=== PATIENT | male | born 1940 | race African-American/Black ===

== ENCOUNTER 2017-08-04 05:47 | Day surgery (SDC) | payer MEDICARE ==
[2017-08-04] MEDS ORDERED: NACL 0.9% 500 ML 500 ML ONE (06:01)
[2017-08-04 06:57] LABS: Basophils % (Auto) 0.9 % (0.0-1.8); Eosinophils % (Auto) 3.4 % (0.0-4.3); Hematocrit 35.2 % (35.5-45.6); Hemoglobin 12.1 gm/dl (11.8-15.2); Mean Corpuscular HGB Conc 34 % (32-34); Mean Corpuscular Hemoglobin 32 pg (28-32); Mean Corpuscular Volume 92 fl (84-94); Platelet Count 181 K/mm3 (140-440); Red Blood Count 3.82 M/mm3 (3.65-5.03); Red Cell Distribution Width 12.6 % (13.2-15.2); White Blood Count 7.5 K/mm3 (4.5-11.0)
[2017-08-04] MEDS ORDERED: NACL 0.9% 500 ML 500 ML IV SCH (07:00)
[2017-08-04 07:09] LABS: INR 0.95 (0.87-1.13)
[2017-08-04 07:12] LABS: Calcium 9.4 mg/dL (8.4-10.2); Chloride 102.2 mmol/L (98-107); Potassium 3.7 mmol/L (3.6-5.0)
[2017-08-04] MEDS ORDERED: HEPARIN/NS 5000 UNIT/500ML(CATH LAB) 1,000 ML IR ONE (08:26)
[2017-08-04] MEDS ORDERED: HEPARIN 10,000 UNITS/10 ML ONE (08:26)
[2017-08-04] MEDS ORDERED: CALAN ONE (08:27)
[2017-08-04] MEDS ORDERED: NITROGLYCERIN SYRINGE 3 ML ONE (08:27)
[2017-08-04] MEDS ORDERED: XYLOCAINE 2% INFILTRATI ONE (08:27)
[2017-08-04] MEDS ORDERED: ECOTRIN PO ONE (08:30)
[2017-08-04] MEDS: VERSED ONE ×2 (08:32→08:50)
[2017-08-04] MEDS: SUBLIMAZE ONE ×2 (08:32→08:50)
--- NOTE | 2017-08-04 10:40 | Discharge Summary ---
Short Stay Discharge Plan Diet: low fat, low cholesterol, low salt Special Instructions: other (Encourage fluids for 48hrs post cardiac cath.) Follow up with: CHRISTINA SALINAS MD [Primary Care Provider] - 7 Days HERMES JACQUES MD [Staff Physician] - 7 Days
--- NOTE | 2017-08-04 11:31 | Cardiac Catherization Report ---
HISTORY: The patient is a 76-year-old gentleman with a history of recurrent chest pain, on medications with an abnormal stress thallium study. Coronary angiography was recommended. PROCEDURE PERFORMED: Left heart catheterization, ventriculography, and coronary angiography via the right radial artery using 5-Azeri Roxie catheters and the pigtail catheter. COMPLICATIONS: None. HEMODYNAMICS: Central aortic pressure 95/55. Left ventricular pressure 119/27. PREPROCEDURE DIAGNOSIS: Coronary artery disease. POSTPROCEDURE DIAGNOSES: Moderate coronary artery disease with angina. SEDATION: Intravenous Versed and fentanyl. TISSUE SAMPLES: None. COMPLICATIONS: None. ESTIMATED BLOOD LOSS: 10-20 mL. ANGIOGRAPHIC RESULTS: 1. Left coronary artery: This vessel has moderate calcification and is diffusely irregular. The left main is free of remarkable disease. The circumflex contains a 50% stenosis in the posterolateral branch. The LAD contains a moderately long 50% stenosis in the mid portion. 2. Right coronary artery: This vessel is the dominant vessel and it is diffusely irregular. The proximal portion contains a 50% stenosis and the mid portion contains 40% stenosis. The RV marginal branch has an ostial 50% stenosis. 3. Left ventricle: The ventriculogram reveals a normal-sized left ventricle with normal systolic function. The ejection fraction is 60-65%, mild calcification to be seen in the thoracic aorta. FINAL IMPRESSION: Moderate diffuse coronary artery disease with normal left ventricular function and symptoms suggestive of angina. PLAN: Aggressive medical therapy, CAD risk factor modification, office followup within 1 week. Encourage fluids for 48 hours. Repeat BNP in the office. JOB# [id number] ARIN/NTS
[2017-08-04] MEDS ORDERED: ULTRAM PO PRN (12:00)
[2017-08-04 12:27] VITALS: BP 121/76
== END 2017-08-04 11:30 | disposition home or self-care (01) ==
LOC: CATHLABREC 05:47
PROVIDERS: ATTEND Internal Medicine
DX: I25.118 Atherosclerotic heart disease of native coronary artery with other forms of angina pectoris (principal); I10 Essential (primary) hypertension; I48.4 Atypical atrial flutter; E78.5 Hyperlipidemia, unspecified; E03.9 Hypothyroidism, unspecified; E10.9 Type 1 diabetes mellitus without complications; Z79.899 Other long term (current) drug therapy; Z79.01 Long term (current) use of anticoagulants; Z79.82 Long term (current) use of aspirin; Z87.891 Personal history of nicotine dependence
CPT/HCPCS: 36415; 80048; 82962; 85025; 85610; 85730; 93005; 93010; 93458; 99156; 99157; C1894; J1644; J2250; J3010; J7040; Q9967

== ENCOUNTER 2020-10-27 15:03 | Emergency (ER) | payer MEDICARE ==
--- NOTE | 2020-10-27 15:16 | Event Note ---
ED Screening Note ED Screening Note: sent by PCP for H/H no blood in stool no CP no SOB no abd pain never had transfusion before PMHx DM, COPD, hypothyroidism, HLD, HTN This initial assessment/diagnostic orders/clinical plan/treatment(s) is/are subject to change based on patients health status, clinical progression and re-assessment by fellow clinical providers in the ED. Further treatment and workup at subsequent clinical providers discretion. Patient/guardian urged not to elope from the ED as their condition may be serious if not clinically assessed and managed. Initial orders include: labs
[2020-10-27 16:19] LABS: Hematocrit 24.9 % (35.5-45.6); Hemoglobin 8.3 gm/dl (11.8-15.2); Mean Corpuscular HGB Conc 33 % (32-34); Mean Corpuscular Volume 101 fl (84-94); Platelet Count 429 K/mm3 (140-440); Red Blood Count 2.46 M/mm3 (3.65-5.03)
[2020-10-27 16:29] LABS: Albumin 2.9 g/dL (3.9-5); Calcium 8.5 mg/dL (8.4-10.2)
[2020-10-27 18:29] LABS: Band Neutrophils # (Manual) 0.3 K/mm3; Total Cells Counted 100
[2020-10-27 18:31] LABS: Anisocytosis 1+; Ovalocytes Rare
[2020-10-27 18:32] LABS: Platelet Estimate Consistent w Auto
--- NOTE | 2020-10-27 19:27 | Emergency Department Report ---
ED Recheck HPI - General Chief Complaint: Recheck/Abnormal Lab/Rx Stated Complaint: BLOOD DISORDER Time Seen by Provider: 10/27/20 15:15 Source: patient Mode of arrival: Ambulatory Limitations: No Limitations - History of Present Illness Initial Comments: 79-year-old male, history of COPD, diabetes, throat cancer status post treatment, COVID-19, presents to ED for blood transfusion. Patient had lab work done at PCPs office 5 days ago which shows hemoglobin of 6.7. Patient advised to come to the emergency room for transfusion. MD Complaint: abnormal lab -: days(s) (5) Returns Today for: CBOAL Symptoms Since Prior Visit: no new symptoms Associated Symptoms: denies: fever, chills, chest pain, shortness of breath, nasuea, abdominal pain - Related Data Home Medications Medication Instructions Recorded Confirmed Last Taken Aspirin [Aspirin Enteric Coated] 81 mg PO DAILY 08/11/13 09/26/20 08/03/17 Metoprolol [Lopressor TAB] 50 mg PO DAILY 08/11/13 09/26/20 08/03/17 amLODIPine 10 mg PO DAILY 08/11/13 09/26/20 08/03/17 Tamsulosin [Flomax] 0.4 mg PO DAILY 08/14/13 09/26/20 08/03/17 Insulin NPH/Regular [NovoLIN 70/30] 52 unit SQ QAM 08/19/13 09/26/20 08/03/17 Losartan/Hydrochlorothiazide 1 tab PO QDAY 08/04/15 09/26/20 Unknown [Hyzaar 50-12.5 TAB] Rosuvastatin (Nf) [Crestor] 10 mg PO QHS 08/04/15 09/26/20 08/03/17 Insulin NPH/Regular [NovoLIN 70/30] 56 unit SQ QPM 08/04/17 09/26/20 08/03/17 Levocetirizine Dihydrochloride 5 mg PO DAILY 08/04/17 09/26/20 08/03/17 [Xyzal] Levothyroxine [Synthroid] 125 mcg PO QAM 08/04/17 09/26/20 08/03/17 Losartan/Hydrochlorothiazide 1 tab PO DAILY 08/04/17 09/26/20 08/03/17 [Hyzaar 100-12.5 Tablet] Previous Rx's Medication Instructions Recorded Last Taken Type Albuterol Mdi (or & Nicu Only) 2 puff IH Q4H PRN #1 vial 08/19/13 Unknown Rx [ProAir HFA Inhaler] Montelukast [Singulair] 10 mg PO QHS #30 tablet 08/19/13 08/03/17 Rx Acetaminophen [Acetaminophen TAB] 650 mg PO Q4H PRN tablet 09/29/20 Unknown Rx Potassium Chloride [K-Dur] 10 meq PO QDAY #4 tablet 09/29/20 Unknown Rx dexAMETHasone [Dexamethasone] 6 mg PO DAILY #4 tablet 09/29/20 Unknown Rx Allergies Allergy/AdvReac Type Severity Reaction Status Date / Time amoxicillin Allergy Unknown Verified 08/04/15 12:51 ED Review of Systems ROS: Stated complaint: BLOOD DISORDER Other details as noted in HPI Comment: All other systems reviewed and negative Constitutional: denies: chills, fever Respiratory: denies: cough, shortness of breath Cardiovascular: denies: chest pain Gastrointestinal: denies: abdominal pain, vomiting, diarrhea Genitourinary: denies: dysuria, frequency ED Past Medical Hx - Past Medical History Previous Medical History?: Yes Hx Hypertension: Yes Hx Heart Attack/AMI: No Hx Diabetes: Yes (insulin) Hx GERD: Yes Hx Arthritis: Yes Hx Headaches / Migraines: No Hx COPD: Yes Hx HIV: No Additional medical history: family unsure of hx pt unable to speak, throat cancer and post treatment had difficulty digesting his food this and put on Creon, elevated cholesterol - Social History Smoking Status: Former Smoker - Medications Home Medications: Home Medications Medication Instructions Recorded Confirmed Last Taken Type Aspirin [Aspirin Enteric Coated] 81 mg PO DAILY 08/11/13 09/26/20 08/03/17 History Metoprolol [Lopressor TAB] 50 mg PO DAILY 08/11/13 09/26/20 08/03/17 History amLODIPine 10 mg PO DAILY 08/11/13 09/26/20 08/03/17 History Tamsulosin [Flomax] 0.4 mg PO DAILY 08/14/13 09/26/20 08/03/17 History Albuterol Mdi (or & Nicu Only) 2 puff IH Q4H PRN #1 vial 08/19/13 09/26/20 Unknown Rx [ProAir HFA Inhaler] Insulin NPH/Regular [NovoLIN 70/30] 52 unit SQ QAM 08/19/13 09/26/20 08/03/17 History Montelukast [Singulair] 10 mg PO QHS #30 tablet 08/19/13 09/26/20 08/03/17 Rx Losartan/Hydrochlorothiazide 1 tab PO QDAY 08/04/15 09/26/20 Unknown History [Hyzaar 50-12.5 TAB] Rosuvastatin (Nf) [Crestor] 10 mg PO QHS 08/04/15 09/26/20 08/03/17 History Insulin NPH/Regular [NovoLIN 70/30] 56 unit SQ QPM 08/04/17 09/26/20 08/03/17 History Levocetirizine Dihydrochloride 5 mg PO DAILY 08/04/17 09/26/20 08/03/17 History [Xyzal] Levothyroxine [Synthroid] 125 mcg PO QAM 08/04/17 09/26/20 08/03/17 History Losartan/Hydrochlorothiazide 1 tab PO DAILY 08/04/17 09/26/20 08/03/17 History [Hyzaar 100-12.5 Tablet] Acetaminophen [Acetaminophen TAB] 650 mg PO Q4H PRN tablet 09/29/20 Unknown Rx Potassium Chloride [K-Dur] 10 meq PO QDAY #4 tablet 09/29/20 Unknown Rx dexAMETHasone [Dexamethasone] 6 mg PO DAILY #4 tablet 09/29/20 Unknown Rx ED Physical Exam - General Limitations: No Limitations General appearance: alert, in no apparent distress - Head Head exam: Present: atraumatic, normocephalic - Eye Eye exam: Present: normal appearance, EOMI - ENT ENT exam: Present: mucous membranes moist - Neck Neck exam: Present: normal inspection - Respiratory Respiratory exam: Present: normal lung sounds bilaterally. Absent: respiratory distress - Cardiovascular Cardiovascular Exam: Present: regular rate, normal rhythm - GI/Abdominal GI/Abdominal exam: Present: soft. Absent: distended, tenderness - Extremities Exam Extremities exam: Present: normal inspection - Neurological Exam Neurological exam: Present: alert, oriented X3 - Psychiatric Psychiatric exam: Present: normal affect, normal mood - Skin Skin exam: Present: warm, dry, intact, normal color ED Course Vital Signs 10/27/20 10/27/20 15:17 20:47 Temperature 97.8 F Pulse Rate 72 69 Respiratory 18 16 Rate Blood Pressure 123/63 121/66 [Right] O2 Sat by Pulse 97 98 Oximetry - Reevaluation(s) Reevaluation #1: 10/27/20 21:00 Son states pt unable to urinate at this time. Refuses straight cath. Son states that he is ready to take patient home. Spoke to son using Turkmen language line retail stock clerk. Explained that WBCs elevated, want to r/o UTI. Son undertands there may be an occult infection. Pt afebrile, not tachycardic, BP normal at this time. Advised to return to ED or f/u w/ PCP if he begins to feel abnormal in any way or show any signs of infection. ED Recheck MDM - Medical Decision Making 79-year-old male presents to ED for hemoglobin of 6.7. Labs drawn 5 days ago. PCP instructed patient to come to ED for blood transfusion. Today, hemoglobin is 8.3. Patient not require a blood transfusion at this time. Of note, WBCs elevated to 16. Negative review of systems. Patient is afebrile and remainder of vitals are normal. Patient unable to give urine sample while here in the ED, however also refusing catheterization. Spoke with son about need for urine sample and he understands. Advised son to take patient to PCP or return to ED if any signs of infection. Will discharge at this time. Critical care attestation.: If time is entered above; I have spent that time in minutes in the direct care of this critically ill patient, excluding procedure time. ED Disposition Clinical Impression: Anemia, Leukocytosis Disposition: -01 TO HOME OR SELFCARE Is pt being admited?: No Condition: Stable Instructions: Complete Blood Count Additional Instructions: Hemoglobin is 8.3 today. Referrals: PRIMARY CARE, [Primary Care Provider] - 3-5 Days Time of Disposition: 20:57
[2020-10-27 20:48] VITALS: BP 121/66
== END 2020-10-27 20:59 | disposition home or self-care (01) ==
LOC: ED 15:03
DX: D64.9 Anemia, unspecified (principal); D72.829 Elevated white blood cell count, unspecified; I10 Essential (primary) hypertension; E11.9 Type 2 diabetes mellitus without complications; K21.9 Gastro-esophageal reflux disease without esophagitis; M19.91 Primary osteoarthritis, unspecified site; J44.9 Chronic obstructive pulmonary disease, unspecified; Z87.891 Personal history of nicotine dependence; Z79.4 Long term (current) use of insulin; Z79.899 Other long term (current) drug therapy; Z88.1 Allergy status to other antibiotic agents
CPT/HCPCS: 36415; 80053; 85007; 85025; 86850; 86900; 86901

== ENCOUNTER 2021-05-01 07:21 | Observation (INO) | payer MEDICARE ==
--- NOTE | 2021-05-01 09:11 | Emergency Department Report ---
HPI - General Chief Complaint: Recheck/Abnormal Lab/Rx Time Seen by Provider: 05/01/21 08:49 - HPI HPI: Room 2 The patient is an 80-year-old male present with a chief complaint of anemia. The patient had routine labs drawn by his primary physician yesterday. This morning the patient was called and told to come to the emergency department as his hemoglobin was low at 4.5. Patient denies symptoms including nausea vomiting diarrhea. Patient denies melena. ED Past Medical Hx - Past Medical History Hx Hypertension: Yes Hx Diabetes: Yes (insulin) Hx GERD: Yes Hx of Cancer: Yes (Throat CA, prostate CA) Hx Arthritis: Yes Hx COPD: Yes Additional medical history: family unsure of hx pt unable to speak, throat cancer and post treatment had difficulty digesting his food this and put on Creon, elevated cholesterol - Surgical History Additional Surgical History: "Prostate surgery" - Family History Family history: no significant - Social History Smoking Status: Never Smoker Substance Use Type: None - Medications Home Medications: Home Medications Medication Instructions Recorded Confirmed Last Taken Type Aspirin [Aspirin Enteric Coated] 81 mg PO DAILY 08/11/13 09/26/20 08/03/17 History Metoprolol [Lopressor TAB] 50 mg PO DAILY 08/11/13 09/26/20 08/03/17 History amLODIPine 10 mg PO DAILY 08/11/13 09/26/20 08/03/17 History Tamsulosin [Flomax] 0.4 mg PO DAILY 08/14/13 09/26/20 08/03/17 History Albuterol Mdi (or & Nicu Only) 2 puff IH Q4H PRN #1 vial 08/19/13 09/26/20 Unknown Rx [ProAir HFA Inhaler] Insulin NPH/Regular [NovoLIN 70/30] 52 unit SQ QAM 08/19/13 09/26/20 08/03/17 History Montelukast [Singulair] 10 mg PO QHS #30 tablet 08/19/13 09/26/20 08/03/17 Rx Losartan/Hydrochlorothiazide 1 tab PO QDAY 08/04/15 09/26/20 Unknown History [Hyzaar 50-12.5 TAB] Rosuvastatin (Nf) [Crestor] 10 mg PO QHS 08/04/15 09/26/20 08/03/17 History Insulin NPH/Regular [NovoLIN 70/30] 56 unit SQ QPM 08/04/17 09/26/20 08/03/17 History Levocetirizine Dihydrochloride 5 mg PO DAILY 08/04/17 09/26/20 08/03/17 History [Xyzal] Levothyroxine [Synthroid] 125 mcg PO QAM 08/04/17 09/26/20 08/03/17 History Losartan/Hydrochlorothiazide 1 tab PO DAILY 08/04/17 09/26/20 08/03/17 History [Hyzaar 100-12.5 Tablet] Acetaminophen [Acetaminophen TAB] 650 mg PO Q4H PRN tablet 09/29/20 Unknown Rx Potassium Chloride [K-Dur] 10 meq PO QDAY #4 tablet 09/29/20 Unknown Rx dexAMETHasone [Dexamethasone] 6 mg PO DAILY #4 tablet 09/29/20 Unknown Rx ED Review of Systems ROS: Stated complaint: BLOOD TRANSFUSION Other details as noted in HPI Constitutional: no symptoms reported Eyes: denies: eye pain ENT: denies: throat pain Respiratory: no symptoms reported Cardiovascular: denies: chest pain Endocrine: no symptoms reported Gastrointestinal: denies: vomiting, melena Genitourinary: denies: dysuria Musculoskeletal: denies: back pain Neurological: denies: headache Physical Exam - Physical Exam Vital Signs: Vital Signs 05/01/21 05/01/21 07:43 07:46 Temperature 98.0 F Pulse Rate 65 Respiratory 17 Rate Blood Pressure 164/63 O2 Sat by Pulse 94 Oximetry Physical Exam: GENERAL: The patient is well-developed well-nourished male lying on stretcher not appearing to be in acute distress. [] HEENT: Normocephalic. Atraumatic. Extraocular motions are intact. Patient has moist mucous membranes. NECK: Supple. Trachea midline CHEST/LUNGS: Clear to auscultation. There is no respiratory distress noted. HEART/CARDIOVASCULAR: Regular. There is no tachycardia. There is no gallop rub or murmur. ABDOMEN: Abdomen is soft, but diffuse discomfort to palpation. No rebound or guarding. Patient has normal bowel sounds. There is no abdominal distention. SKIN: There is no rash. There is no edema. There is no diaphoresis. NEURO: The patient is awake, alert, and oriented. The patient is cooperative. The patient has no focal neurologic deficits. The patient has normal speech MUSCULOSKELETAL: There is no evidence of acute injury. RECTAL: Faint guaiac positive brown stool ED Course Vital Signs 05/01/21 05/01/21 07:43 07:46 Temperature 98.0 F Pulse Rate 65 Respiratory 17 Rate Blood Pressure 164/63 O2 Sat by Pulse 94 Oximetry - Consultations Consultation #1: 05/01/21 10:42 GI paged 05/01/21 10:[address] Cabral ED Medical Decision Making - Lab Data Result diagrams: 05/01/21 09:25 05/01/21 09:25 Laboratory Tests 05/01/21 05/01/21 05/01/21 07:44 09:25 09:25 WBC 6.2 RBC 1.76 L Hgb 4.9 L* Hct 15.6 L* MCV 87 MCH 28 MCHC 32 RDW 18.4 H Plt Count 201 Lymph % (Auto) 20.1 [place] % (Auto) 8.2 H Eos % (Auto) 4.5 H Baso % (Auto) 2.8 H Lymph # (Auto) 1.3 [place] # (Auto) 0.5 Eos # (Auto) 0.3 Baso # (Auto) 0.2 H Seg Neutrophils % 64.4 Seg Neutrophils # 4.0 PT 14.8 INR 1.10 APTT 31.0 Sodium Potassium Chloride Carbon Dioxide Anion Gap BUN Creatinine Estimated GFR BUN/Creatinine Ratio Glucose POC Glucose 190 H Calcium Blood Type Crossmatch 05/01/21 05/01/21 09:25 09:27 WBC RBC Hgb Hct MCV MCH MCHC RDW Plt Count Lymph % (Auto) [place] % (Auto) Eos % (Auto) Baso % (Auto) Lymph # (Auto) [place] # (Auto) Eos # (Auto) Baso # (Auto) Seg Neutrophils % Seg Neutrophils # PT INR APTT Sodium 141 Potassium 4.2 Chloride 110.9 H Carbon Dioxide 25 Anion Gap 9 BUN 15 Creatinine 1.6 H Estimated GFR 42 BUN/Creatinine Ratio 9 Glucose 182 H POC Glucose Calcium 7.4 L Blood Type B POSITIVE Crossmatch See Detail - Differential Diagnosis GI bleed, anemia Critical care attestation.: If time is entered above; I have spent that time in minutes in the direct care of this critically ill patient, excluding procedure time. ED Disposition Clinical Impression: GI bleed, Anemia Disposition: ADMITTED INPATIENT Is pt being admited?: Yes Does the pt Need Aspirin: No Condition: Fair Referrals: LISET HOLT MD [Primary Care Provider] - 3-5 Days Time of Disposition: 10:42 (Hospitalist called (Dr. Mendoza))
[2021-05-01 09:52] LABS: Basophils # (Auto) 0.2 K/mm3 (0.0-0.1); Basophils % (Auto) 2.8 % (0.0-1.8); Eosinophils # (Auto) 0.3 K/mm3 (0.0-0.4); Eosinophils % (Auto) 4.5 % (0.0-4.3); Lymphocytes # (Auto) 1.3 K/mm3 (1.2-5.4); Lymphocytes % (Auto) 20.1 % (13.4-35.0); Mean Corpuscular HGB Conc 32 % (32-34); Mean Corpuscular Volume 87 fl (84-94); Monocytes # (Auto) 0.5 K/mm3 (0.0-0.8); Monocytes % (Auto) 8.2 % (0.0-7.3); Platelet Count 201 K/mm3 (140-440); Red Cell Distribution Width 18.4 % (13.2-15.2)
[2021-05-01 09:58] LABS: Red Blood Count 1.76 M/mm3 (3.65-5.03)
[2021-05-01 10:06] LABS: Hematocrit 15.6 % (35.5-45.6); Hemoglobin 4.9 gm/dl (11.8-15.2); INR 1.1 (0.87-1.13)
[2021-05-01 10:07] LABS: Calcium 7.4 mg/dL (8.4-10.2)
[2021-05-01] MEDS ORDERED: SODIUM CHLORIDE 0.9% 500 ML 500 ML IV ONE (10:12)
[2021-05-01] MEDS ORDERED: ACETAMINOPHEN 325 MG TAB PO PRN (11:20)
[2021-05-01] MEDS ORDERED: ONDANSETRON 4 MG/2 ML INJ IV PRN (11:20)
[2021-05-01] MEDS ORDERED: oxyCODONE /ACETAMINOPHEN 5-325MG TAB PO PRN (11:20)
[2021-05-01] MEDS ORDERED: DEXTROSE 50% IN WATER (25GM) 50 ML SYRINGE IV PRN ×2 (11:22→16:25)
[2021-05-01] MEDS ORDERED: SODIUM CHLORIDE 0.9% 1000 ML 1,000 ML IV SCH (11:30)
[2021-05-01] MEDS: INSULIN REGULAR, HUMAN 100 UNITS/1 ML SUB-Q SCH ×2 (11:57→17:06)
[2021-05-01] MEDS ORDERED: PANTOPRAZOLE 40 MG INJ IV SCH (12:00)
--- NOTE | 2021-05-01 12:31 | Gastroenterology Consultation ---
History of Present Illness - Reason for Consult Consult date: 05/01/21 anemia Requesting physician: RONI CENTENO - History of Present Illness This is an 80 yo male with pmh of HTN, DM, COPD, and COVID pneumonia in 09/2020 presenting to the ED for symptomatic anemia. Patient had a routine labs yesterday with PCP and was told to go to the ED for low hemoglobin. He has fatigue but no nausea/vomiting, blood in the stools, melena, or weight loss. Reports upper abdominal pain. In the ED, patient noted to have Hgb at 4.9 with normal wbc and platelets. Rectal exam with brown stool, occult blood positive. No prior EGD/colonoscopy. Medication list reviewed. Past History Past Medical History: COPD, GERD, hypertension Social history: lives with family. denies: smoking, alcohol abuse Family history: other (no history of colon cancer) Medications and Allergies Allergies Allergy/AdvReac Type Severity Reaction Status Date / Time amoxicillin Allergy Unknown Verified 08/04/15 12:51 Home Medications Medication Instructions Recorded Confirmed Last Taken Type Aspirin [Aspirin Enteric Coated] 81 mg PO DAILY 08/11/13 09/26/20 08/03/17 History Metoprolol [Lopressor TAB] 50 mg PO DAILY 08/11/13 09/26/20 08/03/17 History amLODIPine 10 mg PO DAILY 08/11/13 09/26/20 08/03/17 History Tamsulosin [Flomax] 0.4 mg PO DAILY 08/14/13 09/26/20 08/03/17 History Albuterol Mdi (or & Nicu Only) 2 puff IH Q4H PRN #1 vial 08/19/13 09/26/20 Unknown Rx [ProAir HFA Inhaler] Insulin NPH/Regular [NovoLIN 70/30] 52 unit SQ QAM 08/19/13 09/26/20 08/03/17 History Montelukast [Singulair] 10 mg PO QHS #30 tablet 08/19/13 09/26/20 08/03/17 Rx Losartan/Hydrochlorothiazide 1 tab PO QDAY 08/04/15 09/26/20 Unknown History [Hyzaar 50-12.5 TAB] Rosuvastatin (Nf) [Crestor] 10 mg PO QHS 08/04/15 09/26/20 08/03/17 History Insulin NPH/Regular [NovoLIN 70/30] 56 unit SQ QPM 08/04/17 09/26/20 08/03/17 History Levocetirizine Dihydrochloride 5 mg PO DAILY 08/04/17 09/26/20 08/03/17 History [Xyzal] Levothyroxine [Synthroid] 125 mcg PO QAM 08/04/17 09/26/20 08/03/17 History Losartan/Hydrochlorothiazide 1 tab PO DAILY 08/04/17 09/26/20 08/03/17 History [Hyzaar 100-12.5 Tablet] Acetaminophen [Acetaminophen TAB] 650 mg PO Q4H PRN tablet 09/29/20 Unknown Rx Potassium Chloride [K-Dur] 10 meq PO QDAY #4 tablet 09/29/20 Unknown Rx dexAMETHasone [Dexamethasone] 6 mg PO DAILY #4 tablet 09/29/20 Unknown Rx Active Meds: Active Medications Acetaminophen (Acetaminophen 325 Mg Tab) 650 mg PO Q4H PRN PRN Reason: Pain MILD(1-3)/Fever >100.5/PALMER Dextrose (Dextrose 50% In Water (25gm) 50 Ml Syringe) 50 ml IV Q30MIN PRN; Protocol PRN Reason: Hypoglycemia Sodium Chloride (Nacl 0.9% 1000 Ml) 1,000 mls @ 75 mls/hr IV DIRECT NICOLASA Stop: 05/03/21 00:49 Insulin Human Regular (Insulin Regular, Human 100 Units/1 Ml) 0 units SUB-Q ACH S NICOLASA; Protocol Last Admin: 05/01/21 11:57 Dose: Not Given Documented by: Ondansetron HCl (Ondansetron 4 Mg/2 Ml Inj) 4 mg IV Q8H PRN PRN Reason: Nausea And Vomiting Oxycodone/Acetaminophen (Oxycodone /Acetaminophen 5-325mg Tab) 1 tab PO Q6H PRN PRN Reason: Pain, Moderate (4-6) Pantoprazole Sodium (Pantoprazole 40 Mg Inj) 40 mg IV BID NICOLASA Sodium Chloride (Sodium Chloride 0.9% 10 Ml Flush Syringe) 10 ml IV BID NICOLASA Sodium Chloride (Sodium Chloride 0.9% 10 Ml Flush Syringe) 10 ml IV PRN PRN PRN Reason: LINE FLUSH Review of Systems - Review of Systems All systems: negative Constitutional: no weight loss, no weight gain Cardiovascular: no chest pain, no edema, no palpitations Respiratory: no cough, no shortness of breath Gastrointestinal: abdominal pain, no nausea, no vomiting, no diarrhea, no constipation, no BRBPR, no melena, no hematochezia Neurological: weakness Psychiatric: anxiety Endocrine: no cold intolerance Hematologic/Lymphatic: no easy bruising Allergic/Immunologic: no wheezing Exam - Constitutional Vital Signs: Temp Pulse Resp BP Pulse Ox 98.1 F 64 19 144/64 100 05/01/21 11:48 05/01/21 11:48 05/01/21 11:48 05/01/21 11:48 05/01/21 11:48 General appearance: no acute distress - EENT Eyes: EOM intact ENT: hearing intact - Neck Neck: supple - Respiratory Respiratory effort: normal - Cardiovascular Rhythm: regular Heart Sounds: Present: S1 & S2 - Gastrointestinal General gastrointestinal: Present: soft, tender, non-distended, normal bowel sounds - Integumentary Integumentary: Present: clear - Psychiatric Psychiatric: appropriate mood/affect - Labs CBC & Chem 7: 05/01/21 09:25 05/01/21 09:25 Lab Results: Laboratory Results - last 24 hr 05/01/21 05/01/21 05/01/21 07:44 09:25 09:25 WBC 6.2 RBC 1.76 L Hgb 4.9 L* Hct 15.6 L* MCV 87 MCH 28 MCHC 32 RDW 18.4 H Plt Count 201 Lymph % (Auto) 20.1 [place] % (Auto) 8.2 H Eos % (Auto) 4.5 H Baso % (Auto) 2.8 H Lymph # (Auto) 1.3 [place] # (Auto) 0.5 Eos # (Auto) 0.3 Baso # (Auto) 0.2 H Seg Neutrophils % 64.4 Seg Neutrophils # 4.0 PT 14.8 INR 1.10 APTT 31.0 Sodium Potassium Chloride Carbon Dioxide Anion Gap BUN Creatinine Estimated GFR BUN/Creatinine Ratio Glucose POC Glucose 190 H Calcium Blood Type Antibody Screen Crossmatch 05/01/21 05/01/21 05/01/21 09:25 09:27 11:56 WBC RBC Hgb Hct MCV MCH MCHC RDW Plt Count Lymph % (Auto) [place] % (Auto) Eos % (Auto) Baso % (Auto) Lymph # (Auto) [place] # (Auto) Eos # (Auto) Baso # (Auto) Seg Neutrophils % Seg Neutrophils # PT INR APTT Sodium 141 Potassium 4.2 Chloride 110.9 H Carbon Dioxide 25 Anion Gap 9 BUN 15 Creatinine 1.6 H Estimated GFR 42 BUN/Creatinine Ratio 9 Glucose 182 H POC Glucose 122 H Calcium 7.4 L Blood Type B POSITIVE Antibody Screen Negative Crossmatch See Detail Assessment and Plan This is an 80 yo male with pmh of HTN, DM, COPD, and COVID pneumonia in 09/2020 presenting to the ED for symptomatic anemia. # Symptomatic anemia. acute on chronic anemia. - Hgb at 4.9 with normal wbc and platelets. Rectal exam with brown stool, occult blood positive by ED doctor. - No prior EGD/colonoscopy. - no overt GI bleeding symptoms. - previous Hgb at 8.3 in 10/2020. # Abdominal pain - mild TTP over epigastrum. - ddx including gastritis, PUD. Rec - transfuse with Hgb goal >7. - recommend CT a/p for abdominal pain work up - PPI IV bid - will plan for EGD/colonoscopy on Tuesday. clear liquids for now. Prep on Tuesday evening with [facility]. - will follow. - Patient Problems (1) Anemia Current Visit: Yes Status: Acute
--- NOTE | 2021-05-01 14:33 | History and Physical Report ---
History of Present Illness Date of admission: 05/01/21 10:43 Chief complaint: Fatigue History of present illness: 80-year-old [place] male with past medical history of HTN, diabetes, COPD, Covid infection 10/11/2020 presenting to the emergency department after being sent by his primary care doctor, Dr Natasha Grimes. Patient was present at bedside along with son in law. Patient is apparently been more fatigued over the last few days. He was also found to have low blood sugar readings by his family. Daughter and son-in-law took patient to primary who completed routine labs yesterday and patient was found to have low hemoglobin. Patient's only implants is fatigue and slight epigastric tenderness. He denies any headache, chest pain, nausea, vomiting, constipation, diarrhea, melena/hematochezia in stool. Denies any history of prior EGD/colonoscopy. He denies any family history of colon cancer. He denies any significant weight loss over the last few months. He denies significant NSAID or anticoagulant use. Patient was taking daily aspirin however was told by primary care to discontinue taking this. PMH: COPD, GERD, hypertension, history of throat cancer, history of prostate cancer PSH: Throat cancer status post surgery, prostate cancer status post prostate resection FH: Reviewed and noncontributory SH: Smokingdenies EtOHdenies Recreational drugsdenies Lives with daughter (Melina Shelby [phone]) and son-in-law Speaks Panamanian almost exclusively. Past History Past Medical History: COPD, GERD, hypertension Social history: lives with family. denies: smoking, alcohol abuse Family history: other (no history of colon cancer) Medications and Allergies Allergies Allergy/AdvReac Type Severity Reaction Status Date / Time amoxicillin Allergy Unknown Verified 08/04/15 12:51 Home Medications Medication Instructions Recorded Confirmed Last Taken Type Aspirin [Aspirin Enteric Coated] 81 mg PO DAILY 08/11/13 09/26/20 08/03/17 History Metoprolol [Lopressor TAB] 50 mg PO DAILY 08/11/13 09/26/20 08/03/17 History amLODIPine 10 mg PO DAILY 08/11/13 09/26/20 08/03/17 History Tamsulosin [Flomax] 0.4 mg PO DAILY 08/14/13 09/26/20 08/03/17 History Albuterol Mdi (or & Nicu Only) 2 puff IH Q4H PRN #1 vial 08/19/13 09/26/20 Unknown Rx [ProAir HFA Inhaler] Insulin NPH/Regular [NovoLIN 70/30] 52 unit SQ QAM 08/19/13 09/26/20 08/03/17 History Montelukast [Singulair] 10 mg PO QHS #30 tablet 08/19/13 09/26/20 08/03/17 Rx Losartan/Hydrochlorothiazide 1 tab PO QDAY 08/04/15 09/26/20 Unknown History [Hyzaar 50-12.5 TAB] Rosuvastatin (Nf) [Crestor] 10 mg PO QHS 08/04/15 09/26/20 08/03/17 History Insulin NPH/Regular [NovoLIN 70/30] 56 unit SQ QPM 08/04/17 09/26/20 08/03/17 History Levocetirizine Dihydrochloride 5 mg PO DAILY 08/04/17 09/26/20 08/03/17 History [Xyzal] Levothyroxine [Synthroid] 125 mcg PO QAM 08/04/17 09/26/20 08/03/17 History Losartan/Hydrochlorothiazide 1 tab PO DAILY 08/04/17 09/26/20 08/03/17 History [Hyzaar 100-12.5 Tablet] Acetaminophen [Acetaminophen TAB] 650 mg PO Q4H PRN tablet 09/29/20 Unknown Rx Potassium Chloride [K-Dur] 10 meq PO QDAY #4 tablet 09/29/20 Unknown Rx dexAMETHasone [Dexamethasone] 6 mg PO DAILY #4 tablet 09/29/20 Unknown Rx Active Meds: Active Medications Acetaminophen (Acetaminophen 325 Mg Tab) 650 mg PO Q4H PRN PRN Reason: Pain MILD(1-3)/Fever >100.5/PALMER Dextrose (Dextrose 50% In Water (25gm) 50 Ml Syringe) 50 ml IV Q30MIN PRN; Protocol PRN Reason: Hypoglycemia Sodium Chloride (Nacl 0.9% 1000 Ml) 1,000 mls @ 75 mls/hr IV DIRECT NICOLASA Stop: 05/03/21 00:49 Insulin Human Regular (Insulin Regular, Human 100 Units/1 Ml) 0 units SUB-Q ACHS NICOLASA; Protocol Last Admin: 05/01/21 11:57 Dose: Not Given Documented by: Ondansetron HCl (Ondansetron 4 Mg/2 Ml Inj) 4 mg IV Q8H PRN PRN Reason: Nausea And Vomiting Oxycodone/Acetaminophen (Oxycodone /Acetaminophen 5-325mg Tab) 1 tab PO Q6H PRN PRN Reason: Pain, Moderate (4-6) Pantoprazole Sodium (Pantoprazole 40 Mg Inj) 40 mg IV BID [facility] Last Admin: 05/01/21 13:11 Dose: 40 mg Documented by: Sodium Chloride (Sodium Chloride 0.9% 10 Ml Flush Syringe) 10 ml IV BID [facility] Sodium Chloride (Sodium Chloride 0.9% 10 Ml Flush Syringe) 10 ml IV PRN PRN PRN Reason: LINE FLUSH Review of Systems All systems: negative Constitutional: fatigue Gastrointestinal: abdominal pain Exam - Physical Exam Narrative exam: Physical Exam: Constitutional: Alert, cooperative. No acute distress, elevated BMI Head, Ears, Nose: Normocephalic, atraumatic. External ears, nose normal Eyes: pale Conjunctivae,corneas clear. No icterus. No ptosis. Neck: Supple, no meningeal signs Oral: dentition fair, no thrush Cardiovascular: S1, S2 normal. Respiratory: Good air entry, clear to auscultation bilaterally GI: Soft, mild tenderness in epigastrum; bowel sounds normal. No peritoneal signs. Musculoskeletal: No pedal edema, no cyanosis. Skin: No rash or abscess, see nursing assessment for full skin exam Hem/Lymphatic: No palpable cervical or supraclavicular nodes. No lymphangitis Psych: Mood ok. Affect normal Neurological: Awake, alert, oriented. No gross abnormality - Constitutional Vitals: Temp Pulse Resp BP Pulse Ox 98.2 F 68 19 145/74 99 05/01/21 14:25 05/01/21 14:25 05/01/21 14:25 05/01/21 14:25 05/01/21 14:25 Results - Labs CBC & Chem 7: 05/01/21 15:33 05/01/21 09:25 Labs: Laboratory Last Values WBC 6.2 K/mm3 (4.5-11.0) 05/01/21 09:25 RBC 1.76 M/mm3 (3.65-5.03) L 05/01/21 09:25 Hgb 4.9 gm/dl (11.8-15.2) L* 05/01/21 09:25 Hct 15.6 % (35.5-45.6) L* 05/01/21 09:25 MCV 87 fl (84-94) 05/01/21 09:25 MCH 28 pg (28-32) 05/01/21 09:25 MCHC 32 % (32-34) 05/01/21 09:25 RDW 18.4 % (13.2-15.2) H 05/01/21 09:25 Plt Count 201 K/mm3 (140-440) 05/01/21 09:25 Lymph % (Auto) 20.1 % (13.4-35.0) 05/01/21 09:25 [place] % (Auto) 8.2 % (0.0-7.3) H 05/01/21 09:25 Eos % (Auto) 4.5 % (0.0-4.3) H 05/01/21 09:25 Baso % (Auto) 2.8 % (0.0-1.8) H 05/01/21 09:25 Lymph # (Auto) 1.3 K/mm3 (1.2-5.4) 05/01/21 09:25 [place] # (Auto) 0.5 K/mm3 (0.0-0.8) 05/01/21 09:25 Eos # (Auto) 0.3 K/mm3 (0.0-0.4) 05/01/21 09:25 Baso # (Auto) 0.2 K/mm3 (0.0-0.1) H 05/01/21 09:25 Seg Neutrophils % 64.4 % (40.0-70.0) 05/01/21 09:25 Seg Neutrophils # 4.0 K/mm3 (1.8-7.7) 05/01/21 09:25 PT 14.8 Sec. (12.2-14.9) 05/01/21 09:25 INR 1.10 (0.87-1.13) 05/01/21 09:25 APTT 31.0 Sec. (24.2-36.6) 05/01/21 09:25 Sodium 141 mmol/L (137-145) 05/01/21 09:25 Potassium 4.2 mmol/L (3.6-5.0) 05/01/21 09:25 Chloride 110.9 mmol/L (98-107) H 05/01/21 09:25 Carbon Dioxide 25 mmol/L (22-30) 05/01/21 09:25 Anion Gap 9 mmol/L 05/01/21 09:25 BUN 15 mg/dL (9-20) 05/01/21 09:25 Creatinine 1.6 mg/dL (0.8-1.3) H 05/01/21 09:25 Estimated GFR 42 ml/min 05/01/21 09:25 BUN/Creatinine Ratio 9 % 05/01/21 09:25 Glucose 182 mg/dL (75-100) H 05/01/21 09:25 POC Glucose 122 mg/dL (70-105) H 05/01/21 11:56 Calcium 7.4 mg/dL (8.4-10.2) L 05/01/21 09:25 Blood Type B POSITIVE 05/01/21 09:27 Antibody Screen Negative 05/01/21 09:27 Crossmatch See Detail 05/01/21 09:27 Microbiology: Microbiology 05/01/21 10:38 Stool Stool Occult Blood (NELIDA) - Final Assessment and Plan Assessment and plan: 1. Suspected gastrointestinal bleed -Fatigue, pale skin and conjunctiva. Vital signs stable on encounter -Hgb 4.9 on admission. Occult blood positive -ED ordered 1 unit PRBC, additional 1 unit PRBC ordered -CTAP unremarkable for acute GI pathology. Please refer to official radiology report. -Monitor H/H -IV Fluids -Protonix IV twice daily -prbc prn Hgb<7 -Clear liquid diet -Avoid NSAIDs, antiplatelet, or anticoagulants -GI consulted: Plan for EGD Tuesday. Will need GoLYTELY prep Tuesday evening. 2. Symptomatic anemia -Hemoglobin 4.9 on admission. -Trend with serial H/H 3. Type 2 diabetes with hyperglycemia Uses NPH insulin outpatient Accu-Cheks AC at bedtime Basal bolus insulin protocol. 5 units regular insulin with meals/10 units Lantus nightly Correctional insulin ordered 4. Hypertension Resumed home antihypertensives 5. History of COPD As needed albuterol inhaler DVT prophylaxis: SCD GI prophylaxis: Protonix IV twice daily Diet: Diabetic clear liquid Full code - Patient Problems (1) GI bleed Current Visit: Yes Status: Acute (2) Anemia Current Visit: Yes Status: Acute (3) COPD (chronic obstructive pulmonary disease) Current Visit: No Status: Chronic Qualifiers: COPD type: chronic bronchitis (4) HLD (hyperlipidemia) Current Visit: No Status: Chronic Qualifiers: Hyperlipidemia type: mixed hyperlipidemia Qualified Code(s): E78.2 - Mixed hyperlipidemia (5) HTN (hypertension) Current Visit: No Status: Chronic Qualifiers: Hypertension type: essential hypertension Qualified Code(s): I10 - Essential (primary) hypertension (6) IDDM (insulin dependent diabetes mellitus) Current Visit: No Status: Chronic
--- NOTE | 2021-05-01 15:27 | Cat Scan Report ---
CT ABDOMEN AND PELVIS WITHOUT CONTRAST INDICATION / CLINICAL INFORMATION: abd pain, GI bleed.. TECHNIQUE: Axial CT images were obtained through the abdomen and pelvis without IV contrast. All CT scans at this location are performed using CT dose reduction for ALARA by means of automated exposure control. COMPARISON: CTA of the chest from 09/22/2020. FINDINGS: LOWER CHEST: There is cardiomegaly with mild bibasilar interstitial edema and/or atelectasis. Trace r ight pleural effusion. LIVER: No significant abnormality GALLBLADDER/BILIARY TREE: No significant abnormality PANCREAS: No significant abnormality SPLEEN: No significant abnormality ADRENALS: No significant abnormality KIDNEYS / URETER: Incompletely characterized bilateral renal cysts there is no acute abnormality. URINARY BLADDER: No significant abnormality REPRODUCTIVE ORGANS: Brachytherapy seeds in the prostate gland. STOMACH / BOWEL: Stomach is unremarkable. Small bowel and colon demonstrate no evidence of mechanical obstruction or inflammation. The appendix is normal in caliber. LYMPH NODES: No significant adenopathy. VASCULATURE: No significant abnormality. OTHER: No free air, free fluid, or focal fluid collection is identified. SKELETAL SYSTEM: Probable bone island within the right aspect of L4. No acute osseous findings. Moder ate degenerative changes of the spine, greatest in the lower lumbar spine with grade 1 anterolisthesi s of L4 on L5 related to facet arthropathy. IMPRESSION: 1. No acute abnormality of the abdomen or pelvis. No bowel inflammation or obstruction. 2. CHF/volume overload with mild bibasilar interstitial edema and/or atelectasis and trace right pleu ral effusion. 3. Other chronic and incidental findings as above. Signer Name: José Ahumada MD Signed: 05/01/2021 3:22 PM Workstation Name: [id number]
[2021-05-01 15:43] LABS: Hemoglobin 6.1 gm/dl (11.8-15.2)
[2021-05-01] MEDS ORDERED: ALBUTEROL 2.5 MG/3 ML NEBU IH PRN (16:26)
[2021-05-01] MEDS ORDERED: SODIUM CHLORIDE 0.9% 500 ML 500 ML IV SCH (16:37)
[2021-05-01] MEDS: INSULIN LISPRO 100 UNIT/ML SUB-Q SCH ×2 (16:43→17:05)
[2021-05-01 16:45] LABS: Hematocrit 19.7 % (35.5-45.6)
[2021-05-01] MEDS ORDERED: INSULIN LISPRO 100 UNIT/ML SUB-Q SCH (17:30)
[2021-05-01 20:33] VITALS: BP 177/74
[2021-05-01] MEDS ORDERED: INSULIN GLARGINE 100 UNITS/ML SUB-Q SCH (22:00)
[2021-05-01] MEDS ORDERED: NON-FORMULARY EACH (Rosuvastatin (Nf) 10 MG Tablet) PO SCH (22:00)
[2021-05-02] MEDS ORDERED: amLODIPine 10 MG TAB PO SCH (10:00)
[2021-05-02] MEDS ORDERED: TAMSULOSIN 0.4 MG CAP PO SCH (10:00)
[2021-05-02] MEDS ORDERED: hydroCHLOROthiazide 12.5 MG CAP PO SCH (10:00)
[2021-05-02] MEDS ORDERED: LOSARTAN 50 MG TAB PO SCH (10:00)
[2021-05-02] MEDS ORDERED: METOPROLOL TARTRATE 50 MG TAB PO SCH (10:00)
[2021-05-02] MEDS ORDERED: HYDROCHLOROTHIAZIDE PO SCH (10:00)
[2021-05-02] MEDS ORDERED: LEVOTHYROXINE 125 MCG TAB PO SCH (10:00)
[2021-05-02] MEDS ORDERED: [UNRECOGNIZED DRUG - OTHER] PO SCH (10:00)
[2021-05-02] MEDS ORDERED: LOSARTAN PO SCH (10:00)
== END 2021-05-01 20:28 | disposition left against medical advice (07) ==
LOC: ED 07:21 → 4A 10:43
PROVIDERS: ADMIT Internal Medicine; ATTEND Internal Medicine
DX: K92.2 Gastrointestinal hemorrhage, unspecified (principal); D64.9 Anemia, unspecified; E11.65 Type 2 diabetes mellitus with hyperglycemia; I10 Essential (primary) hypertension; J44.9 Chronic obstructive pulmonary disease, unspecified; R53.83 Other fatigue; E78.2 Mixed hyperlipidemia; K21.9 Gastro-esophageal reflux disease without esophagitis; M19.90 Unspecified osteoarthritis, unspecified site; Z85.46 Personal history of malignant neoplasm of prostate; Z79.899 Other long term (current) drug therapy; Z98.890 Other specified postprocedural states; Z79.4 Long term (current) use of insulin; Z79.82 Long term (current) use of aspirin
CPT/HCPCS: 36415; 36430; 74176; 80048; 82271; 82962; 85014; 85018; 85025; 85610; 85730; 86850; 86900; 86901; 86920; 96374; 99284; C9113; G0378; J7040; P9016

== ENCOUNTER 2022-01-13 14:39 | Emergency (ER) | payer MEDICARE ==
[2022-01-13 15:56] LABS: Hemoglobin 6.6 gm/dl (11.8-15.2); Mean Corpuscular HGB Conc 34 % (32-34); Mean Corpuscular Volume 93 fl (84-94); Platelet Count 131 K/mm3 (140-440); Red Blood Count 2.09 M/mm3 (3.65-5.03); Red Cell Distribution Width 16.3 % (13.2-15.2)
[2022-01-13 16:21] LABS: Hematocrit 19.5 % (35.5-45.6)
--- NOTE | 2022-01-13 17:01 | Emergency Department Report ---
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 States he told him he needed to report to the emergency department for blood transfusion. He reports history of blood transfusions in the past. He is accompanied by son who reports that he has been having some blood in his stool. He is not on blood thinners. - Related Data Home Medications Medication Instructions Recorded Confirmed Last Taken Aspirin [Aspirin Enteric Coated] 81 mg PO DAILY 08/11/13 12/13/21 12/08/21 amLODIPine 10 mg PO DAILY 08/11/13 12/13/21 08/03/17 Tamsulosin [Flomax] 0.4 mg PO DAILY 08/14/13 12/13/21 12/08/21 Rosuvastatin (Nf) [Crestor] 10 mg PO QHS 08/04/15 12/13/21 08/03/17 Levocetirizine Dihydrochloride 5 mg PO DAILY 08/04/17 12/13/21 08/03/17 [Xyzal] Levothyroxine [Synthroid] 125 mcg PO QAM 08/04/17 12/13/21 12/08/21 Brimonidine 0.15% 0.15 mg OU TID 12/13/21 12/13/21 12/13/21 10:44 Dorzolamide 2% Eye Drop 0.02 mg OU BID 12/13/21 12/13/21 12/08/21 Latanoprost 0.005% 0.05 mg OU HS 12/13/21 12/13/21 12/08/21 Previous Rx's Medication Instructions Recorded Last Taken Type Albuterol Mdi (or & Nicu Only) 2 puff IH Q4H PRN #1 vial 08/19/13 Unknown Rx [ProAir HFA Inhaler] Montelukast [Singulair] 10 mg PO QHS #30 tablet 08/19/13 08/03/17 Rx Acetaminophen [Acetaminophen TAB] 650 mg PO Q4H PRN tablet 09/29/20 Unknown Rx dexAMETHasone [Dexamethasone] 6 mg PO DAILY #4 tablet 09/29/20 Unknown Rx Metoprolol [Lopressor TAB] 12.5 mg PO BID #60 tablet 12/22/21 Unknown Rx hydrALAZINE [Apresoline TAB] 50 mg PO Q8HR #90 tablet 12/22/21 Unknown Rx Allergies Allergy/AdvReac Type Severity Reaction Status Date / Time amoxicillin Allergy Unknown Verified 08/04/15 12:51 ED Review of Systems ROS: Stated complaint: BLOOD TRANSFUSION Other details as noted in HPI Comment: All other systems reviewed and negative Constitutional: no symptoms reported Respiratory: denies: cough, shortness of breath, wheezing Cardiovascular: denies: chest pain, palpitations Gastrointestinal: denies: abdominal pain, vomiting Musculoskeletal: as per HPI Skin: denies: rash, lesions Neurological: as per HPI Psychiatric: denies: anxiety, depression ED Past Medical Hx - Past Medical History Hx Hypertension: Yes Hx Heart Attack/AMI: No Hx Diabetes: Yes (insulin) Hx GERD: Yes Hx Arthritis: Yes Hx Headaches / Migraines: No Hx COPD: Yes Hx HIV: No Additional medical history: family unsure of hx pt unable to speak, throat cancer and post treatment had difficulty digesting his food this and put on Creon, elevated cholesterol - Surgical History Additional Surgical History: "Prostate surgery" - Social History Smoking Status: Never Smoker Substance Use Type: None - Medications Home Medications: Home Medications Medication Instructions Recorded Confirmed Last Taken Type Aspirin [Aspirin Enteric Coated] 81 mg PO DAILY 08/11/13 12/13/21 12/08/21 History amLODIPine 10 mg PO DAILY 08/11/13 12/13/21 08/03/17 History Tamsulosin [Flomax] 0.4 mg PO DAILY 08/14/13 12/13/21 12/08/21 History Albuterol Mdi (or & Nicu Only) 2 puff IH Q4H PRN #1 vial 08/19/13 12/13/21 Unknown Rx [ProAir HFA Inhaler] Montelukast [Singulair] 10 mg PO QHS #30 tablet 08/19/13 12/13/21 08/03/17 Rx Rosuvastatin (Nf) [Crestor] 10 mg PO QHS 08/04/15 12/13/21 08/03/17 History Levocetirizine Dihydrochloride 5 mg PO DAILY 1212/13/21 08/03/17 History [Xyzal] Levothyroxine [Synthroid] 125 mcg PO QAM 08/04/17 12/13/21 12/08/21 History Acetaminophen [Acetaminophen TAB] 650 mg PO Q4H PRN tablet 09/29/20 12/13/21 Unknown Rx dexAMETHasone [Dexamethasone] 6 mg PO DAILY #4 tablet 09/29/20 12/13/21 Unknown Rx Brimonidine 0.15% 0.15 mg OU TID 12/13/21 12/13/21 12/13/21 10:44 History Dorzolamide 2% Eye Drop 0.02 mg OU BID 12/13/21 12/13/21 12/08/21 History Latanoprost 0.005% 0.05 mg OU HS 12/13/21 12/13/21 12/08/21 History Metoprolol [Lopressor TAB] 12.5 mg PO BID #60 tablet 12/22/21 Unknown Rx hydrALAZINE [Apresoline TAB] 50 mg PO Q8HR #90 tablet 12/22/21 Unknown Rx ED Physical Exam - General Limitations: No Limitations General appearance: alert, in no apparent distress - Head Head exam: Present: atraumatic, normocephalic - Respiratory Respiratory exam: Present: normal lung sounds bilaterally. Absent: respiratory distress - Cardiovascular Cardiovascular Exam: Present: regular rate, normal rhythm. Absent: systolic murmur, diastolic murmur, rubs, gallop - GI/Abdominal GI/Abdominal exam: Present: soft. Absent: distended, tenderness - Rectal Rectal exam: Present: deferred - Neurological Exam Neurological exam: Present: alert, oriented X3, CN II-XII intact - Psychiatric Psychiatric exam: Present: normal affect, normal mood - Skin Skin exam: Present: warm, dry, intact, normal color ED Course Vital Signs 01/13/22 01/13/22 01/13/22 15:24 17:06 17:09 Temperature 99.6 F Pulse Rate 67 61 61 Respiratory 20 26 H 18 Rate Blood Pressure 139/56 179/73 O2 Sat by Pulse 99 100 99 Oximetry 01/13/22 01/13/22 01/13/22 17:15 17:30 17:45 Temperature Pulse Rate 62 61 61 Respiratory 22 22 19 Rate Blood Pressure 179/73 177/71 177/71 O2 Sat by Pulse 100 97 98 Oximetry 01/13/22 01/13/22 01/13/22 18:01 18:15 18:30 Temperature Pulse Rate 61 61 61 Respiratory 16 16 21 Rate Blood Pressure 177/66 168/68 177/69 O2 Sat by Pulse 98 98 96 Oximetry 01/13/22 01/13/22 01/13/22 18:45 19:01 19:15 Temperature Pulse Rate 63 65 63 Respiratory 18 20 16 Rate Blood Pressure 177/69 159/61 157/61 O2 Sat by Pulse 99 98 100 Oximetry 01/13/22 01/13/22 01/13/22 19:30 19:45 20:01 Temperature Pulse Rate 64 64 64 Respiratory 17 20 22 Rate Blood Pressure 163/64 163/64 161/66 O2 Sat by Pulse 97 98 99 Oximetry 01/13/22 01/13/22 01/13/22 20:12 20:15 20:30 Temperature 97.7 F Pulse Rate 64 64 Respiratory 17 25 H Rate Blood Pressure 168/64 164/64 O2 Sat by Pulse 99 94 Oximetry 01/13/22 01/13/22 01/13/22 20:37 20:45 21:01 Temperature 97.8 F Pulse Rate 66 63 Respiratory 19 26 H Rate Blood Pressure 164/64 174/70 O2 Sat by Pulse 92 94 Oximetry 01/13/22 01/13/22 01/13/22 21:15 21:30 21:45 Temperature Pulse Rate 64 63 66 Respiratory 25 H 24 14 Rate Blood Pressure 179/60 181/70 181/70 O2 Sat by Pulse 94 93 96 Oximetry 01/13/22 01/13/22 01/13/22 22:01 22:15 22:31 Temperature Pulse Rate 62 63 64 Respiratory 26 H 27 H 20 Rate Blood Pressure 193/74 186/70 186/69 O2 Sat by Pulse 95 94 95 Oximetry 01/13/22 01/13/22 01/13/22 22:45 22:51 23:01 Temperature 97.5 F L Pulse Rate 66 64 66 Respiratory 28 H 26 H 19 Rate Blood Pressure 186/69 190/67 190/67 O2 Sat by Pulse 95 93 94 Oximetry 01/13/22 01/13/22 01/13/22 23:15 23:31 23:45 Temperature Pulse Rate 68 68 64 Respiratory 26 H 14 22 Rate Blood Pressure 190/67 183/66 183/66 O2 Sat by Pulse 98 100 98 Oximetry 01/14/22 01/14/22 01/14/22 00:01 00:15 00:31 Temperature Pulse Rate 64 61 62 Respiratory 20 19 22 Rate Blood Pressure 181/67 181/67 166/68 O2 Sat by Pulse 98 98 98 Oximetry 01/14/22 01/14/22 01/14/22 00:35 00:45 01:01 Temperature 97.5 F L Pulse Rate 63 63 Respiratory 25 H 23 Rate Blood Pressure 166/68 184/65 O2 Sat by Pulse 99 98 Oximetry ED Medical Decision Making - Lab Data Result diagrams: 01/14/22 01:17 - Medical Decision Making Patient presenting to emergency department after notified by dialysis center that his hemoglobin was low. Hemoglobin here is 6.6. He is still guaiac negati ve. He denies any symptoms. He was transfused 2 units of red blood cells. Repeat hemoglobin 9.4. Vital signs are stable. Will discharge home with return precautions. Critical care attestation.: If time is entered above; I have spent that time in minutes in the direct care of this critically ill patient, excluding procedure time. ED Disposition Clinical Impression: Anemia, COPD (chronic obstructive pulmonary disease), ESRD (end stage renal disease) Disposition: 01 HOME / SELF CARE / HOMELESS Is pt being admited?: No Does the pt Need Aspirin: No Condition: Stable Instructions: Blood Transfusion, Adult, Care After, Chronic Obstructive Pulmonary Disease (ED) Referrals: PRIMARY CARE [Primary Care Provider] - 3-5 Days
[2022-01-13] MEDS ORDERED: SODIUM CHLORIDE 0.9% 500 ML 500 ML IV ONE (17:43)
[2022-01-13 17:54] LABS: INR 0.88 (0.87-1.13)
[2022-01-13 17:55] LABS: Partial Thromboplastin Time 29.3 Sec. (24.2-36.6)
[2022-01-13] MEDS ORDERED: SODIUM CHLORIDE 0.9% 1000 ML 1,000 ML ONE (19:57)
[2022-01-13] MEDS ORDERED: SODIUM CHLORIDE 0.9% 500 ML 500 ML ONE (20:00)
[2022-01-14 01:08] VITALS: BP 184/65
[2022-01-14 01:36] LABS: Basophils % (Auto) 0.6 % (0.0-1.8); Eosinophils # (Auto) 0.2 K/mm3 (0.0-0.4); Eosinophils % (Auto) 2.5 % (0.0-4.3); Hematocrit 26.8 % (35.5-45.6); Hemoglobin 9.4 gm/dl (11.8-15.2); Lymphocytes # (Auto) 1.5 K/mm3 (1.2-5.4); Lymphocytes % (Auto) 18.9 % (13.4-35.0); Mean Corpuscular HGB Conc 35 % (32-34); Mean Corpuscular Volume 91 fl (84-94); Monocytes # (Auto) 0.7 K/mm3 (0.0-0.8); Monocytes % (Auto) 9.3 % (0.0-7.3); Platelet Count 129 K/mm3 (140-440); Red Blood Count 2.95 M/mm3 (3.65-5.03); Red Cell Distribution Width 15.7 % (13.2-15.2)
--- NOTE | 2022-01-15 10:17 | Electrocardiograph Report ---
[facility] Test Date: 2022-01-13 Test Time: 16:59:59 Pat Name: JANA HOLT Department: Room: Gender: M Sod Stripper: 000 : 1940 Requested By: RODNEY AYOUB Order Number: [id number] Reading MD: Trung Pride Measurements Intervals [place] Rate: 62 P: 34 SC: 176 QRS: -33 QRSD: 97 T: 94 QT: 469 QTc: 476 Interpretive Statements Sinus rhythm POSSIBLE Anterior infarct, old LAD Nonspecific T abnormalities, lateral leads Compared to ECG 12/19/2021 09:27:14 No significant changes Electronically Signed On 01-15-2022 10:16:48 EDT by Trung Pride
== END 2022-01-14 02:20 | disposition home or self-care (01) ==
LOC: ED 14:39
DX: D64.9 Anemia, unspecified (principal); J44.9 Chronic obstructive pulmonary disease, unspecified; I13.2 Hypertensive heart and chronic kidney disease with heart failure and with stage 5 chronic kidney disease, or end stage renal disease; E11.22 Type 2 diabetes mellitus with diabetic chronic kidney disease; N18.6 End stage renal disease; I50.9 Heart failure, unspecified; Z99.2 Dependence on renal dialysis; K21.9 Gastro-esophageal reflux disease without esophagitis; M19.90 Unspecified osteoarthritis, unspecified site; Z98.890 Other specified postprocedural states; Z88.0 Allergy status to penicillin
CPT/HCPCS: 36415; 36430; 82270; 85025; 85027; 85610; 85730; 86850; 86900; 86901; 86920; 93005; 99283; J7030; J7040; P9016

== ENCOUNTER 2022-02-06 10:08 | Inpatient (IN) | payer MEDICARE ==
[2022-02-06 10:55] LABS: Basophils % (Auto) 0.6 % (0.0-1.8); Eosinophils # (Auto) 0.1 K/mm3 (0.0-0.4); Eosinophils % (Auto) 1.8 % (0.0-4.3); Lymphocytes % (Auto) 15.3 % (13.4-35.0); Mean Corpuscular HGB Conc 34 % (32-34); Mean Corpuscular Volume 95 fl (84-94); Monocytes # (Auto) 0.6 K/mm3 (0.0-0.8); Monocytes % (Auto) 8.4 % (0.0-7.3); Platelet Count 111 K/mm3 (140-440); Red Blood Count 1.77 M/mm3 (3.65-5.03); Red Cell Distribution Width 16.1 % (13.2-15.2)
[2022-02-06 11:06] LABS: INR 0.89 (0.87-1.13)
[2022-02-06 11:07] LABS: Partial Thromboplastin Time 30.1 Sec. (24.2-36.6)
[2022-02-06 11:20] LABS: Albumin 2.4 g/dL (3.9-5); Calcium 7.5 mg/dL (8.4-10.2)
[2022-02-06 11:30] LABS: Hematocrit 16.9 % (35.5-45.6); Hemoglobin 5.8 gm/dl (11.8-15.2)
[2022-02-06] MEDS ORDERED: SODIUM CHLORIDE 0.9% 500 ML 500 ML IV ONE (14:05)
--- NOTE | 2022-02-06 14:26 | Emergency Department Report ---
ED General Adult HPI - General Chief complaint: Weakness Stated complaint: LOW BLOOD Time Seen by Provider: 02/06/22 13:53 Source: patient Mode of arrival: Ambulatory Limitations: No Limitations - History of Present Illness Initial comments: Patient presents with weakness that has been going on today patient states that he went to dialysis and his blood level was too low. is his cigarette examiner patient states that he feels a little weak however he is not having any acute pain no shortness of breath no GI bleeds. History obtained by patient's son they state that this is happened to him before. Patient has no fevers and no chills Severity scale (0 -10): 3 - Related Data Home Medications Medication Instructions Recorded Confirmed Last Taken Aspirin [Aspirin Enteric Coated] 81 mg PO DAILY 08/11/13 12/13/21 12/08/21 amLODIPine 10 mg PO DAILY 08/11/13 12/13/21 08/03/17 Tamsulosin [Flomax] 0.4 mg PO DAILY 08/14/13 12/13/21 12/08/21 Rosuvastatin (Nf) [Crestor] 10 mg PO QHS 08/04/15 12/13/21 08/03/17 Levocetirizine Dihydrochloride 5 mg PO DAILY 08/04/17 12/13/21 08/03/17 [Xyzal] Levothyroxine [Synthroid] 125 mcg PO QAM 08/04/17 12/13/21 12/08/21 Brimonidine 0.15% 0.15 mg OU TID 12/13/21 12/13/21 12/13/21 10:44 Dorzolamide 2% Eye Drop 0.02 mg OU BID 12/13/21 12/13/21 12/08/21 Latanoprost 0.005% 0.05 mg OU HS 12/13/21 12/13/21 12/08/21 Previous Rx's Medication Instructions Recorded Last Taken Type Albuterol Mdi (or & Nicu Only) 2 puff IH Q4H PRN #1 vial 08/19/13 Unknown Rx [ProAir HFA Inhaler] Montelukast [Singulair] 10 mg PO QHS #30 tablet 08/19/13 08/03/17 Rx Acetaminophen [Acetaminophen TAB] 650 mg PO Q4H PRN tablet 09/29/20 Unknown Rx dexAMETHasone [Dexamethasone] 6 mg PO DAILY #4 tablet 09/29/20 Unknown Rx Metoprolol [Lopressor TAB] 12.5 mg PO BID #60 tablet 12/22/21 Unknown Rx hydrALAZINE [Apresoline TAB] 50 mg PO Q8HR #90 tablet 12/22/21 Unknown Rx Allergies Allergy/AdvReac Type Severity Reaction Status Date / Time amoxicillin Allergy Unknown Verified 02/06/22 14:57 ED Review of Systems ROS: Stated complaint: LOW BLOOD Other details as noted in HPI Constitutional: denies: chills, fever Eyes: denies: eye pain, eye discharge, vision change ENT: denies: ear pain, throat pain Respiratory: denies: cough, shortness of breath, wheezing Cardiovascular: denies: chest pain, palpitations Endocrine: no symptoms reported Gastrointestinal: denies: abdominal pain, nausea, diarrhea Genitourinary: denies: urgency, dysuria Musculoskeletal: denies: back pain, joint swelling, arthralgia Skin: denies: rash, lesions Neurological: weakness. denies: headache, paresthesias Psychiatric: denies: anxiety, depression Hematological/Lymphatic: denies: easy bleeding, easy bruising ED Past Medical Hx - Past Medical History Previous Medical History?: Yes Hx Hypertension: Yes Hx Heart Attack/AMI: No Hx Diabetes: Yes (insulin) Hx GERD: Yes Hx of Cancer: Yes Hx Arthritis: Yes Hx Headaches / Migraines: No Hx COPD: Yes Hx HIV: No Additional medical history: family unsure of hx pt unable to speak, throat cancer and post treatment had difficulty digesting his food this and put on Creon, elevated cholesterol - Surgical History Past Surgical History?: Yes Additional Surgical History: "Prostate surgery" - Social History Smoking Status: Never Smoker Substance Use Type: None - Medications Home Medications: Home Medications Medication Instructions Recorded Confirmed Last Taken Type Aspirin [Aspirin Enteric Coated] 81 mg PO DAILY 08/11/13 12/13/21 12/08/21 History amLODIPine 10 mg PO DAILY 08/11/13 12/13/21 08/03/17 History Tamsulosin [Flomax] 0.4 mg PO DAILY 08/14/13 12/13/21 12/08/21 History Albuterol Mdi (or & Nicu Only) 2 puff IH Q4H PRN #1 vial 08/19/13 12/13/21 Unknown Rx [ProAir HFA Inhaler] Montelukast [Singulair] 10 mg PO QHS #30 tablet 08/19/13 12/13/21 08/03/17 Rx Rosuvastatin (Nf) [Crestor] 10 mg PO QHS 08/04/15 12/13/21 08/03/17 History Levocetirizine Dihydrochloride 5 mg PO DAILY 08/04/17 12/13/21 08/03/17 History [Xyzal] Levothyroxine [Synthroid] 125 mcg PO QAM 08/04/17 12/13/21 12/08/21 History Acetaminophen [Acetaminophen TAB] 650 mg PO Q4H PRN tablet 09/29/20 12/13/21 Unknown Rx dexAMETHasone [Dexamethasone] 6 mg PO DAILY #4 tablet 09/29/20 12/13/21 Unknown Rx Brimonidine 0.15% 0.15 mg OU TID 12/13/21 12/13/21 12/13/21 10:44 History Dorzolamide 2% Eye Drop 0.02 mg OU BID 12/13/21 12/13/21 12/08/21 History Latanoprost 0.005% 0.05 mg OU HS 12/13/21 12/13/21 12/08/21 History Metoprolol [Lopressor TAB] 12.5 mg PO BID #60 tablet 12/22/21 Unknown Rx hydrALAZINE [Apresoline TAB] 50 mg PO Q8HR #90 tablet 12/22/21 Unknown Rx ED Physical Exam - General Limitations: No Limitations General appearance: alert, in no apparent distress - Head Head exam: Present: atraumatic, normocephalic - Eye Eye exam: Present: normal appearance - ENT ENT exam: Present: mucous membranes moist - Neck Neck exam: Present: normal inspection - Respiratory Respiratory exam: Present: normal lung sounds bilaterally. Absent: respiratory distress - Cardiovascular Cardiovascular Exam: Present: regular rate, normal rhythm. Absent: systolic murmur, diastolic murmur, rubs, gallop - GI/Abdominal GI/Abdominal exam: Present: soft, normal bowel sounds - Rectal Rectal exam: Present: deferred - Extremities Exam Extremities exam: Present: normal inspection - Back Exam Back exam: Present: normal inspection - Neurological Exam Neurological exam: Present: alert, oriented X3 - Psychiatric Psychiatric exam: Present: normal affect, normal mood - Skin Skin exam: Present: warm, dry, intact, normal color. Absent: rash ED Course Vital Signs 02/06/22 02/06/22 02/06/22 10:13 12:13 12:15 Temperature 98.6 F Pulse Rate 66 76 68 Respiratory 18 27 H 18 Rate Blood Pressure 173/62 Blood Pressure 174/58 [Right] O2 Sat by Pulse 98 98 Oximetry 02/06/22 02/06/22 02/06/22 12:31 12:45 13:01 Temperature Pulse Rate 68 69 68 Respiratory 26 H 17 19 Rate Blood Pressure 173/62 173/62 162/57 Blood Pressure [Right] O2 Sat by Pulse 100 100 100 Oximetry 02/06/22 02/06/22 02/06/22 13:15 13:31 13:45 Temperature Pulse Rate 61 60 59 L Respiratory 19 18 19 Rate Blood Pressure 162/57 162/57 162/57 Blood Pressure [Right] O2 Sat by Pulse 100 100 100 Oximetry 02/06/22 02/06/22 02/06/22 14:01 14:15 14:31 Temperature Pulse Rate 61 88 87 Respiratory 20 13 24 Rate Blood Pressure 169/63 162/57 162/57 Blood Pressure [Right] O2 Sat by Pulse 100 99 99 Oximetry 02/06/22 14:45 Temperature Pulse Rate 88 Respiratory 13 Rate Blood Pressure 162/57 Blood Pressure [Right] O2 Sat by Pulse 99 Oximetry ED Medical Decision Making - Lab Data Result diagrams: 02/06/22 10:35 02/06/22 10:35 Lab Results 02/06/22 02/06/22 02/06/22 Range/Units 10:35 10:35 10:35 WBC 6.6 (4.5-11.0) K/mm3 RBC 1.77 L (3.65-5.03) M/mm3 Hgb 5.8 L* (11.8-15.2) gm/dl Hct 16.9 L* (35.5-45.6) % MCV 95 H (84-94) fl MCH 33 H (28-32) pg MCHC 34 (32-34) % RDW 16.1 H (13.2-15.2) % Plt Count 111 L (140-440) K/mm3 Lymph % (Auto) 15.3 (13.4-35.0) % [place] % (Auto) 8.4 H (0.0-7.3) % Eos % (Auto) 1.8 (0.0-4.3) % Baso % (Auto) 0.6 (0.0-1.8) % Lymph # (Auto) 1.0 L (1.2-5.4) K/mm3 [place] # (Auto) 0.6 (0.0-0.8) K/mm3 Eos # (Auto) 0.1 (0.0-0.4) K/mm3 Baso # (Auto) 0.0 (0.0-0.1) K/mm3 Seg Neutrophils % 73.9 H (40.0-70.0) % Seg Neutrophils # 4.9 (1.8-7.7) K/mm3 PT 13.0 (12.2-14.9) Sec. INR 0.89 (0.87-1.13) APTT 30.1 (24.2-36.6) Sec. Sodium 137 (137-145) mmol/L Potassium 3.6 (3.6-5.0) mmol/L Chloride 103.5 (98-107) mmol/L Carbon Dioxide 24 (22-30) mmol/L Anion Gap 13 mmol/L BUN 37 H (9-20) mg/dL Creatinine 4.8 H (0.8-1.3) mg/dL Estimated GFR 12 ml/min BUN/Creatinine Ratio 8 % Glucose 208 H (75-100) mg/dL Calcium 7.5 L (8.4-10.2) mg/dL Total Bilirubin 0.20 (0.1-1.2) mg/dL AST 18 (5-40) units/L ALT 16 (7-56) units/L Alkaline Phosphatase 75 (35-129) units/L Total Protein 5.5 L (6.3-8.2) g/dL Albumin 2.4 L (3.9-5) g/dL Albumin/Globulin Ratio 0.8 % Blood Type Antibody Screen Crossmatch 02/06/22 Range/Units 10:35 WBC (4.5-11.0) K/mm3 RBC (3.65-5.03) M/mm3 Hgb (11.8-15.2) gm/dl Hct (35.5-45.6) % MCV (84-94) fl MCH (28-32) pg MCHC (32-34) % RDW (13.2-15.2) % Plt Count (140-440) K/mm3 Lymph % (Auto) (13.4-35.0) % [place] % (Auto) (0.0-7.3) % Eos % (Auto) (0.0-4.3) % Baso % (Auto) (0.0-1.8) % Lymph # (Auto) (1.2-5.4) K/mm3 [place] # (Auto) (0.0-0.8) K/mm3 Eos # (Auto) (0.0-0.4) K/mm3 Baso # (Auto) (0.0-0.1) K/mm3 Seg Neutrophils % (40.0-70.0) % Seg Neutrophils # (1.8-7.7) K/mm3 PT (12.2-14.9) Sec. INR (0.87-1.13) APTT (24.2-36.6) Sec. Sodium (137-145) mmol/L Potassium (3.6-5.0) mmol/L Chloride (98-107) mmol/L Carbon Dioxide (22-30) mmol/L Anion Gap mmol/L BUN (9-20) mg/dL Creatinine (0.8-1.3) mg/dL Estimated GFR ml/min BUN/Creatinine Ratio % Glucose (75-100) mg/dL Calcium (8.4-10.2) mg/dL Total Bilirubin (0.1-1.2) mg/dL AST (5-40) units/L ALT (7-56) units/L Alkaline Phosphatase (35-129) units/L Total Protein (6.3-8.2) g/dL Albumin (3.9-5) g/dL Albumin/Globulin Ratio % Blood Type B POSITIVE Antibody Screen Negative Crossmatch See Detail - Medical Decision Making Chief medical diagnosis: Severe anemia Differential medical diagnosis: End-stage renal disease, low hemoglobin secondary to kidney failure I will get type and screen I will transfuse patient 2 units of blood I will consult Dr. Lorenzo cigarette examiner and I will admit patient to the hospital under Dr. Avalos Critical care attestation.: If time is entered above; I have spent that time in minutes in the direct care of this critically ill patient, excluding procedure time. ED Disposition Clinical Impression: Severe anemia Type 2 diabetes mellitus with diabetic chronic kidney disease Qualifiers: Diabetes mellitus detention insulin use: unspecified medical terminologist insulin use status Chronic kidney disease stage: stage 5, not on chronic dialysis Qualified Code(s): E11.22 - Type 2 diabetes mellitus with diabetic chronic kidney disease; N18.5 - Chronic kidney disease, stage 5 Disposition: 09 ADMITTED INPATIENT Is pt being admited?: Yes Does the pt Need Aspirin: No Condition: Stable Instructions: Diabetes Mellitus Type 2 in Adults (ED)
[2022-02-06] MEDS ORDERED: ALBUTEROL 8.5 GM MDI INHALATION IH PRN (16:22)
[2022-02-06] MEDS ORDERED: ACETAMINOPHEN 325 MG TAB PO PRN ×2 (16:22→16:25)
[2022-02-06] MEDS ORDERED: HYDROmorphone 0.5 MG/0.5 ML INJ IV PRN (16:25)
[2022-02-06] MEDS ORDERED: oxyCODONE /ACETAMINOPHEN 5-325MG TAB PO PRN (16:25)
[2022-02-06] MEDS ORDERED: ONDANSETRON 4 MG/2 ML INJ IV PRN (16:25)
[2022-02-06] MEDS ORDERED: MORPHINE 2 MG/1 ML INJ IV PRN (16:25)
[2022-02-06] MEDS ORDERED: METOCLOPRAMIDE 10 MG/2 ML INJ IV PRN (16:25)
[2022-02-06] MEDS ORDERED: SODIUM CHLORIDE 0.9% 100 ML IV PRN (16:32)
[2022-02-06 17:51] LABS: Hepatitis B Surface Antigen Reactive (Negative)
[2022-02-06] MEDS: ASPIRIN EC 81 MG TAB PO SCH (18:10)
[2022-02-06] MEDS: hydrALAZINE 25 MG TAB PO SCH (18:10)
[2022-02-06] MEDS: amLODIPine 10 MG TAB PO SCH (18:10)
[2022-02-06] MEDS: TAMSULOSIN 0.4 MG CAP PO SCH (18:10)
[2022-02-06 18:55] LABS: Hepatitis C Virus Antibody Non-Reactive (NonReactive)
[2022-02-06] MEDS ORDERED: BRIMONIDINE 0.15% OPHTH SOLN OU SCH (20:00)
[2022-02-06] MEDS: METOPROLOL TARTRATE 25 MG TAB PO SCH (22:00)
[2022-02-06] MEDS: HEPARIN 5,000 UNIT/1 ML VIAL SUB-Q SCH (22:00)
[2022-02-06] MEDS ORDERED: EYE OU SCH (22:00)
[2022-02-06] MEDS ORDERED: MONTELUKAST 10 MG TAB PO SCH (22:00)
[2022-02-06] MEDS ORDERED: NON-FORMULARY EACH (Rosuvastatin (Nf) 10 MG Tablet) PO SCH (22:00)
[2022-02-06] MEDS ORDERED: DORZOLAMIDE 2% OU SCH (22:00)
[2022-02-06] MEDS ORDERED: LATANOPROST 0.005% OPHTH SOLN 2.5 ML OU SCH (22:00)
[2022-02-06] MEDS ORDERED: guaiFENesin DM 200/20 MG ORAL LIQD 10 ML PO PRN (22:33)
[2022-02-06] MEDS: ALBUTEROL 2.5 MG/3 ML NEBU IH PRN (23:11)
[2022-02-07] MEDS ORDERED: hydrALAZINE 20 MG/1 ML INJ IV ONE (05:35)
[2022-02-07] MEDS: hydrALAZINE 25 MG TAB PO SCH (05:38)
[2022-02-07 06:29] LABS: Basophils # (Auto) 0.1 K/mm3 (0.0-0.1); Basophils % (Auto) 0.7 % (0.0-1.8); Eosinophils # (Auto) 0.2 K/mm3 (0.0-0.4); Eosinophils % (Auto) 1.9 % (0.0-4.3); Hematocrit 27.2 % (35.5-45.6); Hemoglobin 9.3 gm/dl (11.8-15.2); Lymphocytes # (Auto) 1.2 K/mm3 (1.2-5.4); Lymphocytes % (Auto) 15.1 % (13.4-35.0); Mean Corpuscular HGB Conc 34 % (32-34); Mean Corpuscular Volume 89 fl (84-94); Monocytes # (Auto) 0.6 K/mm3 (0.0-0.8); Monocytes % (Auto) 7.6 % (0.0-7.3); Platelet Count 103 K/mm3 (140-440); Red Blood Count 3.04 M/mm3 (3.65-5.03); Red Cell Distribution Width 18.2 % (13.2-15.2)
--- NOTE | 2022-02-07 06:43 | History and Physical Report ---
History of Present Illness Date of examination: 02/06/22 Date of admission: 02/06/22 16:25 Chief complaint: Low hemoglobin level History of present illness: 81-year-old -[place] male with history of end-stage renal disease, hypertension, BPH, hyperlipidemia and glaucoma sent from dialysis center because of low hemoglobin level of 6.0. Patient is alert and oriented. No shortness of breath. No melanotic stools. Son at bedside. No change in his condition. - Past Medical History --Previous Medical History?: Yes --Hypertension: Yes --Diabetes: Yes (insulin) --GERD: Yes --Cancer: Yes --Arthritis: Yes --COPD: Yes --Additional medical history: family unsure of hx pt unable to speak, throat cancer and post treatment had difficulty digesting his food this and put on -------Creon, elevated cholesterol - Surgical History --Past Surgical History?: Yes --Additional Surgical History: "Prostate surgery" - Social History family history --Smoking Status: Never Smoker --Substance Use Type: None - Medications Home Medications: Home Medications Medication Instructions Recorded Confirmed Last Taken Type Aspirin [Aspirin Enteric Coated] 81 mg PO DAILY 08/11/13 12/13/21 12/08/21 History amLODIPine 10 mg PO DAILY 08/11/13 12/13/21 08/03/17 History Tamsulosin [Flomax] 0.4 mg PO DAILY 08/14/13 12/13/21 12/08/21 History Albuterol Mdi (or & Nicu Only) 2 puff IH Q4H PRN #1 vial 08/19/13 12/13/21 Unknown Rx [ProAir HFA Inhaler] Montelukast [Singulair] 10 mg PO QHS #30 tablet 08/19/13 12/13/21 08/03/17 Rx Rosuvastatin (Nf) [Crestor] 10 mg PO QHS 08/04/15 12/13/21 08/03/17 History Levocetirizine Dihydrochloride 5 mg PO DAILY 08/04/17 12/13/21 08/03/17 History [Xyzal] Levothyroxine [Synthroid] 125 mcg PO QAM 08/04/17 12/13/21 12/08/21 History Acetaminophen [Acetaminophen TAB] 650 mg PO Q4H PRN tablet 09/29/20 12/13/21 Unknown Rx dexAMETHasone [Dexamethasone] 6 mg PO DAILY #4 tablet 09/29/20 12/13/21 Unknown Rx Brimonidine 0.15% 0.15 mg OU TID 12/13/21 12/13/21 12/13/21 10:44 History Dorzolamide 2% Eye Drop 0.02 mg OU BID 12/13/21 12/13/21 12/08/21 History Latanoprost 0.005% 0.05 mg OU HS 12/13/21 12/13/21 12/08/21 History Metoprolol [Lopressor TAB] 12.5 mg PO BID #60 tablet 12/22/21 Unknown Rx hydrALAZINE [Apresoline TAB] 50 mg PO Q8HR #90 tablet 12/22/21 Unknown Rx Review of Systems ROS: Stated complaint: LOW BLOOD Other details as noted in HPI Constitutional: denies: chills, fever Eyes: denies: eye pain, eye discharge, vision change ENT: denies: ear pain, throat pain Respiratory: denies: cough, shortness of breath, wheezing Cardiovascular: denies: chest pain, palpitations Endocrine: no symptoms reported Gastrointestinal: denies: abdominal pain, nausea, diarrhea Genitourinary: denies: urgency, dysuria Musculoskeletal: denies: back pain, joint swelling, arthralgia Skin: denies: rash, lesions Neurological: weakness. denies: headache, paresthesias Psychiatric: denies: anxiety, depression Hematological/Lymphatic: denies: easy bleeding, easy bruising Medications and Allergies Allergies Allergy/AdvReac Type Severity Reaction Status Date / Time amoxicillin Allergy Unknown Verified 02/06/22 16:34 Home Medications Medication Instructions Recorded Confirmed Last Taken Type Aspirin [Aspirin Enteric Coated] 81 mg PO DAILY 08/11/13 12/13/21 12/08/21 History amLODIPine 5 mg PO DAILY 08/11/13 12/13/21 1 Day Ago History ~02/06/22 Tamsulosin [Flomax] 0.4 mg PO DAILY 08/14/13 12/13/21 1 Day Ago History ~02/06/22 Albuterol Mdi (or & Nicu Only) 2 puff IH Q4H PRN #1 vial 08/19/13 12/13/21 Unknown Rx [ProAir HFA Inhaler] Montelukast [Singulair] 10 mg PO QHS #30 tablet 08/19/13 12/13/21 1 Day Ago Rx ~02/06/22 Rosuvastatin (Nf) [Crestor] 10 mg PO QHS 08/04/15 12/13/21 08/03/17 History Levocetirizine Dihydrochloride 5 mg PO DAILY 08/04/17 12/13/21 08/03/17 History [Xyzal] Levothyroxine [Synthroid] 100 mcg PO QAM 08/04/17 12/13/21 1 Day Ago History ~02/06/22 Acetaminophen [Acetaminophen TAB] 650 mg PO Q4H PRN tablet 09/29/20 12/13/21 Unknown Rx dexAMETHasone [Dexamethasone] 6 mg PO DAILY #4 tablet 09/29/20 12/13/21 Unknown Rx Brimonidine 0.15% 0.15 mg OU TID 12/13/21 12/13/21 1 Day Ago History ~02/06/22 Dorzolamide 2% Eye Drop 0.02 mg OU BID 12/13/21 12/13/21 1 Day Ago History ~02/06/22 Latanoprost 0.005% 0.05 mg OU HS 12/13/21 12/13/21 1 Day Ago History ~02/06/22 Metoprolol [Lopressor TAB] 12.5 mg PO BID #60 tablet 12/22/21 Unknown Rx hydrALAZINE [Apresoline TAB] 50 mg PO Q8HR #90 tablet 12/22/21 Unknown Rx Atropine 1% Ophth Soln BID 02/07/22 1 Day Ago History ~02/06/22 Metoprolol [Lopressor] 25 mg PO 02/07/22 1 Day Ago History ~02/06/22 Moxifloxacin 0.5% QID 02/07/22 1 Day Ago History ~02/06/22 Prednisolone Acet 1% Eye Drop QID 02/07/22 1 Day Ago History ~02/06/22 Rhopressa DAILY 02/07/22 1 Day Ago History ~02/06/22 Active Meds: Active Medications Acetaminophen (Acetaminophen 325 Mg Tab) 650 mg PO Q4H PRN PRN Reason: Pain MILD(1-3)/Fever >100.5/PALMER Albuterol (Albuterol 2.5 Mg/3 Ml Nebu) 2.5 mg IH Q4H PRN PRN Reason: Shortness Of Breath Last Admin: 02/06/22 23:11 Dose: 2.5 mg Amlodipine Besylate (Amlodipine 10 Mg Tab) 10 mg PO DAILY [facility] Last Admin: 02/06/22 18:10 Dose: 10 mg Aspirin (Aspirin Ec 81 Mg Tab) 81 mg PO DAILY [facility] Last Admin: 02/06/22 18:10 Dose: 81 mg Atorvastatin Calcium (Atorvastatin 20 Mg Tab) 20 mg PO QHS [facility] Last Admin: 02/06/22 22:00 Dose: Not Given Atropine Sulfate (Atropine 1% Ophth Soln 2 Ml) 1 drops OD BID [facility] Dorzolamide/Timolol (Dorzolamide/Timolol(Nf) Ophth Drop 2-0.5% 10 Ml) 1 drops OU BID [facility] Guaifenesin (Guaifenesin Dm 200/20 Mg Oral Liqd 10 Ml) 10 ml PO Q6HR PRN PRN Reason: Cough Last Admin: 02/06/22 22:43 Dose: 10 ml Heparin Sodium (Porcine) (Heparin 5,000 Unit/1 Ml Vial) 5,000 unit SUB-Q Q12HR [facility] Last Admin: 02/06/22 22:00 Dose: Not Given Hydralazine HCl (Hydralazine 25 Mg Tab) 50 mg PO Q8HR [facility] Last Admin: 02/07/22 05:38 Dose: 50 mg Hydromorphone HCl (Hydromorphone 0.5 Mg/0.5 Ml Inj) 0.5 mg IV Q3H PRN PRN Reason: Pain , Severe (7-10) Sodium Chloride (Nacl 0.9%) 100 mls @ 999 mls/hr IV MARK PRN PRN Reason: Hypotension Latanoprost (Latanoprost 0.005% Ophth Soln 2.5 Ml) 1 drops OU HS [place]OLASA Levothyroxine Sodium (Levothyroxine 125 Mcg Tab) 125 mcg PO QAM [facility] Metoclopramide HCl (Metoclopramide 10 Mg/2 Ml Inj) 10 mg IV Q6H PRN PRN Reason: Nausea And Vomiting Metoprolol Tartrate (Metoprolol Tartrate 25 Mg Tab) 12.5 mg PO BID [facility] Last Admin: 02/06/22 22:00 Dose: Not Given Miscellaneous Medication (Rhopressa 0.02% Oph Soln) 1 drop OP QHS [facility] Miscellaneous Medication (Brimonidine 0.2% Ophthalmic Soln) 1 drop OP TID [facility] Montelukast Sodium (Montelukast 10 Mg Tab) 10 mg PO QHS [facility] Last Admin: 02/06/22 22:00 Dose: Not Given Morphine Sulfate (Morphine 2 Mg/1 Ml Inj) 2 mg IV Q4H PRN PRN Reason: Pain, Moderate (4-6) Moxifloxacin HCl (Moxifloxacin 0.5% Ophth Soln 3ml) 1 drops OD QID [facility] Ondansetron HCl (Ondansetron 4 Mg/2 Ml Inj) 4 mg IV Q8H PRN PRN Reason: Nausea And Vomiting Oxycodone/Acetaminophen (Oxycodone /Acetaminophen 5-325mg Tab) 1 tab PO Q6H PRN PRN Reason: Pain, Moderate (4-6) Prednisolone Acetate (Prednisolone Acetate 1% Ophth Susp 5 Ml) 1 drops OD QID [facility] Sodium Chloride (Sodium Chloride 0.9% 10 Ml Flush Syringe) 10 ml IV BID [facility] Last Admin: 02/06/22 22:00 Dose: Not Given Sodium Chloride (Sodium Chloride 0.9% 10 Ml Flush Syringe) 10 ml IV PRN PRN PRN Reason: LINE FLUSH Tamsulosin HCl (Tamsulosin 0.4 Mg Cap) 0.4 mg PO DAILY [facility] Last Admin: 02/06/22 18:10 Dose: 0.4 mg Exam - Constitutional Vitals: Temp Pulse Resp BP Pulse Ox 97.7 F 76 20 175/73 97 02/07/22 05:21 02/07/22 05:21 02/07/22 05:21 02/07/22 05:21 02/07/22 05:21 General appearance: Present: no acute distress, well-nourished - EENT Eyes: Present: PERRL ENT: hearing intact, clear oral mucosa - Neck Neck: Present: supple, normal ROM - Respiratory Respiratory effort: normal Respiratory: bilateral: CTA - Cardiovascular Heart rate: 78 Rhythm: regular Heart Sounds: Present: S1 & S2. Absent: rub, click - Extremities Extremities: pulses symmetrical, No edema Peripheral Pulses: within normal limits - Abdominal General gastrointestinal: Present: soft, non-tender, non-distended, normal bowel sounds Male genitourinary: Present: normal - Integumentary Integumentary: Present: clear, warm, dry - Musculoskeletal Musculoskeletal: gait normal, strength equal bilaterally - Psychiatric Psychiatric: appropriate mood/affect, intact judgment & insight - Neurologic Neurologic: CNII-XII intact, moves all extremities Results - Labs CBC & Chem 7: 02/07/22 06:05 02/06/22 10:35 Labs: Laboratory Last Values WBC 8.0 K/mm3 (4.5-11.0) 02/07/22 06:05 RBC 3.04 M/mm3 (3.65-5.03) L 02/07/22 06:05 Hgb 9.3 gm/dl (11.8-15.2) L D 02/07/22 06:05 Hct 27.2 % (35.5-45.6) L D 02/07/22 06:05 MCV 89 fl (84-94) 02/07/22 06:05 MCH 31 pg (28-32) 02/07/22 06:05 MCHC 34 % (32-34) 02/07/22 06:05 RDW 18.2 % (13.2-15.2) H 02/07/22 06:05 Plt Count 103 K/mm3 (140-440) L 02/07/22 06:05 Lymph % (Auto) 15.1 % (13.4-35.0) 02/07/22 06:05 [place] % (Auto) 7.6 % (0.0-7.3) H 02/07/22 06:05 Eos % (Auto) 1.9 % (0.0-4.3) 02/07/22 06:05 Baso % (Auto) 0.7 % (0.0-1.8) 02/07/22 06:05 Lymph # (Auto) 1.2 K/mm3 (1.2-5.4) 02/07/22 06:05 [place] # (Auto) 0.6 K/mm3 (0.0-0.8) 02/07/22 06:05 Eos # (Auto) 0.2 K/mm3 (0.0-0.4) 02/07/22 06:05 Baso # (Auto) 0.1 K/mm3 (0.0-0.1) 02/07/22 06:05 Seg Neutrophils % 74.7 % (40.0-70.0) H 02/07/22 06:05 Seg Neutrophils # 6.0 K/mm3 (1.8-7.7) 02/07/22 06:05 PT 13.0 Sec. (12.2-14.9) 02/06/22 10:35 INR 0.89 (0.87-1.13) 02/06/22 10:35 APTT 30.1 Sec. (24.2-36.6) 02/06/22 10:35 Sodium 137 mmol/L (137-145) 02/06/22 10:35 Potassium 3.6 mmol/L (3.6-5.0) 02/06/22 10:35 Chloride 103.5 mmol/L (98-107) 02/06/22 10:35 Carbon Dioxide 24 mmol/L (22-30) 02/06/22 10:35 Anion Gap 13 mmol/L 02/06/22 10:35 BUN 37 mg/dL (9-20) H 02/06/22 10:35 Creatinine 4.8 mg/dL (0.8-1.3) H 02/06/22 10:35 Estimated GFR 12 ml/min 02/06/22 10:35 BUN/Creatinine Ratio 8 % 02/06/22 10:35 Glucose 208 mg/dL (75-100) H 02/06/22 10:35 Calcium 7.5 mg/dL (8.4-10.2) L 02/06/22 10:35 Total Bilirubin 0.20 mg/dL (0.1-1.2) 02/06/22 10:35 AST 18 units/L (5-40) 02/06/22 10:35 ALT 16 units/L (7-56) 02/06/22 10:35 Alkaline Phosphatase 75 units/L (35-129) 02/06/22 10:35 Total Protein 5.5 g/dL (6.3-8.2) L 02/06/22 10:35 Albumin 2.4 g/dL (3.9-5) L 02/06/22 10:35 Albumin/Globulin Ratio 0.8 % 02/06/22 10:35 Hepatitis A IgM Ab Non-reactive (NonReactive) 02/06/22 17:01 Hep Bs Antigen Reactive (Negative) 02/06/22 17:01 Hep B Core IgM Ab Non-reactive (NonReactive) 02/06/22 17:01 Hepatitis C Antibody Non-reactive (NonReactive) 02/06/22 17:01 Blood Type B POSITIVE 02/06/22 10:35 Antibody Screen Negative 02/06/22 10:35 Crossmatch See Detail 02/06/22 10:35 Short CBC 02/06/22 02/07/22 Range/Units 10:35 06:05 WBC 6.6 8.0 (4.5-11.0) K/mm3 Hgb 5.8 L* 9.3 L D (11.8-15.2) gm/dl Hct 16.9 L* 27.2 L D (35.5-45.6) % Plt Count 111 L 103 L (140-440) K/mm3 BMP 02/06/22 10:35 Sodium 137 Potassium 3.6 Chloride 103.5 Carbon Dioxide 24 BUN 37 H Creatinine 4.8 H Glucose 208 H Calcium 7.5 L Liver Function 02/06/22 Range/Units 10:35 Total Bilirubin 0.20 (0.1-1.2) mg/dL AST 18 (5-40) units/L ALT 16 (7-56) units/L Alkaline Phosphatase 75 (35-129) units/L Albumin 2.4 L (3.9-5) g/dL Assessment and Plan Advance Directives: Yes (Full code) VTE prophylaxis?: Chemical Plan of care discussed with patient/family: Yes - Patient Problems (1) Severe anemia Current Visit: Yes Status: Chronic Plan to address problem: Secondary to end-stage renal disease No active GI bleeding Transfuse 1 to 2 units of packed red blood cells Recheck hemoglobin in a.m. (2) ESRD (end stage renal disease) Current Visit: No Status: Chronic Plan to address problem: Nephrology consulted for hemodialysis (3) COPD (chronic obstructive pulmonary disease) Current Visit: No Status: Chronic Qualifiers: COPD type: chronic bronchitis Plan to address problem: Bronchodilators as needed (4) HLD (hyperlipidemia) Current Visit: No Status: Chronic Qualifiers: Hyperlipidemia type: mixed hyperlipidemia Qualified Code(s): E78.2 - Mixed hyperlipidemia Plan to address problem: Continue statins (5) BPH (benign prostatic hyperplasia) Current Visit: Yes Status: Chronic Qualifiers: Lower urinary tract symptom presence: symptoms present Plan to address problem: On tamsulosin (6) Glaucoma Current Visit: Yes Status: Chronic Qualifiers: Glaucoma type: unspecified Laterality: bilateral Qualified Code(s): H40.9 - Unspecified glaucoma Plan to address problem: Continue latanoprost and other eyedrops (7) DVT prophylaxis Current Visit: No Status: Acute Plan to address problem: On heparin and GI prophylaxis (8) Advance care planning Current Visit: Yes Status: Acute Plan to address problem: Disease education conducted, diagnosis discussed, prognosis discussed. Patient is full code. Patient acknowledged understanding and agreement with care plan. +30 minutes.
[2022-02-07 06:56] LABS: Albumin 2.7 g/dL (3.9-5); Calcium 7.6 mg/dL (8.4-10.2)
[2022-02-07] MEDS ORDERED: LEVOTHYROXINE 125 MCG TAB PO SCH (08:00)
[2022-02-07] MEDS ORDERED: BRIMONIDINE 0.2% OP SCH (08:00)
[2022-02-07] MEDS ORDERED: METOCLOPRAMIDE 10 MG/2 ML INJ IV PRN (08:00)
[2022-02-07] MEDS ORDERED: SODIUM CHLORIDE 0.9% 100 ML IV PRN (08:22)
[2022-02-07] MEDS ORDERED: MOXIFLOXACIN 0.5% OPHTH SOLN 3ML OD SCH (10:00)
[2022-02-07] MEDS ORDERED: prednisoLONE ACETATE 1% OPHTH SUSP 5 ML OD SCH (10:00)
[2022-02-07] MEDS ORDERED: ATROPINE 1% OD SCH (10:00)
[2022-02-07] MEDS ORDERED: CALCITRIOL 0.5 MCG CAP PO SCH (10:00)
[2022-02-07] MEDS ORDERED: DORZOLAMIDE/TIMOLOL(NF) OPHTH DROP 2-0.5% 10 ML OU SCH (10:00)
[2022-02-07] MEDS ORDERED: FUROSEMIDE 40 MG/4 ML INJ IV ONE (10:26)
--- NOTE | 2022-02-07 10:31 | Consultation ---
History of Present Illness - Reason for Consult Consult date: 02/07/22 end stage renal disease Requesting physician: GURPREET SANDOVAL - History of Present Illness This is a 81 yo M with past medial history of hypertension, type 2 diabetes mellitus, advanced CKD progressing to ESRD, recently initiated on HD currently being dialyzed at [facility] on TTS schedule, who sees Dr. Brennen Carter my colleague in the office, who now presents to ER after he was found to have significant anemia on the routine labs from HD clinic with Hb as low as 6. patient is admitted for blood transfusion, renal consult is requested for management of ESRD/HD. Past History Past Medical History: anemia, ESRD, hypertension Past Surgical History: Other (permcath ) Social history: denies: smoking, prescription drug abuse, IV drug use Medications and Allergies Allergies Allergy/AdvReac Type Severity Reaction Status Date / Time amoxicillin Allergy Unknown Verified 02/06/22 16:34 Home Medications Medication Instructions Recorded Confirmed Last Taken Type Aspirin [Aspirin Enteric Coated] 81 mg PO DAILY 08/11/13 12/13/21 12/08/21 History amLODIPine 5 mg PO DAILY 08/11/13 12/13/21 1 Day Ago History ~02/06/22 Tamsulosin [Flomax] 0.4 mg PO DAILY 08/14/13 12/13/21 1 Day Ago History ~02/06/22 Albuterol Mdi (or & Nicu Only) 2 puff IH Q4H PRN #1 vial 08/19/13 12/13/21 Unknown Rx [ProAir HFA Inhaler] Montelukast [Singulair] 10 mg PO QHS #30 tablet 08/19/13 12/13/21 1 Day Ago Rx ~02/06/22 Rosuvastatin (Nf) [Crestor] 10 mg PO QHS 08/04/15 12/13/21 08/03/17 History Levocetirizine Dihydrochloride 5 mg PO DAILY 08/04/17 12/13/21 08/03/17 History [Xyzal] Levothyroxine [Synthroid] 100 mcg PO QAM 08/04/17 12/13/21 1 Day Ago History ~02/06/22 Acetaminophen [Acetaminophen TAB] 650 mg PO Q4H PRN tablet 09/29/20 12/13/21 Unknown Rx dexAMETHasone [Dexamethasone] 6 mg PO DAILY #4 tablet 09/29/20 12/13/21 Unknown Rx Brimonidine 0.15% 0.15 mg OU TID 12/13/21 12/13/21 1 Day Ago History ~02/06/22 Dorzolamide 2% Eye Drop 0.02 mg OU BID 12/13/21 12/13/21 1 Day Ago History ~02/06/22 Latanoprost 0.005% 0.05 mg OU HS 12/13/21 12/13/21 1 Day Ago History ~02/06/22 Metoprolol [Lopressor TAB] 12.5 mg PO BID #60 tablet 12/22/21 Unknown Rx hydrALAZINE [Apresoline TAB] 50 mg PO Q8HR #90 tablet 12/22/21 Unknown Rx Atropine 1% Ophth Soln BID 02/07/22 1 Day Ago History ~02/06/22 Metoprolol [Lopressor] 25 mg PO 02/07/22 1 Day Ago History ~02/06/22 Moxifloxacin 0.5% QID 02/07/22 1 Day Ago History ~02/06/22 Prednisolone Acet 1% Eye Drop QID 02/07/22 1 Day Ago History ~02/06/22 Rhopressa DAILY 02/07/22 1 Day Ago History ~02/06/22 Active Meds: Active Medications Acetaminophen (Acetaminophen 325 Mg Tab) 650 mg PO Q4H PRN PRN Reason: Pain MILD(1-3)/Fever >100.5/PALMER Albuterol (Albuterol 2.5 Mg/3 Ml Nebu) 2.5 mg IH Q4H PRN PRN Reason: Shortness Of Breath Last Admin: 02/06/22 23:11 Dose: 2.5 mg Amlodipine Besylate (Amlodipine 10 Mg Tab) 10 mg PO DAILY [facility] Last Admin: 02/06/22 18:10 Dose: 10 mg Aspirin (Aspirin Ec 81 Mg Tab) 81 mg PO DAILY [facility] Last Admin: 02/06/22 18:10 Dose: 81 mg Atorvastatin Calcium (Atorvastatin 20 Mg Tab) 20 mg PO QHS [facility] Last Admin: 02/06/22 22:00 Dose: Not Given Atropine Sulfate (Atropine 1% Ophth Soln 2 Ml) 1 drops OD BID [facility] Calcitriol (Calcitriol 0.5 Mcg Cap) 0.5 mcg PO QDAY [facility] Dorzolamide/Timolol (Dorzolamide/Timolol(Nf) Ophth Drop 2-0.5% 10 Ml) 1 drops OU BID [facility] Furosemide (Furosemide 40 Mg/4 Ml Inj) 80 mg IV ONCE ONE Stop: 02/07/22 10:27 Furosemide (Furosemide 40 Mg Tab) 40 mg PO QDAY [facility] Guaifenesin (Guaifenesin Dm 200/20 Mg Oral Liqd 10 Ml) 10 ml PO Q6HR PRN PRN Reason: Cough Last Admin: 02/06/22 22:43 Dose: 10 ml Heparin Sodium (Porcine) (Heparin 5,000 Unit/1 Ml Vial) 5,000 unit SUB-Q Q12HR [facility] Last Admin: 02/06/22 22:00 Dose: Not Given Hydralazine HCl (Hydralazine 25 Mg Tab) 50 mg PO Q8HR [facility] Last Admin: 02/07/22 05:38 Dose: 50 mg Hydromorphone HCl (Hydromorphone 0.5 Mg/0.5 Ml Inj) 0.5 mg IV Q3H PRN PRN Reason: Pain , Severe (7-10) Sodium Chloride (Nacl 0.9%) 100 mls @ 999 mls/hr IV MARK PRN PRN Reason: Hypotension Latanoprost (Latanoprost 0.005% Ophth Soln 2.5 Ml) 1 drops OU HS [facility] Levothyroxine Sodium (Levothyroxine 125 Mcg Tab) 125 mcg PO DAILY@0600 [facility] Metoclopramide HCl (Metoclopramide 10 Mg/2 Ml Inj) 5 mg IV Q8H PRN PRN Reason: Nausea And Vomiting Metoprolol Tartrate (Metoprolol Tartrate 25 Mg Tab) 12.5 mg PO BID [facility] Last Admin: 02/06/22 22:00 Dose: Not Given Miscellaneous Medication (Rhopressa 0.02% Oph Soln) 1 drop OP QHS [facility] Miscellaneous Medication (Brimonidine 0.2% Ophthalmic Soln) 1 drop OP TID [facility] Montelukast Sodium (Montelukast 10 Mg Tab) 10 mg PO QHS [facility] Last Admin: 02/06/22 22:00 Dose: Not Given Morphine Sulfate (Morphine 2 Mg/1 Ml Inj) 2 mg IV Q4H PRN PRN Reason: Pain, Moderate (4-6) Moxifloxacin HCl (Moxifloxacin 0.5% Ophth Soln 3ml) 1 drops OD QID NICOLASA Ondansetron HCl (Ondansetron 4 Mg/2 Ml Inj) 4 mg IV Q8H PRN PRN Reason: Nausea And Vomiting Oxycodone/Acetaminophen (Oxycodone /Acetaminophen 5-325mg Tab) 1 tab PO Q6H PRN PRN Reason: Pain, Moderate (4-6) Prednisolone Acetate (Prednisolone Acetate 1% Ophth Susp 5 Ml) 1 drops OD QID NICOLASA Sodium Chloride (Sodium Chloride 0.9% 10 Ml Flush Syringe) 10 ml IV BID [facility] Last Admin: 02/06/22 22:00 Dose: Not Given Sodium Chloride (Sodium Chloride 0.9% 10 Ml Flush Syringe) 10 ml IV PRN PRN PRN Reason: LINE FLUSH Tamsulosin HCl (Tamsulosin 0.4 Mg Cap) 0.4 mg PO DAILY [facility] Last Admin: 02/06/22 18:10 Dose: 0.4 mg Review of Systems Constitutional: anorexia, fatigue, weakness, malaise Hematologic/Lymphatic: other (anemia ) Exam - Vital Signs Vital signs: Vital Signs Temp Pulse Resp BP Pulse Ox 98.6 F 66 18 174/58 98 02/06/22 10:13 02/06/22 10:13 02/06/22 10:13 02/06/22 10:13 02/06/22 10:13 - General Appearance General appearance: well-developed, well-nourished, appears stated age EENT: ATNC, PERRL, mucous membranes moist Neck: Present: neck supple Respiratory: Decreased Breath Sounds Heart: regular, S1S2 Gastrointestinal: Present: normoactive bowel sounds Integumentary: no rash, other (+ edema b/l LE ) Neurologic: no focal deficit, alert and oriented x3, strength 5/5, CN 3-12 intact Results - Lab Results 02/07/22 06:05 02/07/22 06:05 Most recent lab results Calcium 7.6 mg/dL (8.4-10.2) L 02/07/22 06:05 Assessment and Plan - Patient Problems (1) Severe anemia Current Visit: Yes Status: Chronic Plan to address problem: Hb improved to > 9 after 4 PRBC transfusions. Will cont IV iron/SALIMA at his HD clinic. Recommend outpatient GI follow up to rule out GI etiologies of his anemia. (2) ESRD (end stage renal disease) Current Visit: Yes Status: Acute Plan to address problem: no acute indications for emergent renal replacement therapy. Will resume HD on TTS schedule at [facility]. Stable for discharge from renal stand point (3) Type 2 diabetes mellitus with diabetic chronic kidney disease Current Visit: Yes Status: Acute Qualifiers: Diabetes mellitus senior care insulin use: unspecified long term care pharmacist insulin use status Chronic kidney disease stage: stage 5, not on chronic dialysis Qualified Code(s): E11.22 - Type 2 diabetes mellitus with diabetic chronic kidney disease; N18.5 - Chronic kidney disease, stage 5 Plan to address problem: diabetes management as per primary attending (4) Hypertensive chronic kidney disease with stage 5 chronic kidney disease or end stage renal disease Current Visit: No Status: Acute Plan to address problem: monitor BP on current meds
[2022-02-07] MEDS: TAMSULOSIN 0.4 MG CAP PO SCH (10:34)
[2022-02-07] MEDS: ASPIRIN EC 81 MG TAB PO SCH (10:34)
[2022-02-07] MEDS: METOPROLOL TARTRATE 25 MG TAB PO SCH (10:35)
[2022-02-07] MEDS: amLODIPine 10 MG TAB PO SCH (10:35)
[2022-02-07 10:39] VITALS: BP 137/65
[2022-02-07] MEDS: HEPARIN 5,000 UNIT/1 ML VIAL SUB-Q SCH (10:39)
--- NOTE | 2022-02-07 11:01 | Discharge Summary ---
Providers - Providers Date of Admission: 02/06/22 16:25 Date of discharge: 02/07/22 Attending physician: GURPREET SANDOVAL MD 02/06/22 15:59 Consult to Physician [CONS] Stat Comment: Consulting Provider: KATHRYN ARNDT Physician Instructions: Reason For Exam: esrd on dialysis Primary care physician: GAYLA PERDOMO Hospitalization Reason for admission: Asymptomatic severe anemia Condition: Stable Pertinent studies: Reviewed. Procedures: Blood transfusion Hospital course: Patient is a 81-year-old male past medical history of hypertension, [id number] type 2 diabetes mellitus, ESRD on hemodialysis (TTS) who follows with Dr. Brennen Carter that presented to the ED from his hemodialysis clinic secondary to significant anemia with a hemoglobin of 5.8. The patient was unable to go hemodialysis at his HD center due to his hemoglobin being too low. Patient denies any hematuria, recent melena, or hematochezia. Patient was found to be hemodynamically stable on arrival in the ED. Patient underwent blood transfusion with 2 units packed RBCs, and he tolerated the procedure well. Patient was evaluated by nephrology who did not deem hemodialysis to be emergent at this time. The patient and his daughter were recommended to continue with her outpatient hemodialysis schedule with the next date being Tuesday (02/09/2022), expressed understanding. The patient will be referred to outpatient gastroenterology for further work-up of the patient's anemia despite receiving IV iron/SALIMA with his hemodialysis sessions. Family expresses understanding. Patient is medically clear for discharge. Disposition: 01 HOME / SELF CARE / HOMELESS Final Discharge Diagnosis (Prints w/discharge instructions): Asymptomatic severe anemia, ESRD on hemodialysis, history of COPD, hyperlipidemia, benign prostatic hyperplasia, glaucoma, obesity. Time spent for discharge: 45 min Core Measure Documentation - Palliative Care Palliative Care/ Comfort Measures: Not Applicable - Core Measures Any of the following diagnoses?: none Exam - Constitutional Vitals: Temp Pulse Resp BP Pulse Ox 98.2 F 80 18 137/65 99 02/07/22 10:23 02/07/22 10:35 02/07/22 10:23 02/07/22 10:35 02/07/22 10:23 General appearance: Present: no acute distress, well-nourished, obese - EENT Eyes: Present: PERRL, EOM intact ENT: hearing intact, clear oral mucosa, dentition normal - Neck Neck: Present: supple, normal ROM - Respiratory Respiratory effort: normal Respiratory: bilateral: diminished - Cardiovascular Rhythm: regular Heart Sounds: Present: S1 & S2 - Extremities Extremities: no ischemia, pulses intact, pulses symmetrical, No edema, normal temperature, normal color, Full ROM Peripheral Pulses: within normal limits - Abdominal General gastrointestinal: Present: soft, non-tender, non-distended, normal bowel sounds Male genitourinary: Present: deferred - Rectal Rectal Exam: deferred - Integumentary Integumentary: Present: clear, warm, dry - Musculoskeletal Musculoskeletal: strength equal bilaterally - Psychiatric Psychiatric: appropriate mood/affect, intact judgment & insight, memory intact, cooperative - Neurologic Neurologic: CNII-XII intact, moves all extremities - Allied Health Allied health notes reviewed: nursing Plan Activity: advance as tolerated Diet: renal Additional Instructions: Patient is a 81-year-old male past medical history of hypertension, sku-zadygbo-cycsfhjfh type 2 diabetes mellitus, ESRD on hemodialysis (TTS) who follows with Dr. Brennen Carter that presented to the ED from his hemodialysis clinic secondary to significant anemia with a hemoglobin of 5.8. The patient was unable to go hemodialysis at his HD center due to his hemoglobin being too low. Patient denies any hematuria, recent melena, or hematochezia. Patient was found to be hemodynamically stable on arrival in the ED. Patient underwent blood transfusion with 2 units packed RBCs, and he tolerated the procedure well. Patient was evaluated by nephrology who did not deem hemodialysis to be emergent at this time. The patient and his daughter were recommended to continue with her outpatient hemodialysis schedule with the next date being Tuesday (02/09/2022), expressed understanding. The patient will be referred to outpatient gastroenterology for further work-up of the patient's anemia despite receiving IV iron/SALIMA with his hemodialysis sessions. Family expresses understanding. Patient is medically clear for discharge. Care Plan Goals: Patient is medically cleared for discharge. Assessment: Patient is a 81-year-old male past medical history of hypertension, mvn-zvbrugt-cabsulfcj type 2 diabetes mellitus, ESRD on hemodialysis (TTS) who follows with Dr. Brennen Carter that presented to the ED from his hemodialysis clinic secondary to significant anemia with a hemoglobin of 5.8. The patient was unable to go hemodialysis at his HD center due to his hemoglobin being too low. Patient denies any hematuria, recent melena, or hematochezia. Patient was found to be hemodynamically stable on arrival in the ED. Patient underwent blood transfusion with 2 units packed RBCs, and he tolerated the procedure well. Patient was evaluated by nephrology who did not deem hemodialysis to be emergent at this time. The patient and his daughter were recommended to continue with her outpatient hemodialysis schedule with the next date being Tuesday (02/09/2022), expressed understanding. The patient will be referred to outpatient gastroenterology for further work-up of the patient's anemia despite receiving IV iron/SALIMA with his hemodialysis sessions. Family expresses understanding. Patient is medically clear for discharge. Follow up with: GAYLA PERDOMO MD [Primary Care Provider] - 7 Days EJNNIE ARMENTA MD [Staff Physician] - 14 Days
[2022-02-07] MEDS: ALBUTEROL 2.5 MG/3 ML NEBU IH PRN (11:15)
[2022-02-07] MEDS ORDERED: RHOPRESSA 0.02% OP SCH (22:00)
[2022-02-07] MEDS ORDERED: LATANOPROST 0.005% OPHTH SOLN 2.5 ML OU SCH (22:00)
[2022-02-08] MEDS ORDERED: FUROSEMIDE 40 MG TAB PO SCH (10:00)
== END 2022-02-07 13:28 | disposition home or self-care (01) | DRG 682 ==
LOC: ED 10:08 → 3A 16:25
PROVIDERS: ADMIT Internal Medicine; ATTEND Student in an Organized Health Care Education/Training Program
PROC: 30233N1 Transfusion of Nonautologous Red Blood Cells into Peripheral Vein, Percutaneous Approach (ICD-10-PCS; principal; 2022-02-06)
DX: I12.0 Hypertensive chronic kidney disease with stage 5 chronic kidney disease or end stage renal disease (principal); N18.6 End stage renal disease; E87.70 Fluid overload, unspecified; E11.22 Type 2 diabetes mellitus with diabetic chronic kidney disease; K21.9 Gastro-esophageal reflux disease without esophagitis; J44.9 Chronic obstructive pulmonary disease, unspecified; M19.90 Unspecified osteoarthritis, unspecified site; N40.0 Benign prostatic hyperplasia without lower urinary tract symptoms; D63.1 Anemia in chronic kidney disease; E78.2 Mixed hyperlipidemia; E66.9 Obesity, unspecified; Z68.34 Body mass index [BMI] 34.0-34.9, adult; Z79.82 Long term (current) use of aspirin; Z88.8 Allergy status to other drugs, medicaments and biological substances; Z99.2 Dependence on renal dialysis
CPT/HCPCS: 36415; 80053; 80074; 85025; 85610; 85730; 86850; 86900; 86901; 86920; 94640; 94644; G0378; J1644; J1940; P9016

== ENCOUNTER 2022-02-26 09:52 | Outpatient (CLI) | payer MEDICARE ==
--- NOTE | 2022-02-26 11:29 | Magnetic Resonance Report ---
MRI ABDOMEN WITHOUT CONTRAST INDICATION / CLINICAL INFORMATION: R31.0 HEMATURIA--RENAL MASS. TECHNIQUE: Multiplanar, multisequence series were obtained through the abdomen. COMPARISON: Noncontrast CT abdomen and pelvis dated 12/15/2021 FINDINGS: LIVER: No significant abnormality. GALLBLADDER: No significant abnormality. BILE DUCTS: No significant abnormality. PANCREAS: No significant abnormality. SPLEEN: No significant abnormality. ADRENALS: No significant abnormality. RIGHT KIDNEY AND URETER: There are multiple simple right renal cysts with the largest measuring 2.7 c m in diameter at the superior pole. There is an intermediate signal intensity cyst in the mid right k idney measuring 1.8 cm. The cyst demonstrates a debris level, increased signal on T1 and intermediate signal on T2. This is consistent with a hemorrhagic cyst. No solid renal mass. LEFT KIDNEY AND URETER: There are multiple simple left renal cysts with the largest measuring 3.4 cm near the superior pole. STOMACH AND VISUALIZED BOWEL: No significant abnormality. PERITONEUM: No free fluid. No free air. No fluid collection. LYMPH NODES: No significant adenopathy. AORTA and ARTERIES: No significant abnormality. IVC and VEINS: No significant abnormality. ADDITIONAL FINDINGS: None. SKELETAL SYSTEM: No significant abnormality. IMPRESSION: There are multiple bilateral renal cysts as described. Most of the cysts are simple in appearance. T here is one hemorrhagic cyst in the mid right kidney measuring 1.8 cm. This correlates with the abnor mality seen on recent CT. No solid renal mass. Signer Name: Sarkis Vanegas Jr, MD Signed: 02/26/2022 11:24 AM Workstation Name: [id number]
== END 2022-02-26 09:53 | disposition home or self-care (01) ==
LOC: MRI 09:52
PROVIDERS: ATTEND Urology
DX: N28.1 Cyst of kidney, acquired (principal); R31.0 Gross hematuria
CPT/HCPCS: 74181

== ENCOUNTER 2022-03-17 05:46 | Inpatient (IN) | payer MEDICARE ==
[2022-03-17] MEDS ORDERED: ceFAZolin/STERILE WATER 2 GM/20 ML SYRINGE IV SCH (06:00)
[2022-03-17] MEDS ORDERED: BACTERIOSTATIC SODIUM CHLORIDE 0.9% 30 ML VIAL INFILTRATI ONE (06:29)
[2022-03-17] MEDS ORDERED: SODIUM CHLORIDE 0.9% 1000 ML 1,000 ML ONE (06:29)
[2022-03-17] MEDS ORDERED: DEXTROSE 50% IN WATER (25GM) 50 ML SYRINGE IV ONE (06:57)
[2022-03-17] MEDS: SODIUM CHLORIDE 0.9% 1000 ML 1,000 ML IV SCH (07:02)
[2022-03-17 07:05] LABS: Mean Corpuscular HGB Conc 34 % (32-34); Mean Corpuscular Volume 97 fl (84-94); Platelet Count 133 K/mm3 (140-440); Red Blood Count 1.74 M/mm3 (3.65-5.03); Red Cell Distribution Width 17.5 % (13.2-15.2)
[2022-03-17 07:09] LABS: Hemoglobin 5.7 gm/dl (11.8-15.2)
[2022-03-17 07:10] LABS: Hematocrit 16.8 % (35.5-45.6)
[2022-03-17 07:23] LABS: Calcium 7.6 mg/dL (8.4-10.2)
[2022-03-17] MEDS ORDERED: HEPARIN 10,000 UNITS/10 ML VIAL ONE (07:34)
[2022-03-17] MEDS ORDERED: SODIUM CHLORIDE P/F VIAL 10 ML 0 ML ONE (07:34)
[2022-03-17] MEDS ORDERED: BUPIVACAINE/PF (0.5%) 5 MG/1 ML 30 ML VIAL INFILTRATI ONE (07:34)
[2022-03-17] MEDS ORDERED: SODIUM CHLORIDE 0.9% 250ML 0 ML ONE (07:35)
[2022-03-17] MEDS ORDERED: rifAMPin 600 MG VIAL ONE (07:35)
[2022-03-17] MEDS ORDERED: SODIUM CHLORIDE 0.9% 500 ML 0 ML ONE (07:35)
--- NOTE | 2022-03-17 08:02 | History and Physical Report ---
History of Present Illness Date of examination: 03/17/22 Date of admission: 03/17/22 Chief complaint: Severe anemia Hb 5.7 History of present illness: 80-year-old male patient with significant past medical history of chronic kidney disease on hemodialysis type 2 diabetes mellitus hypertension GERD arthritis COPD throat cancer dyslipidemia hypothyroidism was scheduled by vascular surgeon for elective AV graft creation this morning, however patient was found to be sev erely anemic with hemoglobin of 5.7 this morning. Patient has history of chronic anemia requiring blood transfusion many times, patient did not have any evidence of bleeding anemia is due to chronic kidney disease . Vascular canceled the scheduled procedure and requested hospitalist service to admit and manage severe anemia and other medical problems, and the plan to do the AV graft when patient is more stable.,Patient is elderly and language barrier,Son is at the bedside Patient denies any headache dizziness weakness or numbness denies any chest pain or shortness of breath Denies nausea vomiting or abdominal pain Patient is on hemodialysis TTS schedule. Past History Past Medical History: dialysis, ESRD, hypertension, hyperlipidemia, hypothyroid ism Past Surgical History: Other (AV fistula. Prostate surgery) Social history: denies: smoking, alcohol abuse, prescription drug abuse Family history: no significant family history Medications and Allergies Allergies Allergy/AdvReac Type Severity Reaction Status Date / Time amoxicillin Allergy Itching Verified 03/09/22 13:44 Home Medications Medication Instructions Recorded Confirmed Last Taken Type Tamsulosin [Flomax] 0.4 mg PO DAILY 08/14/13 03/09/22 03/16/22 History Levothyroxine [Synthroid] 100 mcg PO QAM 08/04/17 03/09/22 03/17/22 04:45 History Latanoprost 0.005% 0.05 mg OU HS 12/13/21 03/09/22 03/16/22 History Brimonidine 0.2% Ophthalmic Soln 1 drop OP TID 02/07/22 03/09/22 03/16/22 Rx Dorzolamide/Timolol(Nf) 2-0.5% 1 drops OU BID bottle 02/07/22 03/09/22 03/16/22 Rx [Cosopt (Nf)] Metoprolol [Lopressor TAB] 25 mg PO QDAY 02/07/22 03/09/22 03/17/22 04:45 History Rhopressa 0.02% Oph Soln 1 drop OP QHS 02/07/22 03/09/22 03/16/22 Rx Azelastine 0.1% (Nf) [Astelin (Nf)] 137 mcg NS BID 03/09/22 03/09/22 03/16/22 History Calcium Carbonate [Tums 500MG CHEW] 1,000 mg PO QHS 03/09/22 03/09/22 03/16/22 History Ferrous Sulfate [Feosol] 325 mg PO QDAY 03/09/22 03/09/22 03/16/22 History Fluticasone Propionate [Flovent 100 mcg IH PRN 03/09/22 03/09/22 03/16/22 History Diskus] Fluticasone/Umeclidin/Vilanter 1 each IH QDAY 03/09/22 03/09/22 03/16/22 History [Trelegy Ellipta 100-62.5-25] Furosemide [Lasix] 20 mg PO BID 03/09/22 03/09/22 03/16/22 History Insulin Lispro Protamin/Lispro 20 unit SQ BID 03/09/22 03/09/22 03/16/22 History [Humalog Mix 75-25 Vial] Ipratropium/Albuterol Sulfate 1 ampul IH Q4HR PRN 03/09/22 03/09/22 03/16/22 History [DUONEB *Not for PRN Use*] Simvastatin 20 mg PO QHS 03/09/22 03/09/22 03/16/22 History Sodium Bicarbonate 650 mg PO BID 03/09/22 03/09/22 03/16/22 History Telmisartan/Amlodipine 1 each PO QDAY 03/09/22 03/09/22 03/16/22 History [Telmisartan-Amlodipine 40-5 mg] prednisoLONE ACETATE 1% [Pred 1 drops OD TID 03/09/22 03/09/22 03/16/22 History Forte 1%] Active Meds: Active Medications Clindamycin HCl (Cleocin 900 Mg/50 Ml) 900 mg in 50 mls @ 100 mls/hr IV PREOP NR; Protocol Stop: 03/17/22 23:59 Sodium Chloride (Nacl 0.9% 1000 Ml) 1,000 mls @ 42 mls/hr IV DIRECT NICOLASA Sodium Chloride (Nacl 0.9% 500 Ml) 500 mls @ 0 mls/hr IV ONCE ONE Stop: 03/17/22 07:48 Review of Systems Constitutional: weakness, no weight loss, no weight gain, no fatigue Ears, nose, mouth and throat: no nasal congestion, no nasal discharge Cardiovascular: no chest pain (Vague chest discomfort), no orthopnea, no palpitations, no lightheadedness Respiratory: no cough, no shortness of breath Gastrointestinal: no abdominal pain, no nausea, no vomiting Genitourinary Male: no dysuria, no hematuria Musculoskeletal: no myalgias, no arthritis Integumentary: no rash, no lesions Neurological: no seizures, no syncope Psychiatric: no anxiety, no depression Endocrine: no cold intolerance, no heat intolerance Hematologic/Lymphatic: no easy bruising, no easy bleeding Allergic/Immunologic: no urticaria, no allergic rhinitis Exam - Constitutional General appearance: Present: no acute distress, well-nourished - EENT Eyes: Present: PERRL, EOM intact - Neck Neck: Present: supple, normal ROM - Respiratory Respiratory effort: normal Respiratory: bilateral: diminished, negative: rales, rhonchi, wheezing - Cardiovascular Rhythm: regular Heart Sounds: Present: S1 & S2 - Extremities Extremities: no ischemia, No edema - Abdominal General gastrointestinal: Present: soft, non-tender, non-distended, normal bowel sounds - Integumentary Integumentary: Present: clear, warm - Musculoskeletal Musculoskeletal: strength equal bilaterally, generalized weakness - Psychiatric Psychiatric: appropriate mood/affect, cooperative - Neurologic Neurologic: moves all extremities Results - Labs CBC & Chem 7: 03/17/22 06:40 03/17/22 06:40 Labs: Abnormal lab results 03/17/22 03/17/22 03/17/22 Range/Units 06:40 06:40 06:48 RBC 1.74 L (3.65-5.03) M/mm3 Hgb 5.7 L* (11.8-15.2) gm/dl Hct 16.8 L* (35.5-45.6) % MCV 97 H (84-94) fl MCH 33 H (28-32) pg RDW 17.5 H (13.2-15.2) % Plt Count 133 L (140-440) K/mm3 Sodium 134 L (137-145) mmol/L Potassium 3.5 L (3.6-5.0) mmol/L Carbon Dioxide 32 H (22-30) mmol/L Creatinine 4.0 H (0.8-1.3) mg/dL Glucose 50 L (75-100) mg/dL POC Glucose 50 L (70-105) mg/dL Calcium 7.6 L (8.4-10.2) mg/dL Assessment and Plan - Patient Problems (1) Severe anemia Current Visit: No Status: Chronic Plan to address problem: Type and cross, transfuse 2 to 3 units PRBC per protocol Closely monitor H&H and transfuse additional PRBC as needed (2) ESRD (end stage renal disease) Current Visit: No Status: Chronic Plan to address problem: On hemodialysis TTS Nephrology consulted, HD per schedule (3) Hypothyroidism (acquired) Current Visit: No Status: Chronic Plan to address problem: Resume home Synthroid, supportive care (4) HTN (hypertension) Current Visit: No Status: Chronic Qualifiers: Hypertension type: essential hypertension Plan to address problem: Moderate control Resume home antihypertensives and as needed hydralazine closely monitor blood pressures (5) IDDM (insulin dependent diabetes mellitus) Current Visit: No Status: Chronic Plan to address problem: Accu-Cheks sliding scale coverage ADA diet Long-acting insulin as needed (6) BPH (benign prostatic hyperplasia) Current Visit: No Status: Chronic Qualifiers: Lower urinary tract symptom presence: symptoms present Plan to address problem: Continue tamsulosin and supportive care (7) HLD (hyperlipidemia) Current Visit: No Status: Chronic Qualifiers: Hyperlipidemia type: mixed hyperlipidemia Qualified Code(s): E78.2 - Mixed hyperlipidemia Plan to address problem: Low-cholesterol diet, statin (8) Severe protein-calorie malnutrition Current Visit: Yes Status: Acute (9) Patient is full code Current Visit: Yes Status: Acute Plan to address problem: Full CODE STATUS (10) DVT prophylaxis Current Visit: No Status: Acute Plan to address problem: SCDs, no pharmacologic anticoagulation in view of severe anemia Closely monitor the patient and adjust management as needed Transfuse 3 units of PRBC,l Check H&H, transfuse additional PRBC if needed Follow health analytics consultant recommendations Discharge planning per case management when medically stable Elective creation of left arm AV graft; Vascular surgeon Dr. Stalin Munguia scheduled for left AV graft placement However patient has severe anemia with hemoglobin of 5.3, procedure was rescheduled to 03/19/2022 Patient is receiving total 3 units of PRBC transfusion, second unit planning.
[2022-03-17] MEDS ORDERED: MORPHINE 2 MG/1 ML INJ IV PRN (08:03)
[2022-03-17] MEDS ORDERED: DOCUSATE SODIUM 100 MG CAP PO PRN (08:03)
[2022-03-17] MEDS ORDERED: ACETAMINOPHEN 325 MG TAB PO PRN (08:03)
[2022-03-17] MEDS ORDERED: MORPHINE 4 MG/1 ML INJ IV PRN (08:03)
--- NOTE | 2022-03-17 08:03 | Event Note ---
Date: 03/17/22 Patient scheduled for elective creation of left arm arteriovenous graft. Labs today reveal Hgb 5.7. He has a history of anemia and has required admission with transfusion of PRBC in both December and January of this year. Unsafe to perform and elective procedure with such severe anemia. Will require admission and transfusion of PRBC with the plan to perform AVG creation on Tuesday.
[2022-03-17] MEDS ORDERED: FLUTICASONE PROPIONATE 100 MCG IH SCH (08:15)
--- NOTE | 2022-03-17 08:36 | Consultation ---
History of Present Illness - Reason for Consult Consult date: 03/17/22 Creation of Dialysis Access Requesting physician: YENY RICARDO - History of Present Illness The patient is an 81-year-old male with a history of end-stage renal disease was currently on hemodialysis through a right internal jugular permacath. He was scheduled for an elective creation of a left arm arteriovenous graft. His preoperative labs demonstrated that he has an anemia with a hemoglobin of 5.7. He has required multiple admissions over the last 10 months for anemia with his lowest hemoglobin being 4.9. Given the anemia and that this is an elective procedure the patient's case was canceled and he requires admission for transfusion of packed red blood cells. I discussed this with the patient's grandson who expressed understanding and was able to translate this to the patient who also expressed understanding and agrees to the admission. Past History Past Medical History: diabetes, dialysis, ESRD, hypertension, hypothyroidism, other (Asthma) Past Surgical History: thyroidectomy, TURP, Other (Permacath insertion, ) Social history: lives with family Family history: no significant family history Medications and Allergies Allergies Allergy/AdvReac Type Severity Reaction Status Date / Time amoxicillin Allergy Itching Verified 03/09/22 13:44 Home Medications Medication Instructions Recorded Confirmed Last Taken Type Tamsulosin [Flomax] 0.4 mg PO DAILY 08/14/13 03/09/22 03/16/22 History Levothyroxine [Synthroid] 100 mcg PO QAM 08/04/17 03/09/22 03/17/22 04:45 History Latanoprost 0.005% 0.05 mg OU HS 12/13/21 03/09/22 03/16/22 History Brimonidine 0.2% Ophthalmic Soln 1 drop OP TID 02/07/22 03/09/22 03/16/22 Rx Dorzolamide/Timolol(Nf) 2-0.5% 1 drops OU BID bottle 02/07/22 03/09/22 03/16/22 Rx [Cosopt (Nf)] Metoprolol [Lopressor TAB] 25 mg PO QDAY 02/07/22 03/09/22 03/17/22 04:45 History Rhopressa 0.02% Oph Soln 1 drop OP QHS 02/07/22 03/09/22 03/16/22 Rx Azelastine 0.1% (Nf) [Astelin (Nf)] 137 mcg NS BID 03/09/22 03/09/22 03/16/22 History Calcium Carbonate [Tums 500MG CHEW] 1,000 mg PO QHS 03/09/22 03/09/22 03/16/22 History Ferrous Sulfate [Feosol] 325 mg PO QDAY 03/09/22 03/09/22 03/16/22 History Fluticasone Propionate [Flovent 100 mcg IH PRN 03/09/22 03/09/22 03/16/22 History Diskus] Fluticasone/Umeclidin/Vilanter 1 each IH QDAY 03/09/22 03/09/22 03/16/22 History [Trelegy Ellipta 100-62.5-25] Furosemide [Lasix] 20 mg PO BID 03/09/22 03/09/22 03/16/22 History Insulin Lispro Protamin/Lispro 20 unit SQ BID 03/09/22 03/09/22 03/16/22 History [Humalog Mix 75-25 Vial] Ipratropium/Albuterol Sulfate 1 ampul IH Q4HR PRN 03/09/22 03/09/22 03/16/22 History [DUONEB *Not for PRN Use*] Simvastatin 20 mg PO QHS 03/09/22 03/09/22 03/16/22 History Sodium Bicarbonate 650 mg PO BID 03/09/22 03/09/22 03/16/22 History Telmisartan/Amlodipine 1 each PO QDAY 03/09/22 03/09/22 03/16/22 History [Telmisartan-Amlodipine 40-5 mg] prednisoLONE ACETATE 1% [Pred 1 drops OD TID 03/09/22 03/09/22 03/16/22 History Forte 1%] Active Meds: Active Medications Acetaminophen (Acetaminophen 325 Mg Tab) 650 mg PO Q4H PRN PRN Reason: Pain MILD(1-3)/Fever >100.5/PALMER Albuterol/Ipratropium (Ipratropium/Albuterol Sulfate 3 Ml Ampul.Neb) 1 ampul IH Q4HR PRN PRN Reason: Shortness Of Breath Calcium Carbonate/Glycine (Calcium Carbonate 500 Mg Tab Chew) 1,000 mg PO QHS [facility] Dextrose (Dextrose 50% In Water (25gm) 50 Ml Syringe) 25 ml IV PREOP [facility]; Protocol Stop: 03/17/22 12:00 Docusate Sodium (Docusate Sodium 100 Mg Cap) 100 mg PO BID PRN PRN Reason: Constipation Famotidine (Famotidine 20 Mg/2 Ml Inj) 20 mg IV BID [facility] Ferrous Sulfate (Ferrous Sulfate 325 Mg Tab) 325 mg PO QDAY [facility] Furosemide (Furosemide 20 Mg Tab) 20 mg PO BID [facility] Hydralazine HCl (Hydralazine 20 Mg/1 Ml Inj) 10 mg IV Q4HR PRN PRN Reason: Hypertension Clindamycin HCl (Cleocin 900 Mg/50 Ml) 900 mg in 50 mls @ 100 mls/hr IV PREOP NR; Protocol Stop: 03/17/22 23:59 Sodium Chloride (Nacl 0.9% 1000 Ml) 1,000 mls @ 42 mls/hr IV DIRECT [facility] Last Admin: 03/17/22 07:02 Dose: 42 mls/hr Sodium Chloride (Nacl 0.9% 500 Ml) 500 mls @ 0 mls/hr IV ONCE ONE Stop: 03/17/22 07:48 Levothyroxine Sodium (Levothyroxine 125 Mcg Tab) 100 mcg PO QAM [facility] Metoprolol Tartrate (Metoprolol Tartrate 25 Mg Tab) 25 mg PO QDAY [facility] Miscellaneous Medication (Fluticasone Propionate [Flovent Diskus]) 100 mcg IH PRN [facility] Miscellaneous Medication (Simvastatin [Simvastatin]) 20 mg PO QHS [facility] Morphine Sulfate (Morphine 2 Mg/1 Ml Inj) 2 mg IV Q4H PRN PRN Reason: Pain, Moderate (4-6) Morphine Sulfate (Morphine 4 Mg/1 Ml Inj) 4 mg IV Q4H PRN PRN Reason: Pain , Severe (7-10) Naloxone HCl (Naloxone 0.4 Mg/1 Ml Inj) 0.1 mg IV Q2MIN PRN PRN Reason: Res Rate </= 8 or 02 SAT < 92% Ondansetron HCl (Ondansetron 4 Mg/2 Ml Inj) 4 mg IV Q8H PRN PRN Reason: Nausea And Vomiting Sodium Bicarbonate (Sodium Bicarbonate 650 Mg Tab) 650 mg PO BID [facility] Sodium Chloride (Sodium Chloride 0.9% 10 Ml Flush Syringe) 10 ml IV BID [facility] Sodium Chloride (Sodium Chloride 0.9% 10 Ml Flush Syringe) 10 ml IV PRN PRN PRN Reason: LINE FLUSH Tamsulosin HCl (Tamsulosin 0.4 Mg Cap) 0.4 mg PO DAILY [facility] Review of Systems All systems: negative Exam - Constitutional Vitals: Temp Pulse Resp BP Pulse Ox 99.7 F H 60 20 137/68 100 03/17/22 06:36 03/17/22 06:36 03/17/22 06:36 03/17/22 06:36 03/17/22 06:36 General appearance: Present: no acute distress - Neck Neck: Present: supple, other (Right IJ permacath is without overt signs of infection) - Respiratory Respiratory effort: normal - Cardiovascular Rhythm: regular - Extremities Extremities: no ischemia, pulses intact (palpable radial pulses bilaterally) - Abdominal General gastrointestinal: Present: soft, non-tender Male genitourinary: Present: deferred - Rectal Rectal Exam: deferred Results - Labs CBC & Chem 7: 03/17/22 06:40 03/17/22 06:40 Labs: Abnormal lab results 03/17/22 03/17/22 03/17/22 Range/Units 06:40 06:40 06:48 RBC 1.74 L (3.65-5.03) M/mm3 Hgb 5.7 L* (11.8-15.2) gm/dl Hct 16.8 L* (35.5-45.6) % MCV 97 H (84-94) fl MCH 33 H (28-32) pg RDW 17.5 H (13.2-15.2) % Plt Count 133 L (140-440) K/mm3 Sodium 134 L (137-145) mmol/L Potassium 3.5 L (3.6-5.0) mmol/L Carbon Dioxide 32 H (22-30) mmol/L Creatinine 4.0 H (0.8-1.3) mg/dL Glucose 50 L (75-100) mg/dL POC Glucose 50 L (70-105) mg/dL Calcium 7.6 L (8.4-10.2) mg/dL Assessment and Plan The patient is an 81-year-old male with a history of end-stage renal disease who is being admitted secondary to severe anemia. He will require transfusion of packed red blood cells with the plan to hopefully undergo dialysis tomorrow and creation of a left arm arteriovenous graft on Tuesday. He will be able to be discharged after the creation of his graft. This plan was again discussed with the patient as well as his grandson who was able to translate this to him. They have both expressed understanding and agreed to proceed.
[2022-03-17] MEDS ORDERED: DEXTROSE 50% IN WATER (25GM) 50 ML SYRINGE IV SCH (09:00)
[2022-03-17] MEDS ORDERED: ALBUTEROL 2.5 MG/3 ML NEBU IH PRN (09:32)
[2022-03-17] MEDS ORDERED: NALOXONE 0.4 MG/1 ML INJ IV PRN (09:34)
[2022-03-17] MEDS ORDERED: ONDANSETRON 4 MG/2 ML INJ IV PRN (09:35)
[2022-03-17] MEDS ORDERED: SODIUM CHLORIDE 0.9% 500 ML 500 ML IV NR (10:00)
[2022-03-17] MEDS: LEVOTHYROXINE 100 MCG TAB PO SCH (12:49)
[2022-03-17] MEDS: FERROUS SULFATE 325 MG TAB PO SCH (12:49)
[2022-03-17] MEDS: TAMSULOSIN 0.4 MG CAP PO SCH (12:49)
[2022-03-17] MEDS: FUROSEMIDE 20 MG TAB PO SCH ×2 (12:50→22:03)
[2022-03-17] MEDS: METOPROLOL TARTRATE 25 MG TAB PO SCH (12:50)
[2022-03-17] MEDS: SODIUM BICARBONATE 650 MG TAB PO SCH ×2 (12:50→22:03)
[2022-03-17] MEDS: FAMOTIDINE 20 MG/2 ML INJ IV SCH ×2 (12:51→22:03)
--- NOTE | 2022-03-17 18:33 | Progress Note ---
Assessment and Plan Assessment and plan: -- Severe anemia/received blood transfusion/today Hb 7.6 Type and cross, transfuse 2 to 3 units PRBC per protocol Closely monitor H&H and transfuse additional PRBC as needed Stool for occult blood to rule out GI causes of severe anemia --ESRD (end stage renal disease) On hemodialysis TTS Nephrology consulted, HD per schedule --Hypothyroidism (acquired) Resume home Synthroid, supportive care -- HTN (hypertension) Moderate control Resume home antihypertensives and as needed hydralazine closely monitor blood pressures --IDDM (insulin dependent diabetes mellitus) Accu-Cheks sliding scale coverage ADA diet Long-acting insulin as needed --BPH (benign prostatic hyperplasia) Continue tamsulosin and supportive care Closely monitor the patient and adjust management as needed --HLD (hyperlipidemia) Low-cholesterol diet, statin Supportive care -- Severe protein-calorie malnutrition Nutrition supplements and supportive care --Full code status Full CODE STATUS --DVT prophylaxis SCDs, no pharmacologic anticoagulation in view of severe anemia Closely monitor the patient and adjust management as needed Plan of care reviewed with the patient and his daughter at bedside his nurse Also discussed with the case management 03/18/2022; New onset hemodialysis, outpatient HD chair Received 2 units PRBC Hb 7.6 today, nephrology following History Interval history: I have seen and examined the patient at the bedside Patient's chart and medications reviewed Patient's daughter is in the room Vital signs noted Hospitalist Physical - Constitutional Vitals: Temp Pulse Resp BP Pulse Ox 98.0 F 56 L 17 168/64 100 03/17/22 14:15 03/17/22 14:30 03/17/22 14:30 03/17/22 14:30 03/17/22 14:30 General appearance: Present: no acute distress, well-nourished, other (Minimally communicative/patient's daughter at the bedside) - EENT Eyes: Present: PERRL, EOM intact - Neck Neck: Present: supple, normal ROM - Respiratory Respiratory effort: normal Respiratory: bilateral: diminished, negative: rales, rhonchi, wheezing - Cardiovascular Rhythm: regular Heart Sounds: Present: S1 & S2 - Extremities Extremities: no ischemia, No edema - Abdominal General gastrointestinal: soft, non-tender, non-distended, normal bowel sounds - Integumentary Integumentary: Present: clear, warm - Psychiatric Psychiatric: appropriate mood/affect, cooperative, other (Minimally communicative) - Neurologic Neurologic: moves all extremities Results - Labs CBC & Chem 7: 03/18/22 06:17 03/18/22 06:17 Labs: Laboratory Last Values WBC 5.9 K/mm3 (4.5-11.0) 03/17/22 06:40 RBC 1.74 M/mm3 (3.65-5.03) L 03/17/22 06:40 Hgb 5.7 gm/dl (11.8-15.2) L* 03/17/22 06:40 Hct 16.8 % (35.5-45.6) L* 03/17/22 06:40 MCV 97 fl (84-94) H 03/17/22 06:40 MCH 33 pg (28-32) H 03/17/22 06:40 MCHC 34 % (32-34) 03/17/22 06:40 RDW 17.5 % (13.2-15.2) H 03/17/22 06:40 Plt Count 133 K/mm3 (140-440) L 03/17/22 06:40 Sodium 134 mmol/L (137-145) L 03/17/22 06:40 Potassium 3.5 mmol/L (3.6-5.0) L 03/17/22 06:40 Chloride 98.8 mmol/L (98-107) 03/17/22 06:40 Carbon Dioxide 32 mmol/L (22-30) H 03/17/22 06:40 Anion Gap 7 mmol/L 03/17/22 06:40 BUN 20 mg/dL (9-20) 03/17/22 06:40 Creatinine 4.0 mg/dL (0.8-1.3) H 03/17/22 06:40 Estimated GFR 14 ml/min 03/17/22 06:40 BUN/Creatinine Ratio 5 % 03/17/22 06:40 Glucose 50 mg/dL (75-100) L 03/17/22 06:40 POC Glucose 120 mg/dL (70-105) H 03/17/22 17:54 Calcium 7.6 mg/dL (8.4-10.2) L 03/17/22 06:40 Blood Type B POSITIVE 03/17/22 07:22 Antibody Screen Negative 03/17/22 07:22 Crossmatch See Detail 03/17/22 07:22 Salazar/IV: Voiding Method Toilet Active Medications - Current Medications Current Medications: Generic Name Dose Route Start Last Admin Trade Name Freq PRN Reason Stop Dose Admin Acetaminophen 650 mg 03/17/22 08:03 Acetaminophen 325 Mg Tab PO Q4H PRN Pain MILD(1-3)/Fever >100.5/PALMER Albuterol 1 mg 03/17/22 09:32 Albuterol 2.5 Mg/3 Ml Nebu IH Q4HR PRN Shortness Of Breath Budesonide 0.5 mg 03/17/22 20:00 Budesonide 0.5 Mg/2 Ml Nebu IH Q12HRT [facility] Calcium Carbonate/Glycine 1,000 mg 03/17/22 22:00 Calcium Carbonate 500 Mg Tab Chew PO QHS [facility] Docusate Sodium 100 mg 03/17/22 08:03 Docusate Sodium 100 Mg Cap PO BID PRN Constipation Famotidine 10 mg 03/17/22 10:00 03/17/22 12:51 Famotidine 20 Mg/2 Ml Inj IV 10 mg BID N[facility] Administration Ferrous Sulfate 325 mg 03/17/22 10:00 03/17/22 12:49 Ferrous Sulfate 325 Mg Tab PO 325 mg QDAY [facility] Administration Furosemide 20 mg 03/17/22 10:00 03/17/22 12:50 Furosemide 20 Mg Tab PO 20 mg BID [facility] Administration Hydralazine HCl 10 mg 03/17/22 08:24 Hydralazine 20 Mg/1 Ml Inj IV Q4HR PRN Hypertension Clindamycin HCl 900 mg in 50 mls @ 100 mls/hr 03/17/22 07:00 Cleocin 900 Mg/50 Ml IV 03/17/22 23:59 PREOP NR Protocol Sodium Chloride 1,000 mls @ 42 mls/hr 03/17/22 06:30 03/17/22 07:02 Nacl 0.9% 1000 Ml IV 42 mls/hr DIRECT [facility] Administration Sodium Chloride 500 mls @ 0 mls/hr 03/17/22 10:00 Nacl 0.9% 500 Ml IV 03/17/22 23:59 ONCE NR As Directed Levothyroxine Sodium 100 mcg 03/17/22 10:00 03/17/22 12:49 Levothyroxine 100 Mcg Tab PO 100 mcg DAILY@0600 [facility] Administration Metoprolol Tartrate 25 mg 03/17/22 10:00 03/17/22 12:50 Metoprolol Tartrate 25 Mg Tab PO 25 mg QDAY [facility] Administration Morphine Sulfate 2 mg 03/17/22 08:03 Morphine 2 Mg/1 Ml Inj IV Q4H PRN Pain, Moderate (4-6) Morphine Sulfate 4 mg 03/17/22 08:03 Morphine 4 Mg/1 Ml Inj IV Q4H PRN Pain , Severe (7-10) Naloxone HCl 0.1 mg 03/17/22 09:34 Naloxone 0.4 Mg/1 Ml Inj IV Q2MIN PRN Res Rate </= 8 or 02 SAT < 92% Ondansetron HCl 4 mg 03/17/22 09:35 Ondansetron 4 Mg/2 Ml Inj IV Q8H PRN Nausea And Vomiting Pravastatin Sodium 40 mg 03/17/22 22:00 Pravastatin 40 Mg Tab PO QHS [facility] Sodium Bicarbonate 650 mg 03/17/22 10:00 03/17/22 12:50 Sodium Bicarbonate 650 Mg Tab PO 650 mg BID [facility] Administration Sodium Chloride 10 ml 03/17/22 10:00 03/17/22 12:50 Sodium Chloride 0.9% 10 Ml Flush Syringe IV 10 ml BID [facility] Administration Sodium Chloride 10 ml 03/17/22 09:36 Sodium Chloride 0.9% 10 Ml Flush Syringe IV PRN PRN LINE FLUSH Tamsulosin HCl 0.4 mg 03/17/22 10:00 03/17/22 12:49 Tamsulosin 0.4 Mg Cap PO 0.4 mg DAILY N[facility] Administration Nutrition/Malnutrition Assess - Dietary Evaluation Nutrition/Malnutrition Findings: Nutrition Notes Start: 03/17/22 15:14 Freq: Status: Active Protocol: Document 03/17/22 15:14 ANDREW (Rec: 03/17/22 15:31 ANDREW [id number]) Nutrition Notes Need for Assessment generated from: diamond expert Initial or Follow up Assessment Current Diagnosis CKD (stage V CKD),COPD, Diabetes,Hypertension, Malnutrition,Hyperlipidemia Other Pertinent Diagnosis ESRD+HD, Anemia, Throat Cancer , GERD, Hypothyroidism. Current Diet Renal Diet (since L 03/17). Labs/Tests 03/17: Na 134, K 3.5, CO2 32, Crea 4.0, Glu 50, Ca 7.6. Pertinent Medications 03/17: FeSO4, Levthyroxine, others nutritionally unremarkable. 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 Weight Status Overweight Subjective/Other Information RD consult for skin risk assessment. No reports available on Pt;s PO intake of meals at the time , will assess at F/U. Pt is on Nasal Cannula, O2 saturation @ 96%, according to Physical Assessment History notes. Plan for creation of L-UE AV Graft on 03/19, according to Progress notes. Pt shows no signs of concern for skin risk at the time, according to Physical Assessment History notes. Percent of energy/protein needs met: Prescribed Renal Diet provides for energy/protein needs (2, 072 Kcal/77 g) during LOS. Burn Absent Trauma Absent GI Symptoms None Food Allergy No Skin Integrity/Comment Assessment WNL. Minimum of two criteria No Fluid Accumulation N/A Reduced Inspector Insulation Strength N/A (non-severe) Protein-Calorie Malnutrition N\A #1 Nutrition Diagnosis No nutrition diagnosis at this time Is patient on ventilator? No Is Patient Ambulatory and/or Out of Bed Yes REE-([place]-ambulatory/OOB) [ 1696.500 [id number]] Kcal/Kg value to use for calculation 17 Approximate Energy Requirements Using 1234 kcal/Kg Calculation Used for Recommendations Kcal/kg Additional Notes Protein: >1.2 g/Kg ABW; >88 g/ day. Fluids: 1 ml/Kcal, or as per MD. Nutrition Intervention Change Diet Order: Continue Renal Diet. Follow-Up By: 03/24/22 Additional Comments Continue monitoring food tolerance, %PO intake of meals , and BM.
[2022-03-17 20:26] LABS: Hematocrit 20.6 % (35.5-45.6); Hemoglobin 7.2 gm/dl (11.8-15.2)
[2022-03-17 20:28] LABS: Hematocrit 21.2 % (35.5-45.6); Hemoglobin 7.3 gm/dl (11.8-15.2)
[2022-03-17] MEDS: BUDESONIDE 0.5 MG/2 ML NEBU IH SCH (20:50)
[2022-03-17] MEDS: hydrALAZINE 20 MG/1 ML INJ IV PRN (22:02)
[2022-03-17] MEDS: PRAVASTATIN 40 MG TAB PO SCH (22:03)
[2022-03-17] MEDS: CALCIUM CARBONATE 500 MG TAB CHEW PO SCH (22:03)
[2022-03-18] MEDS: hydrALAZINE 20 MG/1 ML INJ IV PRN ×3 (05:37→23:05)
[2022-03-18] MEDS: LEVOTHYROXINE 100 MCG TAB PO SCH (05:37)
[2022-03-18 06:43] LABS: Basophils # (Auto) 0.1 K/mm3 (0.0-0.1); Basophils % (Auto) 0.9 % (0.0-1.8); Eosinophils # (Auto) 0.2 K/mm3 (0.0-0.4); Eosinophils % (Auto) 3.5 % (0.0-4.3); Hemoglobin 7.6 gm/dl (11.8-15.2); Lymphocytes # (Auto) 1.4 K/mm3 (1.2-5.4); Lymphocytes % (Auto) 21.2 % (13.4-35.0); Mean Corpuscular HGB Conc 34 % (32-34); Mean Corpuscular Volume 92 fl (84-94); Monocytes # (Auto) 0.8 K/mm3 (0.0-0.8); Monocytes % (Auto) 12.6 % (0.0-7.3); Platelet Count 138 K/mm3 (140-440); Red Blood Count 2.39 M/mm3 (3.65-5.03); Red Cell Distribution Width 18.9 % (13.2-15.2)
[2022-03-18 07:24] LABS: Albumin 2.6 g/dL (3.9-5); Calcium 7.5 mg/dL (8.4-10.2)
[2022-03-18] MEDS: BUDESONIDE 0.5 MG/2 ML NEBU IH SCH ×2 (07:37→19:38)
[2022-03-18] MEDS ORDERED: SODIUM CHLORIDE 0.9% 100 ML IV PRN (10:30)
[2022-03-18] MEDS: METOPROLOL TARTRATE 25 MG TAB PO SCH (12:10)
[2022-03-18] MEDS: TAMSULOSIN 0.4 MG CAP PO SCH (12:10)
[2022-03-18] MEDS: FUROSEMIDE 20 MG TAB PO SCH ×2 (12:11→22:38)
[2022-03-18] MEDS: SODIUM BICARBONATE 650 MG TAB PO SCH ×2 (12:11→22:38)
[2022-03-18] MEDS: FERROUS SULFATE 325 MG TAB PO SCH (12:11)
[2022-03-18] MEDS: FAMOTIDINE 20 MG/2 ML INJ IV SCH ×2 (12:12→22:38)
--- NOTE | 2022-03-18 12:37 | Consultation ---
History of Present Illness - Reason for Consult Consult date: 03/18/22 end stage renal disease Requesting physician: YENY RICARDO - History of Present Illness This is a 81 yo M with past medial history of hypertension, type 2 diabetes mellitus, advanced CKD progressing to ESRD on HD currently being dialyzed at [facility] on TTS schedule, who was scheduled for elevated AVG creation, however preop labs showed significant anemia with Hb as low as 5.7. patient was admitted for blood transfusion. renal consult is requested for management of ESRD/HD. Past History Past Medical History: dialysis, ESRD, hypertension, hyperlipidemia, hypothyroidism Past Surgical History: Other (AV fistula. Prostate surgery) Social history: denies: smoking, alcohol abuse, prescription drug abuse Family history: no significant family history Medications and Allergies Allergies Allergy/AdvReac Type Severity Reaction Status Date / Time amoxicillin Allergy Itching Verified 03/09/22 13:44 Home Medications Medication Instructions Recorded Confirmed Last Taken Type Tamsulosin [Flomax] 0.4 mg PO DAILY 08/14/13 03/09/22 03/16/22 History Levothyroxine [Synthroid] 100 mcg PO QAM 08/04/17 03/09/22 03/17/22 04:45 History Latanoprost 0.005% 0.05 mg OU HS 12/13/21 03/09/22 03/16/22 History Brimonidine 0.2% Ophthalmic Soln 1 drop OP TID 02/07/22 03/09/22 03/16/22 Rx Dorzolamide/Timolol(Nf) 2-0.5% 1 drops OU BID bottle 02/07/22 03/09/22 03/16/22 Rx [Cosopt (Nf)] Metoprolol [Lopressor TAB] 25 mg PO QDAY 02/07/22 03/09/22 03/17/22 04:45 History Rhopressa 0.02% Oph Soln 1 drop OP QHS 02/07/22 03/09/22 03/16/22 Rx Azelastine 0.1% (Nf) [Astelin (Nf)] 137 mcg NS BID 03/09/22 03/09/22 03/16/22 History Calcium Carbonate [Tums 500MG CHEW] 1,000 mg PO QHS 03/09/22 03/09/22 03/16/22 History Ferrous Sulfate [Feosol] 325 mg PO QDAY 03/09/22 03/09/22 03/16/22 History Fluticasone Propionate [Flovent 100 mcg IH PRN 03/09/22 03/09/22 03/16/22 History Diskus] Fluticasone/Umeclidin/Vilanter 1 each IH QDAY 03/09/22 03/09/22 03/16/22 History [Trelegy Ellipta 100-62.5-25] Furosemide [Lasix] 20 mg PO BID 03/09/22 03/09/22 03/16/22 History Insulin Lispro Protamin/Lispro 20 unit SQ BID 03/09/22 03/09/22 03/16/22 History [Humalog Mix 75-25 Vial] Ipratropium/Albuterol Sulfate 1 ampul IH Q4HR PRN 03/09/22 03/09/22 03/16/22 History [DUONEB *Not for PRN Use*] Simvastatin 20 mg PO QHS 03/09/22 03/09/22 03/16/22 History Sodium Bicarbonate 650 mg PO BID 03/09/22 03/09/22 03/16/22 History Telmisartan/Amlodipine 1 each PO QDAY 03/09/22 03/09/22 03/16/22 History [Telmisartan-Amlodipine 40-5 mg] prednisoLONE ACETATE 1% [Pred 1 drops OD TID 03/09/22 03/09/22 03/16/22 History Forte 1%] Active Meds: Active Medications Acetaminophen (Acetaminophen 325 Mg Tab) 650 mg PO Q4H PRN PRN Reason: Pain MILD(1-3)/Fever >100.5/PALMER Albuterol (Albuterol 2.5 Mg/3 Ml Nebu) 1 mg IH Q4HR PRN PRN Reason: Shortness Of Breath Budesonide (Budesonide 0.5 Mg/2 Ml Nebu) 0.5 mg IH Q12HRT [facility] Last Admin: 03/18/22 07:37 Dose: 0.5 mg Calcium Carbonate/Glycine (Calcium Carbonate 500 Mg Tab Chew) 1,000 mg PO QHS [facility] Last Admin: 03/17/22 22:03 Dose: 1,000 mg Docusate Sodium (Docusate Sodium 100 Mg Cap) 100 mg PO BID PRN PRN Reason: Constipation Famotidine (Famotidine 20 Mg/2 Ml Inj) 10 mg IV BID [facility] Last Admin: 03/18/22 12:12 Dose: Not Given Ferrous Sulfate (Ferrous Sulfate 325 Mg Tab) 325 mg PO QDAY [facility] Last Admin: 03/18/22 12:11 Dose: 325 mg Furosemide (Furosemide 20 Mg Tab) 20 mg PO BID [facility] Last Admin: 03/18/22 12:11 Dose: 20 mg Hydralazine HCl (Hydralazine 20 Mg/1 Ml Inj) 10 mg IV Q4HR PRN PRN Reason: Hypertension Last Admin: 03/18/22 05:37 Dose: 10 mg Sodium Chloride (Nacl 0.9% 1000 Ml) 1,000 mls @ 42 mls/hr IV DIRECT [facility] Last Admin: 03/17/22 07:02 Dose: 42 mls/hr Sodium Chloride (Nacl 0.9%) 100 mls @ 999 mls/hr IV MARK PRN PRN Reason: Hypotension Levothyroxine Sodium (Levothyroxine 100 Mcg Tab) 100 mcg PO DAILY@0600 [facility] Last Admin: 03/18/22 05:37 Dose: 100 mcg Metoprolol Tartrate (Metoprolol Tartrate 25 Mg Tab) 25 mg PO QDAY [facility] Last Admin: 03/18/22 12:10 Dose: 25 mg Morphine Sulfate (Morphine 2 Mg/1 Ml Inj) 2 mg IV Q4H PRN PRN Reason: Pain, Moderate (4-6) Morphine Sulfate (Morphine 4 Mg/1 Ml Inj) 4 mg IV Q4H PRN PRN Reason: Pain , Severe (7-10) Naloxone HCl (Naloxone 0.4 Mg/1 Ml Inj) 0.1 mg IV Q2MIN PRN PRN Reason: Res Rate </= 8 or 02 SAT < 92% Ondansetron HCl (Ondansetron 4 Mg/2 Ml Inj) 4 mg IV Q8H PRN PRN Reason: Nausea And Vomiting Pravastatin Sodium (Pravastatin 40 Mg Tab) 40 mg PO QHS [facility] Last Admin: 03/17/22 22:03 Dose: 40 mg Sodium Bicarbonate (Sodium Bicarbonate 650 Mg Tab) 650 mg PO BID [facility] Last Admin: 03/18/22 12:11 Dose: 650 mg Sodium Chloride (Sodium Chloride 0.9% 10 Ml Flush Syringe) 10 ml IV BID [facility] Last Admin: 03/18/22 12:11 Dose: 10 ml Sodium Chloride (Sodium Chloride 0.9% 10 Ml Flush Syringe) 10 ml IV PRN PRN PRN Reason: LINE FLUSH Tamsulosin HCl (Tamsulosin 0.4 Mg Cap) 0.4 mg PO DAILY [facility] Last Admin: 03/18/22 12:10 Dose: 0.4 mg Review of Systems Constitutional: fatigue, weakness Exam - Vital Signs Vital signs: Vital Signs Temp Pulse Resp BP Pulse Ox 99.7 F H 60 20 137/68 100 03/17/22 06:36 03/17/22 06:36 03/17/22 06:36 03/17/22 06:36 03/17/22 06:36 - General Appearance General appearance: well-developed, well-nourished, appears stated age EENT: ATNC, PERRL, mucous membranes moist Neck: Present: neck supple Respiratory: Clear to Ascultation Heart: regular, S1S2 Gastrointestinal: Present: normoactive bowel sounds Integumentary: no rash Neurologic: no focal deficit, alert and oriented x3, strength 5/5, CN 3-12 intact Psychiatric: mood/affect appropriate, cooperative Results - Lab Results 03/18/22 06:17 03/18/22 06:17 Most recent lab results Calcium 7.5 mg/dL (8.4-10.2) L 03/18/22 06:17 Magnesium 2.10 mg/dL (1.7-2.3) 03/18/22 06:17 Assessment and Plan - Patient Problems (1) Severe anemia Current Visit: No Status: Chronic Plan to address problem: Hb improved to > 7.6 after 3 PRBC transfusions. Will cont IV iron/SALIMA at his HD clinic. 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
[2022-03-18 13:12] LABS: Hepatitis B Surface Antigen Non-Reactive (Negative); Hepatitis C Virus Antibody Non-Reactive (NonReactive)
[2022-03-18] MEDS ORDERED: SODIUM CHLORIDE 0.9% 250ML 250 ML ONE (14:30)
--- NOTE | 2022-03-18 14:35 | Anesthesia Consultation ---
Anesthesia Consult and Med Hx Date of service: 03/18/22 - Airway Anesthetic Teeth Evaluation: Poor ROM Head & Neck: Adequate Mental/Hyoid Distance: Adequate Mallampati Class: Class II Intubation Access Assessment: Probably Good - Pre-Operative Health Status ASA Pre-Surgery Classification: ASA3 Proposed Anesthetic Plan: General, MAC Nerve Block: IS - Pulmonary Hx Smoking: Yes (FORMER SMOKER) Hx Asthma: Yes SOB: Yes (SOB DUE TO COPD) COPD: Yes Hx Pneumonia: Yes Hx Sleep Apnea: Yes - Cardiovascular System Hx Hypertension: Yes Hx Heart Attack/AMI: No - Central Nervous System Hx Psychiatric Problems: No - Endocrine Hx Renal Disease: Yes Hx End Stage Renal Disease: Yes (last HD 03/18/22) Hx Insulin Dependent Diabetes: Yes Hx Hypothyroidism: Yes - Hematic Hx Anemia: Yes (requiring transfusion) Hx Sickle Cell Disease: No - Other Systems Hx Alcohol Use: No Hx Substance Use: No Hx Cancer: Yes
[2022-03-18] MEDS: INSULIN LISPRO 100 UNIT/ML SUB-Q SCH (22:38)
[2022-03-18] MEDS: PRAVASTATIN 40 MG TAB PO SCH (22:38)
[2022-03-18] MEDS: CALCIUM CARBONATE 500 MG TAB CHEW PO SCH (22:38)
[2022-03-19] MEDS: LEVOTHYROXINE 100 MCG TAB PO SCH (06:26)
[2022-03-19] MEDS: hydrALAZINE 20 MG/1 ML INJ IV PRN (07:52)
--- NOTE | 2022-03-19 08:24 | Progress Note ---
Assessment and Plan Assessment and plan: -- Severe anemia/received blood transfusion/today Hb 7.6 Received 2 units PRBC per protocol, Hb improved from 5.7 -7.6 Closely monitor H&H and transfuse additional PRBC as needed Stool for occult blood to rule out GI causes of severe anemia --ESRD (end stage renal disease) On hemodialysis TTS Nephrology consulted, HD per schedule --Hypothyroidism (acquired) Resume home Synthroid, supportive care -- HTN (hypertension) Moderate control Resume home antihypertensives and as needed hydralazine closely monitor blood pressures --IDDM (insulin dependent diabetes mellitus) Accu-Cheks sliding scale coverage ADA diet Long-acting insulin as needed --BPH (benign prostatic hyperplasia) Continue tamsulosin and supportive care Closely monitor the patient and adjust management as needed --HLD (hyperlipidemia) Low-cholesterol diet, statin Supportive care -- Severe protein-calorie malnutrition Nutrition supplements and supportive care --Full code status Full CODE STATUS --DVT prophylaxis SCDs, no pharmacologic anticoagulation in view of severe anemia Closely monitor the patient and adjust management as needed Plan of care reviewed with the patient and his nurse Closely monitor the patient and adjust management as needed Plan of care reviewed with the patient and his daughter at bedside his nurse Also discussed with the case management 03/18/2022; New onset hemodialysis, outpatient HD chair Received 2 units PRBC Hb 7.6 today, nephrology following Bilingual patient's daughter at the bedside who communicated with the patient 03/19: Nephrology evaluation and recommendations DC planning per case, History Interval history: I have seen and examined the patient at the bedside Hospitalist Physical - Constitutional Vitals: Temp Pulse Resp BP Pulse Ox 99.2 F 68 20 177/52 97 03/19/22 05:02 03/19/22 07:52 03/19/22 05:02 03/19/22 07:52 03/19/22 05:02 General appearance: Present: no acute distress, well-nourished Results - Labs CBC & Chem 7: 03/18/22 06:17 03/18/22 06:17 Labs: Laboratory Last Values WBC 6.7 K/mm3 (4.5-11.0) 03/18/22 06:17 RBC 2.39 M/mm3 (3.65-5.03) L 03/18/22 06:17 Hgb 7.6 gm/dl (11.8-15.2) L 03/18/22 06:17 Hct 22.0 % (35.5-45.6) L 03/18/22 06:17 MCV 92 fl (84-94) 03/18/22 06:17 MCH 32 pg (28-32) 03/18/22 06:17 MCHC 34 % (32-34) 03/18/22 06:17 RDW 18.9 % (13.2-15.2) H 03/18/22 06:17 Plt Count 138 K/mm3 (140-440) L 03/18/22 06:17 Lymph % (Auto) 21.2 % (13.4-35.0) 03/18/22 06:17 Metcalfe % (Auto) 12.6 % (0.0-7.3) H 03/18/22 06:17 Eos % (Auto) 3.5 % (0.0-4.3) 03/18/22 06:17 Baso % (Auto) 0.9 % (0.0-1.8) 03/18/22 06:17 Lymph # (Auto) 1.4 K/mm3 (1.2-5.4) 03/18/22 06:17 Metcalfe # (Auto) 0.8 K/mm3 (0.0-0.8) 03/18/22 06:17 Eos # (Auto) 0.2 K/mm3 (0.0-0.4) 03/18/22 06:17 Baso # (Auto) 0.1 K/mm3 (0.0-0.1) 03/18/22 06:17 Seg Neutrophils % 61.8 % (40.0-70.0) 03/18/22 06:17 Seg Neutrophils # 4.1 K/mm3 (1.8-7.7) 03/18/22 06:17 Sodium 136 mmol/L (137-145) L 03/18/22 06:17 Potassium 3.6 mmol/L (3.6-5.0) 03/18/22 06:17 Chloride 100.8 mmol/L (98-107) 03/18/22 06:17 Carbon Dioxide 25 mmol/L (22-30) D 03/18/22 06:17 Anion Gap 14 mmol/L 03/18/22 06:17 BUN 30 mg/dL (9-20) H 03/18/22 06:17 Creatinine 5.1 mg/dL (0.8-1.3) H 03/18/22 06:17 Estimated GFR 11 ml/min 03/18/22 06:17 BUN/Creatinine Ratio 6 % 03/18/22 06:17 Glucose 120 mg/dL (75-100) H 03/18/22 06:17 POC Glucose 257 mg/dL (70-105) H 03/19/22 07:31 Calcium 7.5 mg/dL (8.4-10.2) L 03/18/22 06:17 Magnesium 2.10 mg/dL (1.7-2.3) 03/18/22 06:17 Total Bilirubin 0.60 mg/dL (0.1-1.2) 03/18/22 06:17 AST 29 units/L (5-40) 03/18/22 06:17 ALT 16 units/L (7-56) 03/18/22 06:17 Alkaline Phosphatase 53 units/L (35-129) 03/18/22 06:17 Total Protein 5.8 g/dL (6.3-8.2) L 03/18/22 06:17 Albumin 2.6 g/dL (3.9-5) L 03/18/22 06:17 Albumin/Globulin Ratio 0.8 % 03/18/22 06:17 Hepatitis A IgM Ab Non-reactive (NonReactive) 03/18/22 10:10 Hep Bs Antigen Non-reactive (Negative) 03/18/22 10:10 Hep B Core IgM Ab Non-reactive (NonReactive) 03/18/22 10:10 Hepatitis C Antibody Non-reactive (NonReactive) 03/18/22 10:10 Blood Type B POSITIVE 03/17/22 07:22 Antibody Screen Negative 03/17/22 07:22 Crossmatch See Detail 03/17/22 07:22 Salazar/IV: Voiding Method Toilet Active Medications - Current Medications Current Medications: Generic Name Dose Route Start Last Admin Trade Name Freq PRN Reason Stop Dose Admin Acetaminophen 650 mg 03/17/22 08:03 Acetaminophen 325 Mg Tab PO Q4H PRN Pain MILD(1-3)/Fever >100.5/PALMER Albuterol 1 mg 03/17/22 09:32 Albuterol 2.5 Mg/3 Ml Nebu IH Q4HR PRN Shortness Of Breath Budesonide 0.5 mg 03/17/22 20:00 03/18/22 19:38 Budesonide 0.5 Mg/2 Ml Nebu IH 0.5 mg Q12HRT NICOLASA Administration Calcium Carbonate/Glycine 1,000 mg 03/17/22 22:00 03/18/22 22:38 Calcium Carbonate 500 Mg Tab Chew PO 1,000 mg QHS NICOLASA Administration Docusate Sodium 100 mg 03/17/22 08:03 Docusate Sodium 100 Mg Cap PO BID PRN Constipation Famotidine 10 mg 03/17/22 10:00 03/18/22 22:38 Famotidine 20 Mg/2 Ml Inj IV 10 mg BID NICOLASA Administration Ferrous Sulfate 325 mg 03/17/22 10:00 03/18/22 12:11 Ferrous Sulfate 325 Mg Tab PO 325 mg QDAY NICOLASA Administration Furosemide 20 mg 03/17/22 10:00 03/18/22 22:38 Furosemide 20 Mg Tab PO 20 mg BID NICOLASA Administration Hydralazine HCl 10 mg 03/17/22 08:24 03/19/22 07:52 Hydralazine 20 Mg/1 Ml Inj IV 10 mg Q4HR PRN Administration Hypertension Sodium Chloride 1,000 mls @ 42 mls/hr 03/17/22 06:30 03/17/22 07:02 Nacl 0.9% 1000 Ml IV 42 mls/hr DIRECT NICOLASA Administration Sodium Chloride 100 mls @ 999 mls/hr 03/18/22 10:30 Nacl 0.9% IV MARK PRN Hypotension Insulin Human Lispro 0 unit 03/18/22 22:00 03/18/22 22:38 Insulin Lispro 100 Unit/Ml SUB-Q 2 unit ACHS NICOLASA Administration Protocol Levothyroxine Sodium 100 mcg 03/17/22 10:00 03/19/22 06:26 Levothyroxine 100 Mcg Tab PO 100 mcg DAILY@0600 NICOLASA Administration Metoprolol Tartrate 25 mg 03/17/22 10:00 03/18/22 12:10 Metoprolol Tartrate 25 Mg Tab PO 25 mg QDAY NICOLASA Administration Morphine Sulfate 2 mg 03/17/22 08:03 Morphine 2 Mg/1 Ml Inj IV Q4H PRN Pain, Moderate (4-6) Morphine Sulfate 4 mg 03/17/22 08:03 Morphine 4 Mg/1 Ml Inj IV Q4H PRN Pain , Severe (7-10) Naloxone HCl 0.1 mg 03/17/22 09:34 Naloxone 0.4 Mg/1 Ml Inj IV Q2MIN PRN Res Rate </= 8 or 02 SAT < 92% Ondansetron HCl 4 mg 03/17/22 09:35 Ondansetron 4 Mg/2 Ml Inj IV Q8H PRN Nausea And Vomiting Pravastatin Sodium 40 mg 03/17/22 22:00 03/18/22 22:38 Pravastatin 40 Mg Tab PO 40 mg QHS NICOLASA Administration Sodium Bicarbonate 650 mg 03/17/22 10:00 03/18/22 22:38 Sodium Bicarbonate 650 Mg Tab PO 650 mg BID NICOLASA Administration Sodium Chloride 10 ml 03/17/22 10:00 03/18/22 22:39 Sodium Chloride 0.9% 10 Ml Flush Syringe IV 10 ml BID NICOLASA Administration Sodium Chloride 10 ml 03/17/22 09:36 Sodium Chloride 0.9% 10 Ml Flush Syringe IV PRN PRN LINE FLUSH Tamsulosin HCl 0.4 mg 03/17/22 10:00 03/18/22 12:10 Tamsulosin 0.4 Mg Cap PO 0.4 mg DAILY NICOLASA Administration Nutrition/Malnutrition Assess - Dietary Evaluation Nutrition/Malnutrition Findings: Nutrition Notes Start: 03/17/22 15:14 Freq: Status: Active Protocol: Document 03/18/22 10:24 ANDREW (Rec: 03/18/22 10:37 ANDREW [id number]) Nutrition Notes Initial or Follow up Brief Note Current Diagnosis CKD (stage V CKD),COPD, Diabetes,Hypertension, Malnutrition,Hyperlipidemia Other Pertinent Diagnosis ESRD+HD, Anemia, Throat Cancer , GERD, Hypothyroidism. Current Diet Renal Diet (since L 03/17), D suppl (from L 03/18). Height 5 ft 2 in Weight 72.575 kg [place] Body Weight (kg) 53.63 BMI 29.2 Weight change and time frame No body weight change reported in 1 day. Weight Status Overweight Subjective/Other Information RD consult for malnutrition assessment. Diet continues as prescribed, Pt's PO intake of meals has been Poor (<50%) and Fairly tolerated, according to ADL notes. I will prescribe dietary supplements to compensate for poor or insufficient PO intake of meals during LOS. Pt is on Nasal Cannula, O2 saturation @ 97%, according to Physical Assessment History notes. Percent of energy/protein needs met: Prescribed Renal Diet provides for energy/protein needs (2, 072 Kcal/77 g) during LOS; additionally, Dietary Supplements will compensate for possible poor or insufficient PO intake of meals with 850 Kcal and 38 g of protein. #1 Nutrition Diagnosis Inadequate protein-energy intake Etiology Ongoing and concomitant chronic metabolic conditions. As Evidenced by Signs and Symptoms Pt's PO intake of meals has been Poor (<50%) and Fairly tolerated, according to ADL notes. Is patient on ventilator? No Is Patient Ambulatory and/or Out of Bed Yes REE-(O'Brien-St. Jeor-ambulatory/OOB) [ 1696.500 NUTR.MSJOOB] Kcal/Kg value to use for calculation 17 Approximate Energy Requirements Using 1234 kcal/Kg Calculation Used for Recommendations Kcal/kg Additional Notes Protein: >1.2 g/Kg ABW; >88 g/ day. Fluids: 1 ml/Kcal, or as per MD. Nutrition Intervention Change Diet Order: Continue Renal Diet. Add Supplement/Snack (indicate name/kcal Start 8 fl oz Nepro w/ /protein ) CARBSTEADY; BID. Provides kCal: 480 Provides Protein (gm) 38 Goal #1 Compensate, through dietary supplementation, for possible poor or insufficient PO intake of meals during LOS. Follow-Up By: 03/24/22 Additional Comments Continue monitoring food tolerance, %PO intake of meals , dietary supplements, and BM.
[2022-03-19] MEDS: BUDESONIDE 0.5 MG/2 ML NEBU IH SCH (09:15)
[2022-03-19] MEDS: INSULIN LISPRO 100 UNIT/ML SUB-Q SCH ×4 (09:50→17:04)
[2022-03-19] MEDS ORDERED: FAMOTIDINE 10 MG TAB PO SCH (10:00)
[2022-03-19] MEDS: METOPROLOL TARTRATE 25 MG TAB PO SCH (10:08)
[2022-03-19] MEDS: FERROUS SULFATE 325 MG TAB PO SCH (10:08)
[2022-03-19] MEDS: TAMSULOSIN 0.4 MG CAP PO SCH (10:08)
[2022-03-19] MEDS: FUROSEMIDE 20 MG TAB PO SCH (10:08)
[2022-03-19] MEDS ORDERED: LIDOCAINE MPF (2%) 20 MG/1 ML VIAL 5 ML ONE (10:09)
[2022-03-19] MEDS: SODIUM BICARBONATE 650 MG TAB PO SCH (10:09)
[2022-03-19] MEDS ORDERED: propofoL 200 MG/20 ML VIAL IV ONE (10:09)
--- NOTE | 2022-03-19 10:12 | Anesthesia Day of Surgery ---
Anesthesia Day of Surgery - Day of Surgery Patient Examined: Yes Patient H&P Reviewed: Yes Patient is NPO: Yes (Son present at BS)
[2022-03-19] MEDS ORDERED: BUPIVACAINE/PF (0.25%) 2.5 MG/ML 30 ML VIAL INFILTRATI ONE (10:23)
[2022-03-19] MEDS ORDERED: dexAMETHasone 4 MG/ML VIAL ONE (10:24)
[2022-03-19] MEDS ORDERED: MIDAZOLAM 2 MG/2 ML INJ ONE (10:26)
[2022-03-19] MEDS ORDERED: fentaNYL 100 MCG/2 ML INJ ONE (10:26)
[2022-03-19] MEDS ORDERED: HEPARIN 10,000 UNITS/10 ML VIAL ONE (11:04)
[2022-03-19] MEDS ORDERED: BUPIVACAINE/PF (0.5%) 5 MG/1 ML 30 ML VIAL INFILTRATI ONE (11:04)
[2022-03-19] MEDS ORDERED: SODIUM CHLORIDE P/F VIAL 10 ML 10 ML ONE (11:04)
[2022-03-19] MEDS ORDERED: rifAMPin 600 MG VIAL ONE (11:05)
[2022-03-19] MEDS ORDERED: SODIUM CHLORIDE 0.9% 250ML 250 ML ONE (11:05)
[2022-03-19] MEDS ORDERED: SODIUM CHLORIDE 0.9% 500 ML 500 ML ONE (11:05)
[2022-03-19] MEDS: SODIUM CHLORIDE 0.9% 1000 ML 1,000 ML IV SCH (11:20)
[2022-03-19] MEDS ORDERED: ePHEDrine SULFATE 50 MG/1 ML INJ ONE (11:32)
[2022-03-19] MEDS ORDERED: HEPARIN 10,000 UNITS/10 ML VIAL IV ONE (11:53)
[2022-03-19] MEDS ORDERED: rifAMPin 600 MG VIAL IV ONE (11:54)
[2022-03-19] MEDS ORDERED: SODIUM CHLORIDE 0.9% IRR 1,500 ML BOTTLE IR ONE (11:55)
[2022-03-19] MEDS ORDERED: SODIUM CHLORIDE 0.9% 250 ML IVPB IV ONE (11:59)
[2022-03-19] MEDS ORDERED: SODIUM CHLORIDE 0.9% P/F 10 ML VIAL IV ONE (12:00)
[2022-03-19] MEDS ORDERED: SODIUM CHLORIDE 0.9% 500 ML IVPB IRRIGATION ONE (12:00)
--- NOTE | 2022-03-19 12:59 | Operative Report ---
Operative Report Operative Report: Date of procedure: 03/19/2022 Pre-operative diagnosis: End-Stage Renal Disease Post-operative diagnosis: Same Procedure(s): 1. Creation of Left Brachial Artery to Left Axillary Vein AV Graft with 5 mm Bovine Graft Artergraft Surgeon: Stalin Munguia MD Automatic Nailing Machine Operator: None Anesthesia: Regional/MAC EBL: Minimal Counts: Correct Complications: None Condition: Stable Findings: Successful Creation of Left Arm AV Graft with Palpable Thrill and Palpable Radial Pulse at the Completion of the Case. Specimen: None Indication: The patient is an 81-year-old male with a history of end-stage renal disease who is currently on hemodialysis through a right internal jugular permacath. He is in need of permanent dialysis access and requires creation of a left arm arteriovenous graft. He was given the risk, benefits, and alternative procedures and consented to the procedure. Description of Procedure: Prior to being transported to the operating room the patient had a regional block of the left arm performed. After the block was performed the patient was transported to the operating room and adequately sedated. The patient's left arm was then prepped and draped in normal sterile fashion. A longitudinal incision was made on the medial aspect of the arm just proximal to the antecubital crease and carried down to the brachial artery using sharp dissection. The brachial artery was dissected out circumferentially both proximally and distally and controlled with vessel loops. A second incision was created in longitudinal fashion on the medial aspect of the arm just distal to the axillary crease and carried down to the axillary vein using sharp dissection. Axillary vein was dissected out circumferentially and controlled with a vessel loop. I then used a Karol-Wick tunneler to tunnel from the brachial artery incision to the axillary vein incision and then pulled an 5 mm bovine through the tunnel. I infused with heparinized saline to ensure that it was not twisted or kinked. I put the brachial artery vessel loops on tension controlling the flow and then created an arteriotomy using an 11 blade and Dozier scissors. I beveled the graft and created an end-to-side anastomosis using 6-0 Prolene running fashion. I clamped the graft just proximal to the anastomosis and then released the vessel loops restoring flow in the brachial artery. I placed quick clot in incision to achieve hemostasis. I cut the proximal end of the graft to the appropriate length and beveled the graft in preparation for a venous anastomosis. I controlled the axillary vein a Satinsky clamp and created a venotomy using an 11 blade and Dozier scissors. I created an end to side anastomosis using a 6-0 Prolene in running fashion. Prior to completing the anastomosis I flushed the graft to ensure there was no thrombus and then completed the anastamosis. I released all clamps allowing flow into the AV graft which had an excellent thrill. I packed the wound with quick clot to achieve hemostasis. I closed both wounds in 2 layers using 3-0 Vicryl in running fashion in the deep dermal layer and 4-0 Monocryl in running fashion the subcuticular layer. I dressed both wounds with Dermabond. The patient tolerated the procedure well all sponge, needle, and instrument counts were correct. The patient was taken to recovery in stable condition.
--- NOTE | 2022-03-19 13:01 | Event Note ---
Date: 03/19/22 Patient underwent successful creation of left arm arteriovenous graft without complication during the procedure. Okay to discharge home today from a vascular surgery standpoint.
[2022-03-19] MEDS ORDERED: DEXTROSE 50% IN WATER (25GM) 50 ML SYRINGE IV ONE ×2 (13:19→13:20)
[2022-03-19 13:44] LABS: Calcium 6.8 mg/dL (8.4-10.2)
--- NOTE | 2022-03-19 14:54 | Post Anesthesia Evaluation ---
- Post Anesthesia Evaluation Patient Participated: Yes Airway Patent: Yes Stable Respiratory Function: Yes Nausea/Vomiting: No Temp > 96.8F: Yes Pain Manageable: Yes Adequeate Hydration: Yes Anesthesia Complications: No Block Receding Appropriately: Yes Patient on Ventilator: No
[2022-03-19 15:12] VITALS: BP 154/56
--- NOTE | 2022-03-19 16:35 | Discharge Summary ---
Providers - Providers Date of Admission: 03/17/22 09:19 Date of discharge: 03/19/22 Attending physician: YENY RICARDO 03/17/22 08:21 Consult to Physician [CONS] Routine Comment: called office/ [place] Consulting Provider: KATHRYN ARNDT Physician Instructions: Reason For Exam: ESRD on hemodialysis 03/17/22 08:22 Consult to Physician [CONS] Routine Comment: noted/ vicenta Consulting Provider: MIKAELA WEI Physician Instructions: Reason For Exam: For left arm AV graft creation 03/17/22 18:39 Consult to Dietitian/Nutrition [CONS] Routine Physician Instructions: Reason For Exam: Malnutrition Reason for Consult: Malnutrition Primary care physician: GAYLA PERDOMO Hospitalization Reason for admission: For creation of left AV graft/severe anemia Procedures: Creation of Left Brachial Artery to Left Axillary Vein AV Graft with 5 mm Bovine Graft Artergraft Blood transfusion Hemodialysis per schedule Hospital course: -- Severe anemia/received blood transfusion/today Hb 7.6 Received 2 units PRBC per protocol, Hb improved from 5.7 -7.6 Closely monitor H&H and transfuse additional PRBC as needed Stool for occult blood to rule out GI causes of severe anemia --ESRD (end stage renal disease)on HD TTS On hemodialysis TTS Nephrology consulted, HD per schedule --Hypothyroidism (acquired) Resume home Synthroid, supportive care -- HTN (hypertension) Moderate control Resume home antihypertensives and as needed hydralazine closely monitor blood pressures --IDDM (insulin dependent diabetes mellitus) Accu-Cheks sliding scale coverage ADA diet Long-acting insulin as needed --BPH (benign prostatic hyperplasia) Continue tamsulosin and supportive care Closely monitor the patient and adjust management as needed --HLD (hyperlipidemia) Low-cholesterol diet, statin Supportive care -- Severe protein-calorie malnutrition Nutrition supplements and supportive care --DVT prophylaxis SCDs, no pharmacologic anticoagulation in view of severe anemia --Full code status Full CODE STATUS Disposition: 01 HOME / SELF CARE / HOMELESS Final Discharge Diagnosis (Prints w/discharge instructions): Severe anemia received 2 unit PRBC transfusion. End-stage renal disease on hemodialysis on TTS. Hypothyroidism. Hypertension. Insulin-dependent diabetes. Benign prostatic hypertrophy. Hyperlipidemia. Severe protein calorie malnutrition. DVT prophylaxis Time spent for discharge: 40 min Core Measure Documentation - Palliative Care Palliative Care/ Comfort Measures: Not Applicable - Core Measures Any of the following diagnoses?: none Exam - Constitutional Vitals: Temp Pulse Resp BP Pulse Ox 97.7 F 71 19 154/56 99 03/19/22 14:45 03/19/22 14:45 03/19/22 14:45 03/19/22 14:45 03/19/22 14:45 General appearance: Present: no acute distress, well-nourished - EENT Eyes: Present: PERRL, EOM intact - Neck Neck: Present: supple, normal ROM - Respiratory Respiratory effort: normal Respiratory: bilateral: diminished, negative: rales, rhonchi, wheezing - Cardiovascular Rhythm: regular Heart Sounds: Present: S1 & S2 - Extremities Extremities: no ischemia, No edema - Abdominal General gastrointestinal: Present: soft, non-tender, non-distended, normal bowel sounds - Integumentary Integumentary: Present: clear, warm - Musculoskeletal Musculoskeletal: strength equal bilaterally - Psychiatric Psychiatric: appropriate mood/affect, cooperative - Neurologic Neurologic: moves all extremities Plan Activity: advance as tolerated, fall precautions Diet: diabetic, renal Additional Instructions: If you have worsening symptoms contact MD or go to the nearest emergency room as needed. Fall precautions. Follow the postoperative instructions given to you regarding your left arm. Follow renal/hemodialysis per schedule TTS, your next dialysis is tomorrow 03/20/2022. Strongly advised to comply with medications, diet, follow-up visits and hemodialysis per schedule Follow up with: MIKAELA WEI MD [Staff Physician] - 14 Days KATHRYN ARNDT MD [Staff Physician] - 7 Days Prescriptions: HYDROcodone/APAP 5-325 [[place] 5/325] 1 each PO Q4HR PRN #24 tablet PRN Reason: Pain
== END 2022-03-19 18:40 | disposition home or self-care (01) | DRG 673 ==
LOC: OR 05:46 → IMCU 09:19 → 3A 15:35
PROVIDERS: ADMIT Internal Medicine; ATTEND Internal Medicine
PROC: 30233N1 Transfusion of Nonautologous Red Blood Cells into Peripheral Vein, Percutaneous Approach (ICD-10-PCS; 2022-03-17)
PROC: 5A1D70Z Performance of Urinary Filtration, Intermittent, Less than 6 Hours Per Day (ICD-10-PCS; 2022-03-18)
PROC: 03180KD Bypass Left Brachial Artery to Upper Arm Vein with Nonautologous Tissue Substitute, Open Approach (ICD-10-PCS; principal; 2022-03-19)
DX: I12.0 Hypertensive chronic kidney disease with stage 5 chronic kidney disease or end stage renal disease (principal); N18.6 End stage renal disease; E43 Unspecified severe protein-calorie malnutrition; D64.9 Anemia, unspecified; E11.22 Type 2 diabetes mellitus with diabetic chronic kidney disease; E03.9 Hypothyroidism, unspecified; N40.0 Benign prostatic hyperplasia without lower urinary tract symptoms; E78.2 Mixed hyperlipidemia; Z68.29 Body mass index [BMI] 29.0-29.9, adult; J44.9 Chronic obstructive pulmonary disease, unspecified; Z88.8 Allergy status to other drugs, medicaments and biological substances; M19.90 Unspecified osteoarthritis, unspecified site; Z85.21 Personal history of malignant neoplasm of larynx; Z79.4 Long term (current) use of insulin
CPT/HCPCS: 36415; 36430; 64450; 80048; 80053; 80074; 82962; 83735; 85014; 85018; 85025; 85027; 86850; 86900; 86901; 86920; 87116; 94640; 94760; G0378; J3490; Q9967; C1757; C1768; J0360; J1100; J1644; J1815; J2250; J2704; J3010; J7030; J7040; J7050; P9016

== ENCOUNTER 2022-04-01 11:18 | Emergency (ER) | payer MEDICARE ==
[2022-04-01] MEDS ORDERED: ACETAMINOPHEN 325 MG TAB PO ONE (13:28)
--- NOTE | 2022-04-01 13:28 | Emergency Department Report ---
ED General Adult HPI - General Chief complaint: Dyspnea/Respdistress Stated complaint: SOB/LOW BLOOD COUNT Time Seen by Provider: 04/01/22 12:25 Source: EMS Mode of arrival: Stretcher Limitations: Language Barrier - History of Present Illness Initial comments: 81 yo male with history of diabetes, end-stage renal disease, we cannot comment, question was currently old when he can bring him in should be a problem BNP, end-stage renal disease, as well as anemia presents to the emergency department after being found to have a hemoglobin of 6 while in dialysis today. Dialysis center called EMS to have him transported to the hospital for probable transf usion. Patient denies any complaints, currently. Patient is from [place], so his son is at the bedside to help translate. Patient denies weakness, chest pain, abdominal pain, nausea, vomiting, or diarrhea. Patient denies cough or fever. Patient denies any abnormal bleeding, including no rectal bleeding or dark stools. Severity scale (0 -10): 4 - Related Data Home Medications Medication Instructions Recorded Confirmed Last Taken Tamsulosin [Flomax] 0.4 mg PO DAILY 08/14/13 03/09/22 03/16/22 Levothyroxine [Synthroid] 100 mcg PO QAM 08/04/17 03/09/22 03/17/22 04:45 Latanoprost 0.005% 0.05 mg OU HS 12/13/21 03/09/22 03/16/22 Metoprolol [Lopressor TAB] 25 mg PO QDAY 02/07/22 03/09/22 03/17/22 04:45 Azelastine 0.1% (Nf) [Astelin (Nf)] 137 mcg NS BID 03/09/22 03/09/22 03/16/22 Calcium Carbonate [Tums 500MG CHEW] 1,000 mg PO QHS 03/09/22 03/09/22 03/16/22 Ferrous Sulfate [Feosol] 325 mg PO QDAY 03/09/22 03/09/22 03/16/22 Fluticasone Propionate [Flovent 100 mcg IH PRN 03/09/22 03/09/22 03/16/22 Diskus] Fluticasone/Umeclidin/Vilanter 1 each IH QDAY 03/09/22 03/09/22 03/16/22 [Trelegy Ellipta 100-62.5-25] Furosemide [Lasix] 20 mg PO BID 03/09/22 03/09/22 03/16/22 Insulin Lispro Protamin/Lispro 20 unit SQ BID 03/09/22 03/09/22 03/16/22 [Humalog Mix 75-25 Vial] Ipratropium/Albuterol Sulfate 1 ampul IH Q4HR PRN 03/09/22 03/09/22 03/16/22 [DUONEB *Not for PRN Use*] Simvastatin 20 mg PO QHS 03/09/22 03/09/22 03/16/22 Sodium Bicarbonate 650 mg PO BID 03/09/22 03/09/22 03/16/22 Telmisartan/Amlodipine 1 each PO QDAY 03/09/22 03/09/22 03/16/22 [Telmisartan-Amlodipine 40-5 mg] prednisoLONE ACETATE 1% [Pred 1 drops OD TID 03/09/22 03/09/22 03/16/22 Forte 1%] Previous Rx's Medication Instructions Recorded Last Taken Type Brimonidine 0.2% Ophthalmic Soln 1 drop OP TID 02/07/22 03/16/22 Rx Dorzolamide/Timolol(Nf) 2-0.5% 1 drops OU BID bottle 02/07/22 03/16/22 Rx [Cosopt (Nf)] Rhopressa 0.02% Oph Soln 1 drop OP QHS 02/07/22 03/16/22 Rx HYDROcodone/APAP 5-325 [[place] 1 each PO Q4HR PRN #24 tablet 03/19/22 Unknown Rx 5/325] levoFLOXacin [Levaquin] 750 mg PO QDAY #7 tablet 04/01/22 Unknown Rx Allergies Allergy/AdvReac Type Severity Reaction Status Date / Time amoxicillin Allergy Itching Verified 04/01/22 11:39 ED Review of Systems ROS: Stated complaint: SOB/LOW BLOOD COUNT Other details as noted in HPI Comment: All other systems reviewed and negative Constitutional: denies: chills, fever, weakness Eyes: denies: eye pain, eye discharge, vision change ENT: denies: ear pain, throat pain Respiratory: denies: cough, shortness of breath, wheezing Cardiovascular: denies: chest pain, palpitations Endocrine: no symptoms reported Gastrointestinal: denies: abdominal pain, nausea, diarrhea Genitourinary: denies: urgency, dysuria Musculoskeletal: denies: back pain, joint swelling, arthralgia Skin: denies: rash, lesions Neurological: denies: headache, weakness, paresthesias Psychiatric: denies: anxiety, depression Hematological/Lymphatic: denies: easy bleeding, easy bruising ED Past Medical Hx - Past Medical History Previous Medical History?: Yes Hx Hypertension: Yes Hx Heart Attack/AMI: No Hx Diabetes: Yes Hx GERD: Yes Hx Renal Disease: Yes Hx Sickle Cell Disease: No Hx Arthritis: Yes (AMBULATES WITH CANE) Hx Headaches / Migraines: No Hx Asthma: Yes Hx COPD: Yes Hx Tuberculosis: No Hx HIV: No Additional medical history: family unsure of hx pt unable to speak, throat cancer and post treatment had difficulty digesting his food this and put on Creon, elevated cholesterol - Surgical History Additional Surgical History: "Prostate surgery" - Social History Smoking Status: Former Smoker - Medications Home Medications: Home Medications Medication Instructions Recorded Confirmed Last Taken Type Tamsulosin [Flomax] 0.4 mg PO DAILY 08/14/13 03/09/22 03/16/22 History Levothyroxine [Synthroid] 100 mcg PO QAM 08/04/17 03/09/22 03/17/22 04:45 History Latanoprost 0.005% 0.05 mg OU HS 12/13/21 03/09/22 03/16/22 History Brimonidine 0.2% Ophthalmic Soln 1 drop OP TID 02/07/22 03/09/22 03/16/22 Rx Dorzolamide/Timolol(Nf) 2-0.5% 1 drops OU BID bottle 02/07/22 03/09/22 03/16/22 Rx [Cosopt (Nf)] Metoprolol [Lopressor TAB] 25 mg PO QDAY 02/07/22 03/09/22 03/17/22 04:45 History Rhopressa 0.02% Oph Soln 1 drop OP QHS 02/07/22 03/09/22 03/16/22 Rx Azelastine 0.1% (Nf) [Astelin (Nf)] 137 mcg NS BID 03/09/22 03/09/22 03/16/22 History Calcium Carbonate [Tums 500MG CHEW] 1,000 mg PO QHS 03/09/22 03/09/22 03/16/22 History Ferrous Sulfate [Feosol] 325 mg PO QDAY 03/09/22 03/09/22 03/16/22 History Fluticasone Propionate [Flovent 100 mcg IH PRN 03/09/22 03/09/22 03/16/22 History Diskus] Fluticasone/Umeclidin/Vilanter 1 each IH QDAY 03/09/22 03/09/22 03/16/22 History [Trelegy Ellipta 100-62.5-25] Furosemide [Lasix] 20 mg PO BID 03/09/22 03/09/22 03/16/22 History Insulin Lispro Protamin/Lispro 20 unit SQ BID 03/09/22 03/09/22 03/16/22 History [Humalog Mix 75-25 Vial] Ipratropium/Albuterol Sulfate 1 ampul IH Q4HR PRN 03/09/22 03/09/22 03/16/22 History [DUONEB *Not for PRN Use*] Simvastatin 20 mg PO QHS 03/09/22 03/09/22 03/16/22 History Sodium Bicarbonate 650 mg PO BID 03/09/22 03/09/22 03/16/22 History Telmisartan/Amlodipine 1 each PO QDAY 03/09/22 03/09/22 03/16/22 History [Telmisartan-Amlodipine 40-5 mg] prednisoLONE ACETATE 1% [Pred 1 drops OD TID 03/09/22 03/09/22 03/16/22 History Forte 1%] HYDROcodone/APAP 5-325 [[place] 1 each PO Q4HR PRN #24 tablet 03/19/22 Unknown Rx 5/325] levoFLOXacin [Levaquin] 750 mg PO QDAY #7 tablet 04/01/22 Unknown Rx ED Physical Exam - General Limitations: Language Barrier General appearance: alert, in no apparent distress, obese - Head Head exam: Present: atraumatic, normocephalic - Eye Eye exam: Present: normal appearance, PERRL - ENT ENT exam: Present: mucous membranes moist - Neck Neck exam: Present: normal inspection - Respiratory Respiratory exam: Present: normal lung sounds bilaterally. Absent: respiratory distress, wheezes, rales, rhonchi - Cardiovascular Cardiovascular Exam: Present: regular rate, normal rhythm. Absent: systolic murmur, diastolic murmur, rubs, gallop - GI/Abdominal GI/Abdominal exam: Present: soft, normal bowel sounds. Absent: distended, tenderness, guarding - Rectal Rectal exam: Present: deferred - Extremities Exam Extremities exam: Present: pedal edema (1+ bilaterally), joint swelling (Left upper extremity swelling where fistula was placed, recently. No tenderness) - Back Exam Back exam: Present: normal inspection - Neurological Exam Neurological exam: Present: alert, oriented X3, CN II-XII intact - Psychiatric Psychiatric exam: Present: normal affect, normal mood - Skin Skin exam: Present: warm, dry, intact, normal color, pallor. Absent: rash ED Course Vital Signs 04/01/22 04/01/22 04/01/22 11:33 11:59 12:50 Temperature 101.3 F H 99.9 F H Pulse Rate 88 84 86 Respiratory 16 28 H 22 Rate Blood Pressure 143/80 Blood Pressure 190/69 143/80 179/73 [Left] O2 Sat by Pulse 92 99 100 Oximetry 04/01/22 04/01/22 04/01/22 15:06 17:41 17:56 Temperature 99.0 F 98.2 F 98.5 F Pulse Rate 79 76 75 Respiratory 18 20 20 Rate Blood Pressure 164/62 153/60 Blood Pressure 169/69 [Left] O2 Sat by Pulse 100 100 100 Oximetry 04/01/22 04/01/22 04/01/22 18:14 18:26 18:46 Temperature 98.5 F 98.5 F Pulse Rate 75 73 73 Respiratory 17 18 18 Rate Blood Pressure 153/60 162/59 Blood Pressure 154/59 [Left] O2 Sat by Pulse 100 99 100 Oximetry - Reevaluation(s) Reevaluation #1: 04/01/22 19:51 Patient has completed his blood transfusion, and still has no complaints. Patient will be discharged home with antibiotics will go to dialysis, tomorrow. ED Medical Decision Making - Lab Data Result diagrams: 04/01/22 14:20 Critical care attestation.: If time is entered above; I have spent that time in minutes in the direct care of this critically ill patient, excluding procedure time. ED Disposition Clinical Impression: Infiltrate of middle lobe of right lung present on imaging study Anemia Qualifiers: Anemia type: due to chronic kidney disease Chronic kidney disease stage: on c hronic dialysis Qualified Code(s): N18.6 - End stage renal disease; D63.1 - Anemia in chronic kidney disease; Z99.2 - Dependence on renal dialysis Disposition: 01 HOME / SELF CARE / HOMELESS Is pt being admited?: No Condition: Stable Instructions: Community-Acquired Pneumonia, Adult, Blood Transfusion, Adult, Care After, [id number], Hematocrit Test Prescriptions: levoFLOXacin [Levaquin] 750 mg PO QDAY #7 tablet Referrals: PRIMARY CARE [Primary Care Provider] - 3-5 Days Time of Disposition: 19:54
--- NOTE | 2022-04-01 14:14 | XRay Report ---
CHEST 1 VIEW INDICATION: fever, r/o pneumonia. COMPARISON: 12/19/2021 FINDINGS: SUPPORT DEVICES: Stable satisfactory device positioning. HEART: Stable cardiomegaly. LUNGS/PLEURA: Diffuse interstitial prominence with superimposed patchy airspace disease greatest in t he right upper and lower lobes. There may also be a trace effusion on the right. ADDITIONAL FINDINGS: None. IMPRESSION: 1. Lung findings as above could be seen with evolving patchy pneumonia primarily in the right lung, p ossibly with mild superimposed edema. Signer Name: Ambrocio Ricci MD Signed: 04/01/2022 2:10 PM Workstation Name: [id number]
[2022-04-01 14:59] LABS: Eosinophils # (Auto) 0.1 K/mm3 (0.0-0.4); Eosinophils % (Auto) 0.6 % (0.0-4.3); Monocytes # (Auto) 1.2 K/mm3 (0.0-0.8); Monocytes % (Auto) 10.9 % (0.0-7.3)
[2022-04-01 15:13] LABS: Mucus,Urine FEW /HPF
[2022-04-01 15:15] LABS: Bilirubin,Urine Negative (Negative); Blood,Urine 3+ (Negative); Color,Urine Yellow (Yellow); Protein,Urine 300 mg/dL mg/dL (Negative)
[2022-04-01 15:57] LABS: Hemoglobin 6.1 gm/dl (11.8-15.2); Mean Corpuscular Volume 95 fl (84-94)
[2022-04-01 15:58] LABS: Basophils % (Auto) 0.6 % (0.0-1.8); Lymphocytes # (Auto) 1.6 K/mm3 (1.2-5.4); Lymphocytes % (Auto) 14.9 % (13.4-35.0); Mean Corpuscular HGB Conc 34 % (32-34); Platelet Count 134 K/mm3 (140-440)
[2022-04-01] MEDS ORDERED: SODIUM CHLORIDE 0.9% 500 ML 500 ML IV ONE (16:21)
[2022-04-01] MEDS ORDERED: diphenhydrAMINE 50 MG/ML VIAL IV ONE (16:21)
[2022-04-01] MEDS ORDERED: levoFLOXacin 750 MG TAB PO ONE (16:24)
[2022-04-01 20:25] VITALS: BP 166/67
== END 2022-04-01 20:26 | disposition home or self-care (01) ==
LOC: ED 11:18
DX: D64.9 Anemia, unspecified (principal); R91.8 Other nonspecific abnormal finding of lung field; I10 Essential (primary) hypertension; E11.9 Type 2 diabetes mellitus without complications; K21.9 Gastro-esophageal reflux disease without esophagitis; N28.9 Disorder of kidney and ureter, unspecified; M19.90 Unspecified osteoarthritis, unspecified site; J45.909 Unspecified asthma, uncomplicated; Z87.891 Personal history of nicotine dependence; Z91.09 Other allergy status, other than to drugs and biological substances; Z79.899 Other long term (current) drug therapy
CPT/HCPCS: 36415; 36430; 71045; 81001; 85025; 86850; 86900; 86901; 86920; 99284; J1200; J7040; P9016

== ENCOUNTER 2022-04-14 13:07 | Emergency (ER) | payer MEDICARE ==
[2022-04-14 15:04] LABS: Basophils # (Auto) 0.1 K/mm3 (0.0-0.1); Basophils % (Auto) 1.1 % (0.0-1.8); Eosinophils # (Auto) 0.3 K/mm3 (0.0-0.4); Hemoglobin 6.6 gm/dl (11.8-15.2); Lymphocytes # (Auto) 1.5 K/mm3 (1.2-5.4); Lymphocytes % (Auto) 17.9 % (13.4-35.0); Mean Corpuscular HGB Conc 34 % (32-34); Mean Corpuscular Volume 94 fl (84-94); Monocytes # (Auto) 0.7 K/mm3 (0.0-0.8); Monocytes % (Auto) 8.2 % (0.0-7.3); Platelet Count 150 K/mm3 (140-440); Red Blood Count 2.05 M/mm3 (3.65-5.03); Red Cell Distribution Width 18.7 % (13.2-15.2)
[2022-04-14 15:08] LABS: Hematocrit 19.4 % (35.5-45.6)
[2022-04-14 15:09] LABS: Albumin 2.8 g/dL (3.9-5); Calcium 7.9 mg/dL (8.4-10.2)
[2022-04-14 15:25] LABS: INR 0.93 (0.87-1.13)
[2022-04-14 15:26] LABS: Partial Thromboplastin Time 32.2 Sec. (24.2-36.6)
[2022-04-14] MEDS ORDERED: CALCIUM GLUCONATE 2,000 MG in SODIUM CHLORIDE 0.9% 100 ML IV ONE (16:49)
[2022-04-14] MEDS ORDERED: SODIUM CHLORIDE 0.9% 500 ML 500 ML IV ONE (16:49)
--- NOTE | 2022-04-14 17:49 | Emergency Department Report ---
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 Denies any symptoms. History of multiple transfusions. - Related Data Home Medications Medication Instructions Recorded Confirmed Last Taken Tamsulosin [Flomax] 0.4 mg PO DAILY 08/14/13 03/09/22 03/16/22 Levothyroxine [Synthroid] 100 mcg PO QAM 08/04/17 03/09/22 03/17/22 04:45 Latanoprost 0.005% 0.05 mg OU HS 12/13/21 03/09/22 03/16/22 Metoprolol [Lopressor TAB] 25 mg PO QDAY 02/07/22 03/09/22 03/17/22 04:45 Azelastine 0.1% (Nf) [Astelin (Nf)] 137 mcg NS BID 03/09/22 03/09/22 03/16/22 Calcium Carbonate [Tums 500MG CHEW] 1,000 mg PO QHS 03/09/22 03/09/22 03/16/22 Ferrous Sulfate [Feosol] 325 mg PO QDAY 03/09/22 03/09/22 03/16/22 Fluticasone Propionate [Flovent 100 mcg IH PRN 03/09/22 03/09/22 03/16/22 Diskus] Fluticasone/Umeclidin/Vilanter 1 each IH QDAY 03/09/22 03/09/22 03/16/22 [Trelegy Ellipta 100-62.5-25] Furosemide [Lasix] 20 mg PO BID 03/09/22 03/09/22 03/16/22 Insulin Lispro Protamin/Lispro 20 unit SQ BID 03/09/22 03/09/22 03/16/22 [Humalog Mix 75-25 Vial] Ipratropium/Albuterol Sulfate 1 ampul IH Q4HR PRN 03/09/22 03/09/22 03/16/22 [DUONEB *Not for PRN Use*] Simvastatin 20 mg PO QHS 03/09/22 03/09/22 03/16/22 Sodium Bicarbonate 650 mg PO BID 03/09/22 03/09/22 03/16/22 Telmisartan/Amlodipine 1 each PO QDAY 03/09/22 03/09/22 03/16/22 [Telmisartan-Amlodipine 40-5 mg] prednisoLONE ACETATE 1% [Pred 1 drops OD TID 03/09/22 03/09/22 03/16/22 Forte 1%] Previous Rx's Medication Instructions Recorded Last Taken Type Brimonidine 0.2% Ophthalmic Soln 1 drop OP TID 02/07/22 03/16/22 Rx Dorzolamide/Timolol(Nf) 2-0.5% 1 drops OU BID bottle 02/07/22 03/16/22 Rx [Cosopt (Nf)] Rhopressa 0.02% Oph Soln 1 drop OP QHS 02/07/22 03/16/22 Rx HYDROcodone/APAP 5-325 [Fordoche 1 each PO Q4HR PRN #24 tablet 03/19/22 Unknown Rx 5/325] levoFLOXacin [Levaquin] 750 mg PO QDAY #7 tablet 04/01/22 Unknown Rx Allergies Allergy/AdvReac Type Severity Reaction Status Date / Time amoxicillin Allergy Itching Verified 04/14/22 14:16 ED Review of Systems Constitutional: denies: chills, fever Respiratory: denies: cough, shortness of breath, wheezing Cardiovascular: denies: chest pain, palpitations Gastrointestinal: denies: abdominal pain, nausea, diarrhea Genitourinary: denies: urgency, dysuria Musculoskeletal: denies: back pain, joint swelling, arthralgia Skin: denies: rash, lesions Neurological: denies: headache, weakness, paresthesias Psychiatric: denies: anxiety, depression ED Past Medical Hx - Past Medical History Hx Hypertension: Yes Hx Heart Attack/AMI: No Hx Diabetes: Yes Hx GERD: Yes Hx Renal Disease: Yes Hx Sickle Cell Disease: No Hx Arthritis: Yes (AMBULATES WITH CANE) Hx Headaches / Migraines: No Hx Asthma: Yes Hx COPD: Yes Hx Tuberculosis: No Hx HIV: No Additional medical history: family unsure of hx pt unable to speak, throat cancer and post treatment had difficulty digesting his food this and put on Creon, elevated cholesterol - Surgical History Additional Surgical History: "Prostate surgery" - Social History Smoking Status: Former Smoker - Medications Home Medications: Home Medications Medication Instructions Recorded Confirmed Last Taken Type Tamsulosin [Flomax] 0.4 mg PO DAILY 08/14/13 03/09/22 03/16/22 History Levothyroxine [Synthroid] 100 mcg PO QAM 08/04/17 03/09/22 03/17/22 04:45 History Latanoprost 0.005% 0.05 mg OU HS 12/13/21 03/09/22 03/16/22 History Brimonidine 0.2% Ophthalmic Soln 1 drop OP TID 02/07/22 03/09/22 03/16/22 Rx Dorzolamide/Timolol(Nf) 2-0.5% 1 drops OU BID bottle 02/07/22 03/09/22 03/16/22 Rx [Cosopt (Nf)] Metoprolol [Lopressor TAB] 25 mg PO QDAY 02/07/22 03/09/22 03/17/22 04:45 History Rhopressa 0.02% Oph Soln 1 drop OP QHS 02/07/22 03/09/22 03/16/22 Rx Azelastine 0.1% (Nf) [Astelin (Nf)] 137 mcg NS BID 03/09/22 03/09/22 03/16/22 History Calcium Carbonate [Tums 500MG CHEW] 1,000 mg PO QHS 03/09/22 03/09/22 03/16/22 History Ferrous Sulfate [Feosol] 325 mg PO QDAY 03/09/22 03/09/22 03/16/22 History Fluticasone Propionate [Flovent 100 mcg IH PRN 03/09/22 03/09/22 03/16/22 History Diskus] Fluticasone/Umeclidin/Vilanter 1 each IH QDAY 03/09/22 03/09/22 03/16/22 History [Trelegy Ellipta 100-62.5-25] Furosemide [Lasix] 20 mg PO BID 03/09/22 03/09/22 03/16/22 History Insulin Lispro Protamin/Lispro 20 unit SQ BID 03/09/22 03/09/22 03/16/22 History [Humalog Mix 75-25 Vial] Ipratropium/Albuterol Sulfate 1 ampul IH Q4HR PRN 03/09/22 03/09/22 03/16/22 History [DUONEB *Not for PRN Use*] Simvastatin 20 mg PO QHS 03/09/22 03/09/22 03/16/22 History Sodium Bicarbonate 650 mg PO BID 03/09/22 03/09/22 03/16/22 History Telmisartan/Amlodipine 1 each PO QDAY 03/09/22 03/09/22 03/16/22 History [Telmisartan-Amlodipine 40-5 mg] prednisoLONE ACETATE 1% [Pred 1 drops OD TID 03/09/22 03/09/22 03/16/22 History Forte 1%] HYDROcodone/APAP 5-325 [Fordoche 1 each PO Q4HR PRN #24 tablet 03/19/22 Unknown Rx 5/325] levoFLOXacin [Levaquin] 750 mg PO QDAY #7 tablet 04/01/22 Unknown Rx ED Physical Exam - General Limitations: No Limitations - Head Head exam: Present: atraumatic, normocephalic - Respiratory Respiratory exam: Present: normal lung sounds bilaterally. Absent: respiratory distress - Cardiovascular Cardiovascular Exam: Present: regular rate, normal rhythm, systolic murmur - GI/Abdominal GI/Abdominal exam: Present: soft. Absent: distended, tenderness - Rectal Rectal exam: Present: deferred - Neurological Exam Neurological exam: Present: alert, oriented X3 - Psychiatric Psychiatric exam: Present: normal affect, normal mood - Skin Skin exam: Present: warm, dry, intact, normal color ED Medical Decision Making - Lab Data Result diagrams: 04/14/22 14:28 04/14/22 14:28 - Medical Decision Making Hemoglobin 6.6. 2 units of packed cells ordered. Serum calcium 7.9. 2 g of IV calcium gluconate ordered. Once infusion is complete we will repeat H&H and BMP and dispo per results. Signed out at shift change to Dr. Zamora. ED Disposition Clinical Impression: Anemia Qualifiers: Anemia type: unspecified type Qualified Code(s): D64.9 - Anemia, unspecified Disposition: HOME / SELF CARE / HOMELESS Condition: Stable Instructions: Blood Transfusion, Adult, Care After, [id number] Additional Instructions: Please do not hesitate to call or return to emergency if your symptoms worsen Call and schedule follow-up with your primary doctor in the next 3 to 5 days for progress Increase your daily fluid to help your hydration Referrals: LISET HOLT MD [Primary Care Provider] - 3-5 Days <NELLY ZAMORA - Last Filed: 04/15/22 01:47> ED Review of Systems ROS: Stated complaint: NEED BLOOD TRANSFUSION Other details as noted in HPI ED Course Vital Signs 04/14/22 04/14/22 04/14/22 14:10 18:05 18:20 Temperature 98.5 F 98.4 F 98.5 F Pulse Rate 85 61 92 H Respiratory 18 18 20 Rate Blood Pressure Blood Pressure 165/100 176/68 183/70 [Left] O2 Sat by Pulse 99 100 100 Oximetry 04/14/22 04/14/22 04/14/22 18:32 18:34 18:35 Temperature Pulse Rate 61 60 61 Respiratory 31 H 18 17 Rate Blood Pressure 176/68 176/68 183/70 Blood Pressure [Left] O2 Sat by Pulse 100 100 100 Oximetry 04/14/22 04/14/22 04/14/22 18:36 18:38 18:40 Temperature Pulse Rate 61 60 60 Respiratory 34 H 27 H 36 H Rate Blood Pressure 183/70 183/70 183/70 Blood Pressure [Left] O2 Sat by Pulse 100 100 100 Oximetry 04/14/22 04/14/22 04/14/22 18:41 18:42 18:44 Temperature Pulse Rate 62 61 Respiratory 23 19 Rate Blood Pressure 183/70 181/68 Blood Pressure [Left] O2 Sat by Pulse 100 100 100 Oximetry 04/14/22 04/14/22 04/14/22 18:46 18:48 18:50 Temperature Pulse Rate 61 62 61 Respiratory 20 28 H 21 Rate Blood Pressure 181/68 181/68 181/68 Blood Pressure [Left] O2 Sat by Pulse 100 100 100 Oximetry 04/14/22 04/14/22 04/14/22 18:52 18:54 18:56 Temperature Pulse Rate 63 62 60 Respiratory 21 19 17 Rate Blood Pressure 181/68 181/68 181/68 Blood Pressure [Left] O2 Sat by Pulse 100 100 100 Oximetry 04/14/22 04/14/22 04/14/22 18:58 19:00 19:02 Temperature Pulse Rate 60 61 59 L Respiratory 17 22 19 Rate Blood Pressure 181/68 181/68 181/68 Blood Pressure [Left] O2 Sat by Pulse 100 100 100 Oximetry 04/14/22 04/14/22 04/14/22 19:04 19:06 19:08 Temperature Pulse Rate 58 L 59 L 59 L Respiratory 30 H 18 15 Rate Blood Pressure 181/68 181/68 181/68 Blood Pressure [Left] O2 Sat by Pulse 100 100 100 Oximetry 04/14/22 04/14/22 04/14/22 19:10 19:12 19:14 Temperature Pulse Rate 59 L 59 L 62 Respiratory 20 22 18 Rate Blood Pressure 181/68 181/68 176/66 Blood Pressure [Left] O2 Sat by Pulse 100 100 100 Oximetry 04/14/22 04/14/22 04/14/22 19:16 19:18 19:20 Temperature Pulse Rate 59 L 59 L 61 Respiratory 19 16 9 L Rate Blood Pressure 176/66 176/66 176/66 Blood Pressure [Left] O2 Sat by Pulse 100 100 100 Oximetry 04/14/22 04/14/22 04/14/22 19:22 19:24 19:26 Temperature Pulse Rate 65 63 64 Respiratory 32 H 20 20 Rate Blood Pressure 176/66 176/66 176/66 Blood Pressure [Left] O2 Sat by Pulse 100 100 100 Oximetry 04/14/22 04/14/22 04/14/22 19:28 19:30 19:32 Temperature Pulse Rate 62 62 62 Respiratory 19 18 18 Rate Blood Pressure 176/66 176/66 176/66 Blood Pressure [Left] O2 Sat by Pulse 100 100 100 Oximetry 04/14/22 04/14/22 04/14/22 19:34 19:36 19:38 Temperature Pulse Rate 63 63 63 Respiratory 20 20 16 Rate Blood Pressure 176/66 176/66 176/66 Blood Pressure [Left] O2 Sat by Pulse 100 100 100 Oximetry 04/14/22 04/14/22 04/14/22 19:40 19:42 19:44 Temperature Pulse Rate 63 63 62 Respiratory 18 19 18 Rate Blood Pressure 176/66 176/66 180/75 Blood Pressure [Left] O2 Sat by Pulse 100 100 100 Oximetry 04/14/22 04/14/2204/14/22 19:46 19:48 19:50 Temperature Pulse Rate 61 62 62 Respiratory 20 20 17 Rate Blood Pressure 180/75 180/75 180/75 Blood Pressure [Left] O2 Sat by Pulse 100 100 100 Oximetry 04/14/22 04/14/22 04/14/22 19:52 19:54 19:56 Temperature Pulse Rate 61 61 62 Respiratory 19 18 19 Rate Blood Pressure 180/75 180/75 180/75 Blood Pressure [Left] O2 Sat by Pulse 100 100 100 Oximetry 04/14/22 04/14/22 04/14/22 19:58 20:00 20:02 Temperature Pulse Rate 60 61 61 Respiratory 15 16 15 Rate Blood Pressure 180/75 180/75 180/75 Blood Pressure [Left] O2 Sat by Pulse 100 100 100 Oximetry 04/14/22 04/14/22 04/14/22 20:04 20:06 20:08 Temperature Pulse Rate 60 60 60 Respiratory 16 16 16 Rate Blood Pressure 176/66 176/66 176/66 Blood Pressure [Left] O2 Sat by Pulse 100 100 100 Oximetry 04/14/22 04/14/22 04/14/22 20:10 20:12 20:14 Temperature Pulse Rate 59 L 64 62 Respiratory 16 15 15 Rate Blood Pressure 176/66 176/66 190/66 Blood Pressure [Left] O2 Sat by Pulse 100 100 100 Oximetry 04/14/22 04/14/22 04/14/22 20:16 20:18 20:20 Temperature Pulse Rate 66 70 66 Respiratory 17 16 13 Rate Blood Pressure 190/66 190/66 190/66 Blood Pressure [Left] O2 Sat by Pulse 100 100 100 Oximetry 04/14/22 04/14/22 04/14/22 20:22 20:24 20:26 Temperature Pulse Rate 66 65 65 Respiratory 19 21 20 Rate Blood Pressure 190/66 190/66 190/66 Blood Pressure [Left] O2 Sat by Pulse 100 100 100 Oximetry 04/14/22 04/14/22 04/14/22 20:28 20:30 20:32 Temperature Pulse Rate 66 66 64 Respiratory 22 21 19 Rate Blood Pressure 190/66 190/66 190/66 Blood Pressure [Left] O2 Sat by Pulse 100 100 100 Oximetry 04/14/22 04/14/22 04/14/22 20:34 20:36 20:38 Temperature Pulse Rate 63 62 62 Respiratory 20 18 20 Rate Blood Pressure 190/66 190/66 190/66 Blood Pressure [Left] O2 Sat by Pulse 100 100 100 Oximetry 04/14/22 04/14/22 04/14/22 20:40 20:42 20:44 Temperature 98.2 F Pulse Rate 62 64 64 Respiratory 18 17 20 Rate Blood Pressure 190/66 190/66 178/69 Blood Pressure [Left] O2 Sat by Pulse 100 100 100 Oximetry 04/14/22 04/14/22 04/14/22 20:46 20:48 20:50 Temperature Pulse Rate 64 64 63 Respiratory 21 22 20 Rate Blood Pressure 178/69 178/69 178/69 Blood Pressure [Left] O2 Sat by Pulse 100 100 99 Oximetry 04/14/22 04/14/22 04/14/22 20:52 20:54 20:56 Temperature Pulse Rate 62 62 62 Respiratory 19 20 18 Rate Blood Pressure 178/69 178/69 178/69 Blood Pressure [Left] O2 Sat by Pulse 99 98 98 Oximetry 04/14/22 04/14/22 04/14/22 20:58 21:00 21:02 Temperature Pulse Rate 60 61 63 Respiratory 18 19 19 Rate Blood Pressure 178/69 178/69 178/69 Blood Pressure [Left] O2 Sat by Pulse 98 97 97 Oximetry 04/14/22 04/14/22 04/14/22 21:04 21:06 21:08 Temperature Pulse Rate 62 60 61 Respiratory 20 18 18 Rate Blood Pressure 178/69 178/69 178/69 Blood Pressure [Left] O2 Sat by Pulse 97 98 98 Oximetry 04/14/22 04/14/22 04/14/22 21:10 21:12 21:14 Temperature Pulse Rate 59 L 60 61 Respiratory 16 18 16 Rate Blood Pressure 178/69 178/69 189/67 Blood Pressure [Left] O2 Sat by Pulse 98 98 98 Oximetry 04/14/22 04/14/22 04/14/22 21:16 21:18 21:20 Temperature Pulse Rate 63 61 62 Respiratory 18 14 17 Rate Blood Pressure 189/67 189/67 189/67 Blood Pressure [Left] O2 Sat by Pulse 98 98 98 Oximetry 04/14/22 04/14/22 04/14/22 21:22 21:24 21:26 Temperature Pulse Rate 60 62 63 Respiratory 16 15 16 Rate Blood Pressure 189/67 189/67 189/67 Blood Pressure [Left] O2 Sat by Pulse 97 98 97 Oximetry 04/14/22 04/14/22 04/14/22 21:28 21:30 21:32 Temperature Pulse Rate 64 64 65 Respiratory 17 12 11 L Rate Blood Pressure 189/67 189/67 189/67 Blood Pressure [Left] O2 Sat by Pulse 98 100 96 Oximetry 04/14/22 04/14/22 04/14/22 21:34 21:36 21:38 Temperature Pulse Rate 67 65 66 Respiratory 20 15 19 Rate Blood Pressure 189/67 189/67 189/67 Blood Pressure [Left] O2 Sat by Pulse 98 96 94 Oximetry 04/14/22 04/14/22 04/14/22 21:40 21:42 21:44 Temperature Pulse Rate 64 63 62 Respiratory 18 21 20 Rate Blood Pressure 189/67 189/67 182/66 Blood Pressure [Left] O2 Sat by Pulse 96 97 97 Oximetry 04/14/22 04/14/22 04/14/22 21:46 21:48 21:50 Temperature Pulse Rate 63 62 62 Respiratory 24 20 20 Rate Blood Pressure 182/66 182/66 182/66 Blood Pressure [Left] O2 Sat by Pulse 98 97 98 Oximetry 04/14/22 04/14/22 04/14/22 21:52 21:54 21:56 Temperature Pulse Rate 61 62 61 Respiratory 17 21 19 Rate Blood Pressure 182/66 182/66 182/66 Blood Pressure [Left] O2 Sat by Pulse 98 97 97 Oximetry 04/14/22 04/14/22 04/14/22 21:58 22:00 22:02 Temperature Pulse Rate 61 62 62 Respiratory 18 22 20 Rate Blood Pressure 182/66 182/66 182/66 Blood Pressure [Left] O2 Sat by Pulse 97 98 98 Oximetry 04/14/22 04/14/22 04/14/22 22:04 22:06 22:08 Temperature Pulse Rate 63 64 63 Respiratory 19 21 12 Rate Blood Pressure 182/66 182/66 182/66 Blood Pressure [Left] O2 Sat by Pulse 98 97 97 Oximetry 04/14/22 04/14/22 04/14/22 22:10 22:12 22:14 Temperature Pulse Rate 63 63 62 Respiratory 18 21 19 Rate Blood Pressure 182/66 182/66 186/70 Blood Pressure [Left] O2 Sat by Pulse 97 97 97 Oximetry 04/14/22 04/14/22 04/14/22 22:16 22:18 22:20 Temperature Pulse Rate 61 63 62 Respiratory 19 22 21 Rate Blood Pressure 186/70 186/70 186/70 Blood Pressure [Left] O2 Sat by Pulse 97 98 98 Oximetry 04/14/22 04/14/22 04/14/22 22:22 22:24 22:26 Temperature Pulse Rate 61 61 63 Respiratory 16 20 18 Rate Blood Pressure 186/70 186/70 186/70 Blood Pressure [Left] O2 Sat by Pulse 97 98 98 Oximetry 04/14/22 22:28 Temperature Pulse Rate 64 Respiratory 20 Rate Blood Pressure 186/70 Blood Pressure [Left] O2 Sat by Pulse 98 Oximetry - Reevaluation(s) Reevaluation #1: 04/15/22 01:45 Patient hemoglobin and hematocrits improved to 9.5/28.3 after 2 units of red blood cells and patient denied any allergy or issue after the transfusion. We will discharge patient home to close follow-up with the primary doctor and warning to return to emergency room if symptoms worsen. ED Medical Decision Making - Lab Data Result diagrams: 04/15/22 00:22 04/15/22 00:22 Critical care attestation.: If time is entered above; I have spent that time in minutes in the direct care of this critically ill patient, excluding procedure time. ED Disposition Is pt being admited?: No Does the pt Need Aspirin: No Time of Disposition: 01:47
[2022-04-15 00:35] LABS: Hematocrit 28.3 % (35.5-45.6); Hemoglobin 9.5 gm/dl (11.8-15.2)
[2022-04-15 00:55] LABS: Calcium 7.8 mg/dL (8.4-10.2)
[2022-04-15 02:20] VITALS: BP 183/69
== END 2022-04-15 01:50 | disposition home or self-care (01) ==
LOC: ED 13:07
DX: D64.9 Anemia, unspecified (principal); Z88.0 Allergy status to penicillin; I10 Essential (primary) hypertension
CPT/HCPCS: 36415; 36430; 80048; 80053; 85014; 85018; 85025; 85610; 85730; 86850; 86900; 86901; 86920; 96374; 99283; J0610; J7040; P9016

== ENCOUNTER 2022-05-05 11:01 | Emergency (ER) | payer MEDICARE ==
[2022-05-05 12:07] LABS: Basophils % (Auto) 0.3 % (0.0-1.8); Eosinophils # (Auto) 0.1 K/mm3 (0.0-0.4); Eosinophils % (Auto) 1.4 % (0.0-4.3); Hematocrit 26.7 % (35.5-45.6); Hemoglobin 8.6 gm/dl (11.8-15.2); Lymphocytes # (Auto) 1.2 K/mm3 (1.2-5.4); Lymphocytes % (Auto) 16.4 % (13.4-35.0); Mean Corpuscular HGB Conc 32 % (32-34); Mean Corpuscular Volume 101 fl (84-94); Monocytes # (Auto) 0.7 K/mm3 (0.0-0.8); Monocytes % (Auto) 9.7 % (0.0-7.3); Platelet Count 105 K/mm3 (140-440); Red Blood Count 2.64 M/mm3 (3.65-5.03); Red Cell Distribution Width 21.8 % (13.2-15.2)
[2022-05-05 12:35] LABS: Albumin 2.9 g/dL (3.9-5); Calcium 6.4 mg/dL (8.4-10.2)
--- NOTE | 2022-05-05 20:51 | Emergency Department Report ---
ED General Adult HPI - General Chief complaint: Medical Clearance Stated complaint: BLOOD TRANSFUSION Time Seen by Provider: 05/05/22 19:45 Source: family Mode of arrival: Ambulatory Limitations: Language Barrier - History of Present Illness Initial comments: The patient presents to the emergency department with a son with a chief complaint of anemia. Patient is a dialysis recipient who goes on Tuesdays, , Tuesday. Yesterday his hemoglobin was checked at his dialysis center and they were called today and told his hemoglobin was 6.8. Patient is asymptomatic. Son states his father has had multiple transfusions in the past. -: unknown Improves with: none Worsens with: none Associated Symptoms: denies other symptoms Treatments Prior to Arrival: none - Related Data Home Medications Medication Instructions Recorded Confirmed Last Taken Tamsulosin [Flomax] 0.4 mg PO DAILY 08/14/13 03/09/22 03/16/22 Levothyroxine [Synthroid] 100 mcg PO QAM 08/04/17 03/09/22 03/17/22 04:45 Latanoprost 0.005% 0.05 mg OU HS 12/13/21 03/09/22 03/16/22 Metoprolol [Lopressor TAB] 25 mg PO QDAY 02/07/22 03/09/22 03/17/22 04:45 Azelastine 0.1% (Nf) [Astelin (Nf)] 137 mcg NS BID 03/09/22 03/09/22 03/16/22 Calcium Carbonate [Tums 500MG CHEW] 1,000 mg PO QHS 03/09/22 03/09/22 03/16/22 Ferrous Sulfate [Feosol] 325 mg PO QDAY 03/09/22 03/09/22 03/16/22 Fluticasone Propionate [Flovent 100 mcg IH PRN 03/09/22 03/09/22 03/16/22 Diskus] Fluticasone/Umeclidin/Vilanter 1 each IH QDAY 03/09/22 03/09/22 03/16/22 [Trelegy Ellipta 100-62.5-25] Furosemide [Lasix] 20 mg PO BID 03/09/22 03/09/22 03/16/22 Insulin Lispro Protamin/Lispro 20 unit SQ BID 03/09/22 03/09/22 03/16/22 [Humalog Mix 75-25 Vial] Ipratropium/Albuterol Sulfate 1 ampul IH Q4HR PRN 03/09/22 03/09/22 03/16/22 [DUONEB *Not for PRN Use*] Simvastatin 20 mg PO QHS 03/09/22 03/09/22 03/16/22 Sodium Bicarbonate 650 mg PO BID 03/09/22 03/09/22 03/16/22 Telmisartan/Amlodipine 1 each PO QDAY 03/09/22 03/09/22 03/16/22 [Telmisartan-Amlodipine 40-5 mg] prednisoLONE ACETATE 1% [Pred 1 drops OD TID 03/09/22 03/09/22 03/16/22 Forte 1%] Previous Rx's Medication Instructions Recorded Last Taken Type Brimonidine 0.2% Ophthalmic Soln 1 drop OP TID 02/07/22 03/16/22 Rx Dorzolamide/Timolol(Nf) 2-0.5% 1 drops OU BID bottle 02/07/22 03/16/22 Rx [Cosopt (Nf)] Rhopressa 0.02% Oph Soln 1 drop OP QHS 02/07/22 03/16/22 Rx HYDROcodone/APAP 5-325 [Carver 1 each PO Q4HR PRN #24 tablet 03/19/22 Unknown Rx 5/325] levoFLOXacin [Levaquin] 750 mg PO QDAY #7 tablet 04/01/22 Unknown Rx Allergies Allergy/AdvReac Type Severity Reaction Status Date / Time amoxicillin Allergy Itching Verified 05/05/22 11:13 ED Review of Systems ROS: Stated complaint: BLOOD TRANSFUSION Other details as noted in HPI Comment: All other systems reviewed and negative Constitutional: denies: chills, fever Eyes: denies: eye pain, eye discharge, vision change ENT: denies: ear pain, throat pain Respiratory: denies: cough, shortness of breath, wheezing Cardiovascular: denies: chest pain, palpitations Endocrine: no symptoms reported Gastrointestinal: denies: abdominal pain, nausea, diarrhea Genitourinary: denies: urgency, dysuria Musculoskeletal: denies: back pain, joint swelling, arthralgia Skin: denies: rash, lesions Neurological: denies: headache, weakness, paresthesias Psychiatric: denies: anxiety, depression Hematological/Lymphatic: denies: easy bleeding, easy bruising ED Past Medical Hx - Past Medical History Hx Hypertension: Yes Hx Heart Attack/AMI: No Hx Diabetes: Yes Hx GERD: Yes Hx Renal Disease: Yes Hx Sickle Cell Disease: No Hx Arthritis: Yes (AMBULATES WITH CANE) Hx Headaches / Migraines: No Hx Asthma: Yes Hx COPD: Yes Hx Tuberculosis: No Hx HIV: No Additional medical history: family unsure of hx pt unable to speak, throat cancer and post treatment had difficulty digesting his food this and put on Creon, elevated cholesterol - Surgical History Additional Surgical History: "Prostate surgery" - Social History Smoking Status: Former Smoker - Medications Home Medications: Home Medications Medication Instructions Recorded Confirmed Last Taken Type Tamsulosin [Flomax] 0.4 mg PO DAILY 08/14/13 03/09/22 03/16/22 History Levothyroxine [Synthroid] 100 mcg PO QAM 08/04/17 03/09/22 03/17/22 04:45 History Latanoprost 0.005% 0.05 mg OU HS 12/13/21 03/09/22 03/16/22 History Brimonidine 0.2% Ophthalmic Soln 1 drop OP TID 02/07/22 03/09/22 03/16/22 Rx Dorzolamide/Timolol(Nf) 2-0.5% 1 drops OU BID bottle 02/07/22 03/09/22 03/16/22 Rx [Cosopt (Nf)] Metoprolol [Lopressor TAB] 25 mg PO QDAY 02/07/22 03/09/22 03/17/22 04:45 History Rhopressa 0.02% Oph Soln 1 drop OP QHS 02/07/22 03/09/22 03/16/22 Rx Azelastine 0.1% (Nf) [Astelin (Nf)] 137 mcg NS BID 03/09/22 03/09/22 03/16/22 History Calcium Carbonate [Tums 500MG CHEW] 1,000 mg PO QHS 03/09/22 03/09/22 03/16/22 History Ferrous Sulfate [Feosol] 325 mg PO QDAY 03/09/22 03/09/22 03/16/22 History Fluticasone Propionate [Flovent 100 mcg IH PRN 03/09/22 03/09/22 03/16/22 History Diskus] Fluticasone/Umeclidin/Vilanter 1 each IH QDAY 03/09/22 03/09/22 03/16/22 History [Trelegy Ellipta 100-62.5-25] Furosemide [Lasix] 20 mg PO BID 03/09/22 03/09/22 03/16/22 History Insulin Lispro Protamin/Lispro 20 unit SQ BID 03/09/22 03/09/22 03/16/22 History [Humalog Mix 75-25 Vial] Ipratropium/Albuterol Sulfate 1 ampul IH Q4HR PRN 03/09/22 03/09/22 03/16/22 History [DUONEB *Not for PRN Use*] Simvastatin 20 mg PO QHS 03/09/22 03/09/22 03/16/22 History Sodium Bicarbonate 650 mg PO BID 03/09/22 03/09/22 03/16/22 History Telmisartan/Amlodipine 1 each PO QDAY 03/09/22 03/09/22 03/16/22 History [Telmisartan-Amlodipine 40-5 mg] prednisoLONE ACETATE 1% [Pred 1 drops OD TID 03/09/22 03/09/22 03/16/22 History Forte 1%] HYDROcodone/APAP 5-325 [Carver 1 each PO Q4HR PRN #24 tablet 03/19/22 Unknown Rx 5/325] levoFLOXacin [Levaquin] 750 mg PO QDAY #7 tablet 04/01/22 Unknown Rx ED Physical Exam - General Limitations: Language Barrier General appearance: alert, in no apparent distress - Head Head exam: Present: atraumatic, normocephalic - Eye Eye exam: Present: normal appearance, PERRL, EOMI - ENT ENT exam: Present: mucous membranes moist - Neck Neck exam: Present: normal inspection - Respiratory Respiratory exam: Present: normal lung sounds bilaterally. Absent: respiratory distress - Cardiovascular Cardiovascular Exam: Present: regular rate, normal rhythm, other (Patient has good cap refill). Absent: systolic murmur, diastolic murmur, rubs, gallop - GI/Abdominal GI/Abdominal exam: Present: soft, normal bowel sounds. Absent: distended, tenderness - Rectal Rectal exam: Present: deferred - Extremities Exam Extremities exam: Present: normal inspection - Back Exam Back exam: Present: normal inspection - Neurological Exam Neurological exam: Present: alert, oriented X3, CN II-XII intact. Absent: motor sensory deficit - Psychiatric Psychiatric exam: Present: normal affect, normal mood - Skin Skin exam: Present: warm, dry, intact, normal color. Absent: rash ED Course Vital Signs 05/05/22 11:08 Temperature 99 F Pulse Rate 72 Respiratory 18 Rate Blood Pressure 144/52 [Left] O2 Sat by Pulse 99 Oximetry ED Medical Decision Making - Lab Data Result diagrams: 05/05/22 11:34 05/05/22 11:31 Lab Results 05/05/22 05/05/22 05/05/22 Range/Units 11:31 11:31 11:34 WBC 7.3 (4.5-11.0) K/mm3 RBC 2.64 L (3.65-5.03) M/mm3 Hgb 8.6 L (11.8-15.2) gm/dl Hct 26.7 L (35.5-45.6) % MCV 101 H (84-94) fl MCH 33 H (28-32) pg MCHC 32 (32-34) % RDW 21.8 H (13.2-15.2) % Plt Count 105 L (140-440) K/mm3 Lymph % (Auto) 16.4 (13.4-35.0) % Todd % (Auto) 9.7 H (0.0-7.3) % Eos % (Auto) 1.4 (0.0-4.3) % Baso % (Auto) 0.3 (0.0-1.8) % Lymph # (Auto) 1.2 (1.2-5.4) K/mm3 Todd # (Auto) 0.7 (0.0-0.8) K/mm3 Eos # (Auto) 0.1 (0.0-0.4) K/mm3 Baso # (Auto) 0.0 (0.0-0.1) K/mm3 Seg Neutrophils % 72.2 H (40.0-70.0) % Seg Neutrophils # 5.3 (1.8-7.7) K/mm3 Sodium 146 H (137-145) mmol/L Potassium 3.9 (3.6-5.0) mmol/L Chloride 104.3 (98-107) mmol/L Carbon Dioxide 28 (22-30) mmol/L Anion Gap 18 mmol/L BUN 35 H (9-20) mg/dL Creatinine 4.8 H (0.8-1.3) mg/dL Estimated GFR 12 ml/min BUN/Creatinine Ratio 7 % Glucose 204 H (75-100) mg/dL Calcium 6.4 L (8.4-10.2) mg/dL Total Bilirubin 0.50 (0.1-1.2) mg/dL AST 27 (5-40) units/L ALT 17 (7-56) units/L Alkaline Phosphatase 56 (35-129) units/L Total Protein 5.3 L (6.3-8.2) g/dL Albumin 2.9 L (3.9-5) g/dL Albumin/Globulin Ratio 1.2 % Blood Type B POSITIVE Antibody Screen Negative Critical care attestation.: If time is entered above; I have spent that time in minutes in the direct care of this critically ill patient, excluding procedure time. ED Disposition Clinical Impression: Anemia, End stage renal disease on dialysis Disposition: HOME / SELF CARE / HOMELESS Is pt being admited?: No Does the pt Need Aspirin: No Condition: Stable Instructions: Dialysis Additional Instructions: Return if worse Referrals: RAJEEV AUGUSTE MD [Staff Physician] - 3-5 Days Time of Disposition: 20:50
[2022-05-05 21:31] VITALS: BP 141/70
== END 2022-05-05 21:00 | disposition home or self-care (01) ==
LOC: ED 11:01
DX: D64.9 Anemia, unspecified (principal); I12.0 Hypertensive chronic kidney disease with stage 5 chronic kidney disease or end stage renal disease; E11.22 Type 2 diabetes mellitus with diabetic chronic kidney disease; N18.6 End stage renal disease; J44.9 Chronic obstructive pulmonary disease, unspecified; M19.90 Unspecified osteoarthritis, unspecified site; Z88.1 Allergy status to other antibiotic agents; Z79.899 Other long term (current) drug therapy; Z99.2 Dependence on renal dialysis
CPT/HCPCS: 36415; 80053; 85025; 86850; 86900; 86901; 99283